=== PATIENT | female | born 1930 | race Hispanic/Latino ===

== ENCOUNTER 2017-10-15 12:21 | Emergency (ER) | payer OTHER ==
--- NOTE | 2017-10-15 13:42 | RAD REPORT ---
EXAM DESCRIPTION: RAD - Hip Right 2 View - 10/15/2017 1:23 pm CLINICAL HISTORY: Right hip pain, noticeable limp COMPARISON: None. FINDINGS: AP and frog-leg views of the right hip were obtained. There is no fracture or dislocation . Femoral head maintains smooth rounded contour. No AVN or focal femoral head abnormality. Very mini mal degenerative change along the acetabular rim. No periarticular mass or hematoma. IMPRESSION: Negative right hip examination for acute findings.
[2017-10-15] MEDS ORDERED: HYDROCODONE/APAP 5/325 MG TAB ONE (15:46)
[2017-10-15] MEDS ORDERED: KETOROLAC 30 MG/ML INJ ONE (15:46)
[2017-10-15 15:53] LABS: Urine Blood NEGATIVE (NEG); Urine Glucose NEGATIVE (NEG); Urine Protein NEGATIVE (NEG)
--- NOTE | 2017-10-15 16:01 | ER ---
Nurse's Notes [facility] Name: Nela Ennis Age: 87 yrs Sex: Female : 1930 Arrival Date: 10/15/2017 Time: 12:26 Bed 27 Private MD: Diagnosis: Pain in right hip Presentation: 10/15 12:39 Presenting complaint: Child states: its been a couple of days shes been limping and hj been complaining of R hip pain; denies trauma or fall;. Transition of care: patient was not received from another setting of care. Onset of symptoms was October 15, 2017. Care prior to arrival: None. 12:39 Method Of Arrival: Ambulatory hj 12:39 Acuity: BUFFY 4 hj Triage Assessment: 12:42 General: Appears in no apparent distress. uncomfortable, Behavior is calm, cooperative, hj appropriate for age. Pain: Complains of pain in right hip. Historical: - Allergies: 12:41 PENICILLINS; hj - Home Meds: 12:41 clopidogrel 75 mg Oral tab 1 tab once daily [Active]; Crestor 5 mg Oral tab 1 tab once hj daily [Active]; donepezil 5 mg Oral TbDL 1 tab once daily [Active]; memantine 10 mg Oral tab 1 tab 2 times per day [Active]; - PMHx: 12:41 Alzheimers; CAD; High Cholesterol; hj - PSHx: 12:41 Knee surgery; shoulder surgery; Heart stents; hj - Immunization history:: Pneumococcal vaccine is up to date, Flu vaccine is not up to date. - Social history:: Smoking status: Patient/guardian denies using tobacco. Screenin:12 Abuse screen: Denies threats or abuse. Nutritional screening: No deficits noted. kb1 Tuberculosis screening: No symptoms or risk factors identified. Fall Risk Gait- Impaired (20 pts.). Assessment: 15:11 General: Appears in no apparent distress. Behavior is calm, cooperative. Pain: kb1 Complains of pain in right hip, right side of back. Neuro: Level of Consciousness is awake, alert, obeys commands, Oriented to person, place, time, situation. Cardiovascular: Patient's skin is warm and dry. Respiratory: Respiratory effort is even, unlabored, Respiratory pattern is regular, symmetrical. GI: No signs and/or symptoms were reported involving the gastrointestinal system. : No signs and/or symptoms were reported regarding the genitourinary system. Derm: Skin is pink, warm \T\ dry. Musculoskeletal: Reports pain in right hip, worse when getting up or sitting down. 16:14 Reassessment: Patient appears in no apparent distress at this time. Patient and/or kb1 family updated on plan of care and expected duration. Pain level reassessed. Patient denies pain at this time. Vital Signs: 12:42 BP 118 / 37; Pulse 65; Resp 18; Temp 98.0(TE); Pulse Ox 99% on R/A; Weight 55.79 kg; hj Height 5 ft. 2 in. (157.48 cm); Pain 10/10; 15:12 BP 149 / 50; Pulse 63; Resp 18; Pulse Ox 99% on R/A; kb1 16:15 BP 143 / 48; Pulse 53; Resp 18; Pulse Ox 99% ; kb1 12:42 Body Mass Index 22.50 (55.79 kg, 157.48 cm) ED Course: 12:26 Patient arrived in ED. mr 12:41 Triage completed. hj 12:42 Arm band placed on left wrist. hj 13:16 X-ray completed. Patient tolerated procedure well. Patient moved back from radiology. 1 14:57 Mona Wagner, RUTH is Primary Nurse. kb1 15:02 [facility]C [facility] snw 15:02 Tan Hester MD is Attending Physician. snw 15:12 Patient has correct armband on for positive identification. Bed in low position. Call kb1 light in reach. Side rails up X 1. Pulse ox on. NIBP on. 15:12 No provider procedures requiring assistance completed. kb1 15:45 Straight cath inserted, using sterile technique, Specimen obtained. kb1 16:00 Trae Casillas MD is Referral Physician. snw 16:16 Patient did not have IV access during this emergency room visit. kb1 Administered Medications: 15:46 Drug: [place] 5 mg-325 mg 1 tabs Route: PO; kb1 15:46 Drug: TORadol 30 mg Route: IM; Site: right deltoid; kb1 Outcome: 16:01 Discharge ordered by . snw 16:15 Discharged to home via wheelchair, with family. kb1 16:15 Condition: improved 16:15 Discharge instructions given to family, Instructed on discharge instructions, follow up and referral plans. medication usage, Demonstrated understanding of instructions, follow-up care, medications, Prescriptions given X 1. 16:26 Patient left the ED. kb1 Signatures: Nena Hernandez, ZEE-C INSERTING OPERATOR-[place] Ynes Wallace Pamela Edwards mh1 Marcos Lozano RN RN hj Mona Wagner RN RN kb1 Corrections: (The following items were deleted from the chart) 12:44 12:42 Pulse 65bpm; Resp 18bpm; Pulse Ox 99% RA; Temp 98.0F Temporal; 55.79 kg; Height 5 hj ft. 2 in.; BMI: 22.5; Pain 10/10; hj
--- NOTE | 2017-10-15 16:02 | EDPHYS ---
Physician Documentation [facility] Name: Nela Ennis Age: 87 yrs Sex: Female : 1930 Arrival Date: 10/15/2017 Time: 12:26 Bed 27 Private MD: ED Physician Tan Hester HPI: 10/15 15:23 This 87 yrs old Female presents to ER via Ambulatory with complaints of Hip snw Pain. 15:23 The patient or guardian reports pain. that occurred at home, sustained from unknown snw reason, There is no obvious deformity, The patient is able to ambulate with assistance. The patient is able to bear their full body weight. There is no radiation of the patient's discomfort. The patient was discovered at or immediately after the incident. The complaints affect the right hip. Onset: The symptoms/episode began/occurred gradually, 4 day(s) ago, and became persistent. Associated signs and symptoms: Loss of consciousness: the patient experienced no loss of consciousness. Severity of symptoms: At their worst the symptoms were moderate. It is unknown whether or not the patient has had similar symptoms in the past. The patient has not recently seen a physician, the patient's primary care provider is Dr. Casillas. No hx of fall, trauma. Historical: - Allergies: 12:41 PENICILLINS; hj - Home Meds: 12:41 clopidogrel 75 mg Oral tab 1 tab once daily [Active]; Crestor 5 mg Oral tab 1 tab once hj daily [Active]; donepezil 5 mg Oral TbDL 1 tab once daily [Active]; memantine 10 mg Oral tab 1 tab 2 times per day [Active]; - PMHx: 12:41 Alzheimers; CAD; High Cholesterol; hj - PSHx: 12:41 Knee surgery; shoulder surgery; Heart stents; hj - Immunization history:: Pneumococcal vaccine is up to date, Flu vaccine is not up to date. - Social history:: Smoking status: Patient/guardian denies using tobacco. ROS: 15:23 Constitutional: Negative for fever, chills, and weight loss, Eyes: Negative for injury, snw pain, redness, and discharge, ENT: Negative for injury, pain, and discharge, Neck: Negative for injury, pain, and swelling, Cardiovascular: Negative for chest pain, palpitations, and edema, Respiratory: Negative for shortness of breath, cough, wheezing, and pleuritic chest pain, Abdomen/GI: Negative for abdominal pain, nausea, vomiting, diarrhea, and constipation, Back: Negative for injury and pain, : Negative for injury, bleeding, discharge, and swelling, Skin: Negative for injury, rash, and discoloration, Neuro: Negative for headache, weakness, numbness, tingling, and seizure. 15:23 MS/extremity: Positive for contusion, pain, of the right hip. Exam: 15:26 Constitutional: This is a well developed, well nourished patient who is awake, alert, snw and in no acute distress. Head/Face: Normocephalic, atraumatic. Eyes: Pupils equal round and reactive to light, extra-ocular motions intact. Lids and lashes normal. Conjunctiva and sclera are non-icteric and not injected. Cornea within normal limits. Periorbital areas with no swelling, redness, or edema. ENT: Nares patent. No nasal discharge, no septal abnormalities noted. Tympanic membranes are normal and external auditory canals are clear. Oropharynx with no redness, swelling, or masses, exudates, or evidence of obstruction, uvula midline. Mucous membranes moist. Neck: Trachea midline, no thyromegaly or masses palpated, and no cervical lymphadenopathy. Supple, full range of motion without nuchal rigidity, or vertebral point tenderness. No Meningismus. Chest/axilla: Normal chest wall appearance and motion. Nontender with no deformity. No lesions are appreciated. Cardiovascular: Regular rate and rhythm with a normal S1 and S2. No gallops, murmurs, or rubs. Normal PMI, no JVD. No pulse deficits. Respiratory: Lungs have equal breath sounds bilaterally, clear to auscultation and percussion. No rales, rhonchi or wheezes noted. No increased work of breathing, no retractions or nasal flaring. Abdomen/GI: Soft, non-tender, with normal bowel sounds. No distension or tympany. No guarding or rebound. No evidence of tenderness throughout. Back: No spinal tenderness. No costovertebral tenderness. Full range of motion. Skin: Warm, dry with normal turgor. Normal color with no rashes, no lesions, and no evidence of cellulitis. 15:26 Musculoskeletal/extremity: ROM: no acute changes, pain to palpation of right superior iliac crest 15:26 Neuro: Exam negative for acute changes, hx of dementia. Vital Signs: 12:42 BP 118 / 37; Pulse 65; Resp 18; Temp 98.0(TE); Pulse Ox 99% on R/A; Weight 55.79 kg; hj Height 5 ft. 2 in. (157.48 cm); Pain 10/10; 15:12 BP 149 / 50; Pulse 63; Resp 18; Pulse Ox 99% on R/A; kb1 16:15 BP 143 / 48; Pulse 53; Resp 18; Pulse Ox 99% ; kb1 12:42 Body Mass Index 22.50 (55.79 kg, 157.48 cm) hj MDM: 15:12 Patient medically screened. snw 16:07 Data reviewed: vital signs, nurses notes. Data interpreted: Pulse oximetry: on room air snw is 99 %. Interpretation: normal. Counseling: I had a detailed discussion with the patient and/or guardian regarding: the historical points, exam findings, and any diagnostic results supporting the discharge/admit diagnosis, the presence of at least one elevated blood pressure reading (>120/80) during this emergency department visit, lab results, radiology results, the need for outpatient follow up, to return to the emergency department if symptoms worsen or persist or if there are any questions or concerns that arise at home. Special discussion: I have referred the patient to see his PCP for further evaluation of high blood pressure. Based on the history and exam findings, there is no indication for further emergent testing or inpatient evaluation. I discussed with the patient/guardian the need to see the primary care provider for further evaluation of the symptoms. 10/15 15:22 Order name: Urine Culture snw 10/15 15:22 Order name: Urine Microscopic Only snw 10/15 12:43 Order name: XRAY Hip RIGHT 2 view hj 10/15 15:45 Order name: Urine Dipstick--Ancillary (enter results) ms 10/15 15:54 Order name: Urine Dipstick-Ancillary; Complete Time: 16:00 EDMS 10/15 16:22 Order name: Urine Microscopic Only; Complete Time: 17:31 EDMS 10/15 13:43 Order name: RAD; Complete Time: 15:02 EDMS 10/15 15:22 Order name: Urine Dipstick-Ancillary (obtain specimen); Complete Time: 15:45 snw 10/15 15:22 Order name: Cath; Complete Time: 15:45 snw Administered Medications: 15:46 Drug: [place] 5 mg-325 mg 1 tabs Route: PO; kb1 15:46 Drug: TORadol 30 mg Route: IM; Site: right deltoid; kb1 Disposition: 10/16 14:47 Co-signature as Attending Physician, Tan Hester MD I agree with the assessment and keegan plan of care. Disposition: 10/15/17 16:01 Discharged to Home. Impression: Pain in right hip. - Condition is Stable. - Discharge Instructions: Arthralgia, Musculoskeletal Pain, Hip Pain, Cryotherapy, Heat Therapy. - Prescriptions for Tylenol- Codeine #3 300-30 mg Oral Tablet - take 2 tablets by ORAL route every 6 hours As needed; 20 tablet. - Medication Reconciliation Form, Thank You Letter, Antibiotic Education, Prescription Opioid Use form. - Follow up: Trae Casillas MD; When: 1 - 2 days; Reason: Recheck today's complaints, Continuance of care, Re-evaluation by your physician. Follow up: Emergency Department; When: As needed; Reason: Worsening of condition. Signatures: Dispatcher [employer] Tan Mota MD MD cha Therrien, Shelly, JUNIOR WEB DEVELOPER-C JUNIOR WEB DEVELOPER-Csnw Marcos Lozano, RN Mona Saleem RN RN kb1
[2017-10-15 16:21] LABS: Urine RBC <5 /HPF (NONE SEEN)
[2017-10-15 16:22] LABS: Urine Bacteria <20 /HPF (<20); Urine Culture Reflex Order NOT NEEDED
== END 2017-10-15 16:26 | disposition home or self-care (01) ==
LOC: ER 12:21
DX: M25.551 Pain in right hip; Z88.0 Allergy status to penicillin; E78.00 Pure hypercholesterolemia, unspecified; I25.10 Atherosclerotic heart disease of native coronary artery without angina pectoris
CPT/HCPCS: 51702; 81003; 81015; 87086; 87088; 96372; 99284

== ENCOUNTER 2017-11-25 08:59 | Inpatient (IN) | payer OTHER ==
[2017-11-25] MEDS ORDERED: FENTANYL CITR 100 MCG/2 ML ONE (09:19)
[2017-11-25] MEDS ORDERED: ONDANSETRON 4 MG/2 ML VIAL ONE (09:20)
[2017-11-25 09:40] LABS: Protime INR 0.97
[2017-11-25 09:41] LABS: Absolute Lymphocytes (CBC) 0.9 K/uL (0.7-4.9); Absolute Monocytes 0.2 K/uL (0.1-1.3); Absolute Neutrophil 4.6 K/uL (1.8-8.0); Basophils % 0.2 % (0-1.3); Eosinophils % 0.9 % (0-4.4); Hematocrit 32.3 % (36.0-45.0); Lymphocytes % 16.2 % (15.3-44.8); MCV 89.2 fL (80-100); MPV 9.7 fL (7.6-11.3); Monocytes % 4.3 % (3.3-12.3); RBC Red Blood Cell Count 3.62 M/uL (3.86-4.86)
[2017-11-25 10:19] LABS: Potassium 3.9 mEq/L (3.6-5.0)
--- NOTE | 2017-11-25 10:23 | RAD REPORT ---
EXAM DESCRIPTION: RAD - Hip Right 2 View - 11/25/2017 10:03 am CLINICAL HISTORY: Fall, pain COMPARISON: None. FINDINGS: Spiral fracture involving the proximal shaft of the right femur is noted with small butter fly fragment. Degenerative changes involve the right hip. No dislocation evident. Fracture of the inferior and superior pubic rami of the pelvis also seen.
--- NOTE | 2017-11-25 10:24 | RAD REPORT ---
EXAM DESCRIPTION: RAD - Knee Right 3 View - 11/25/2017 10:03 am CLINICAL HISTORY: Fall, right knee pain COMPARISON: None. FINDINGS: Right total knee arthroplasty is present. A small suprapatellar joint effusion is seen. An acute fracture or dislocation is not present.
--- NOTE | 2017-11-25 10:35 | EDPHYS ---
Physician Documentation [facility] Name: Nela Ennis Age: 87 yrs Sex: Female : 1930 Arrival Date: 11/25/2017 Time: 09:14 Bed 16 Private MD: ED Physician Jese Haskins HPI: 11/25 10:16 This 87 yrs old Female presents to ER via EMS with complaints of fall. jr8 10:16 The patient presents with decreased range of motion, pain, tenderness. The complaints jr8 affect the right leg. Onset: The symptoms/episode began/occurred acutely, today. Modifying factors: The symptoms are alleviated by nothing. the symptoms are aggravated by movement. Associated signs and symptoms: The patient has no apparent associated signs or symptoms. Severity of symptoms: At their worst the symptoms were moderate, in the emergency department the symptoms are unchanged. The patient has not experienced similar symptoms in the past. The patient has not recently seen a physician. Patient stated that she normally has a hard time walking. Miss stepped and fell. Pain to right hip and knee. Brought in by EMS . Historical: - Allergies: 09:25 PENICILLINS; em - Home Meds: 09:25 memantine 10 mg Oral tab 1 tab 2 times per day [Active]; clopidogrel 75 mg Oral tab 1 em tab once daily [Active]; Tylenol #3 Oral as needed [Active]; rosuvastatin 5 mg oral tab 1 tab once daily [Active]; - PMHx: 09:25 Alzheimers; High Cholesterol; CAD; em - PSHx: 09:26 Unable to obtain; hj - Immunization history:: Flu vaccine is not up to date. - Social history:: Smoking status: Patient/guardian denies using tobacco. ROS: 10:16 Eyes: Negative for injury, pain, redness, and discharge, ENT: Negative for injury, jr8 pain, and discharge, Neck: Negative for injury, pain, and swelling, Cardiovascular: Negative for chest pain, palpitations, and edema, Respiratory: Negative for shortness of breath, cough, wheezing, and pleuritic chest pain, Abdomen/GI: Negative for abdominal pain, nausea, vomiting, diarrhea, and constipation, Back: Negative for injury and pain, Skin: Negative for injury, rash, and discoloration, Neuro: Negative for headache, weakness, numbness, tingling, and seizure. 10:16 MS/extremity: Positive for decreased range of motion, pain, tenderness, of the right leg. Exam: 10:16 Eyes: Pupils equal round and reactive to light, extra-ocular motions intact. Lids and jr8 lashes normal. Conjunctiva and sclera are non-icteric and not injected. Cornea within normal limits. Periorbital areas with no swelling, redness, or edema. ENT: Nares patent. No nasal discharge, no septal abnormalities noted. Tympanic membranes are normal and external auditory canals are clear. Oropharynx with no redness, swelling, or masses, exudates, or evidence of obstruction, uvula midline. Mucous membranes moist. Neck: Trachea midline, no thyromegaly or masses palpated, and no cervical lymphadenopathy. Supple, full range of motion without nuchal rigidity, or vertebral point tenderness. No Meningismus. Cardiovascular: Regular rate and rhythm with a normal S1 and S2. No gallops, murmurs, or rubs. Normal PMI, no JVD. No pulse deficits. Respiratory: Lungs have equal breath sounds bilaterally, clear to auscultation and percussion. No rales, rhonchi or wheezes noted. No increased work of breathing, no retractions or nasal flaring. Abdomen/GI: Soft, non-tender, with normal bowel sounds. No distension or tympany. No guarding or rebound. No evidence of tenderness throughout. Back: No spinal tenderness. No costovertebral tenderness. Full range of motion. Skin: Warm, dry with normal turgor. Normal color with no rashes, no lesions, and no evidence of cellulitis. Neuro: Awake and alert, GCS 15, oriented to person, place, time, and situation. Cranial nerves II-XII grossly intact. Motor strength 5/5 in all extremities. Sensory grossly intact. Cerebellar exam normal. Normal gait. 10:16 Musculoskeletal/extremity: Extremities: grossly normal except: noted in the right leg: decreased ROM, deformity, pain, ROM: limited active range of motion, limited passive range of motion, limited active range of motion due to pain, limited passive range of motion due to pain, Pulses: noted to be 2+ in the right dorsalis pedis artery and left dorsalis pedis artery, Sensation intact. Vital Signs: 09:21 BP 120 / 74; Pulse 58; Resp 18; Temp 97.9(O); Pulse Ox 100% on R/A; Weight 57.15 kg; hj Height 5 ft. 1 in. (154.94 cm); Pain 10/10; 09:21 Body Mass Index 23.81 (57.15 kg, 154.94 cm) hj MDM: 09:14 Patient medically screened. [facility] 10:33 Data reviewed: vital signs, nurses notes, lab test result(s), EKG, radiologic studies, [facility] plain films, and as a result, I will discharge patient. Data interpreted: Pulse oximetry: on room air is 100 %. Interpretation: normal. Counseling: I had a detailed discussion with the patient and/or guardian regarding: the historical points, exam findings, and any diagnostic results supporting the discharge/admit diagnosis, lab results, radiology results, the need for further work-up and treatment in the hospital. Physician consultation: Trae Casillas MD was called at 10:34, was contacted at 10:34, regarding admission, to the telemetry unit. consult, patient's condition, and will see patient. 10:33 ED course: Dr. Perez consulted and will see patient . [facility] 11/25 09:15 Order name: CBC with Diff; Complete Time: 09:58 [facility] 11/25 09:15 Order name: Basic Metabolic Panel; Complete Time: 10:21 [facility] 11/25 09:15 Order name: Protime (+inr); Complete Time: 09:58 [facility] 11/25 09:15 Order name: XRAY Hip RIGHT 2 view; Complete Time: 10:35 [facility] 11/25 09:15 Order name: XRAY Knee RIGHT 3 view; Complete Time: 10:35 [facility] 11/25 10:15 Order name: XRAY Chest (1 view); Complete Time: 11:00 [facility] 11/25 09:15 Order name: IV; Complete Time: 09:29 [facility] 11/25 10:15 Order name: EKG; Complete Time: 10:16 [facility] 11/25 10:43 Order name: CONS Physician Consult [facility] 11/25 11:00 Order name: XRAY Pelvis [facility] 11/25 12:25 Order name: RAD; Complete Time: 12:28 [facility] 11/25 10:15 Order name: EKG - Nurse/Tech; Complete Time: 11:00 [facility] 05/02 10:18 Order name: Leone; Complete Time: 13:57 jr8 Administered Medications: 09:29 Drug: fentaNYL (PF) 50 mcg Route: IVP; Site: left antecubital; hj 09:29 Follow up: Response: No adverse reaction; Pain is decreased hj 09:29 Drug: Zofran 4 mg Route: IVP; Site: left antecubital; hj 09:29 Follow up: Response: No adverse reaction hj 13:42 Drug: fentaNYL (PF) 50 mcg Route: IVP; Site: left antecubital; hj 13:57 Follow up: Response: No adverse reaction Disposition: 11/25/17 10:34 Hospitalization ordered by Trae Casillas for Inpatient Admission. Preliminary diagnosis is Spiral fracture of shaft of femur. - Bed requested for Telemetry/MedSurg (Inpatient). - Status is Inpatient Admission. hj - Condition is Fair. - Problem is new. - Symptoms are unchanged. UTI on Admission? No Signatures: Dispatcher [employer] Raven Magaña, RN RN dm5 Hai Barry, BUSHEL WORKER BUSHEL WORKER Enrique Carballo PA PA jr8 Marcos Lozano RN RN Janelle Olivo mw2 Corrections: (The following items were deleted from the chart) 14:23 10:34 Hospitalization Ordered by Trae Casillas MD for Inpatient Admission. Preliminary mw2 diagnosis is Spiral fracture of shaft of femur. Bed requested for Telemetry/MedSurg (Inpatient). Status is Inpatient Admission. Condition is Fair. Problem is new. Symptoms are unchanged. UTI on Admission? No. jr8 15:25 14:23 11/25/2017 10:34 Hospitalization Ordered by Trae Casillas MD for Inpatient hj Admission. Preliminary diagnosis is Spiral fracture of shaft of femur. Bed requested for Telemetry/MedSurg (Inpatient). Status is Inpatient Admission. Condition is Fair. Problem is new. Symptoms are unchanged. UTI on Admission? No. mw2
--- NOTE | 2017-11-25 10:35 | ER ---
Nurse's Notes [facility] Name: Nela Ennis Age: 87 yrs Sex: Female : 1930 Arrival Date: 11/25/2017 Time: 09:14 Bed 16 Private MD: Diagnosis: Spiral fracture of shaft of femur Presentation: 11/25 09:20 Presenting complaint: EMS states: called out for fall, c/o of right hip and right knee em pain with deformity noted to right knee, denies hitting head or LOC, does take Plavix. Transition of care: patient was not received from another setting of care. Onset of symptoms was November 25, 2017. Initial Sepsis Screen: Does the patient meet any 2 criteria? No. Patient's initial sepsis screen is negative. Does the patient have a suspected source of infection? No. Patient's initial sepsis screen is negative. Care prior to arrival: Splint applied. 09:20 Method Of Arrival: EMS: [facility] em 09:20 Acuity: BUFFY 3 hj Triage Assessment: 09:26 General: Appears uncomfortable, Behavior is calm, cooperative. Pain: Complains of pain em in right hip and left leg. Historical: - Allergies: 09:25 PENICILLINS; em - Home Meds: 09:25 memantine 10 mg Oral tab 1 tab 2 times per day [Active]; clopidogrel 75 mg Oral tab 1 em tab once daily [Active]; Tylenol #3 Oral as needed [Active]; rosuvastatin 5 mg oral tab 1 tab once daily [Active]; - PMHx: 09:25 Alzheimers; High Cholesterol; CAD; em - PSHx: 09:26 Unable to obtain; hj - Immunization history:: Flu vaccine is not up to date. - Social history:: Smoking status: Patient/guardian denies using tobacco. Screenin:25 Abuse screen: Denies threats or abuse. Nutritional screening: No deficits noted. em Tuberculosis screening: No symptoms or risk factors identified. Fall Risk None identified. Vital Signs: 09:21 BP 120 / 74; Pulse 58; Resp 18; Temp 97.9(O); Pulse Ox 100% on R/A; Weight 57.15 kg; hj Height 5 ft. 1 in. (154.94 cm); Pain 10/10; 09:21 Body Mass Index 23.81 (57.15 kg, 154.94 cm) ED Course: 09:14 Patient arrived in ED. hj 09:14 Enrique Avilez PA is PHCP. jr8 09:14 Jese Haskins MD is Attending Physician. jr8 09:15 Marcos Lozano, RUTH is Primary Nurse. hj 09:27 Arm band placed on. em 09:27 Patient has correct armband on for positive identification. Placed in gown. Bed in low em position. Call light in reach. Side rails up X2. Adult w/ patient. 09:31 Inserted saline lock: 20 gauge in left antecubital area, using aseptic technique. mw1 09:45 X-ray completed. Portable x-ray completed in exam room. TOLERATED WITH PAIN. jb2 10:03 XRAY Hip RIGHT 2 view In Process Unspecified. EDMS 10:03 XRAY Knee RIGHT 3 view In Process Unspecified. EDMS 10:34 Trae Casillas MD is Hospitalizing Provider. jr8 10:47 X-ray completed. Portable x-ray completed in exam room. Patient tolerated procedure sw well. 10:49 XRAY Chest (1 view) In Process Unspecified. EDMS 11:00 EKG done, by ED staff, reviewed by Enrique CANCINO. jb1 13:20 Triage completed. hj 15:24 No provider procedures requiring assistance completed. Patient admitted, IV remains in hj place. intact. Administered Medications: 09:29 Drug: fentaNYL (PF) 50 mcg Route: IVP; Site: left antecubital; hj 09:29 Follow up: Response: No adverse reaction; Pain is decreased hj 09:29 Drug: Zofran 4 mg Route: IVP; Site: left antecubital; hj 09:29 Follow up: Response: No adverse reaction hj 13:42 Drug: fentaNYL (PF) 50 mcg Route: IVP; Site: left antecubital; hj 13:57 Follow up: Response: No adverse reaction hj Outcome: 10:34 Decision to Hospitalize by Provider. jr8 15:24 Admitted to Tele accompanied by tech, family with patient, via stretcher, room 411, hj with chart, Report called to RUTH Marroquin 15:24 Condition: stable 15:24 Instructed on the need for admit, Demonstrated understanding of instructions. 15:25 Patient left the ED. hj Signatures: Dispatcher [employer] EDMS Ilya Willis1 Hank Garcia2 Hai Barry, MENTAL HEALTH TECH MENTAL HEALTH TECH em Enrique Avilez PA PA jr8 Maria Guadalupe Carson Henry, RN RN hj Waits, Michael 1 Corrections: (The following items were deleted from the chart) 09:33 09:20 Presenting complaint: EMS states: called out for fall, c/o of right hip and right em knee pain with deformity noted, denies hitting head or LOC em
[2017-11-25] MEDS ORDERED: ONDANSETRON 4 MG/2 ML VIAL IV PRN (10:50)
--- NOTE | 2017-11-25 10:59 | RAD REPORT ---
EXAM DESCRIPTION: Erik Single View11/25/2017 10:52 am CLINICAL HISTORY: Preop for hip surgery COMPARISON: June 2017 FINDINGS: The lungs appear clear of acute infiltrate. The heart is normal size IMPRESSION: No acute abnormalities displayed
[2017-11-25] MEDS: NA CHLORIDE 0.9% 1,000 ML IV SCH (11:00)
[2017-11-25 11:59] VITALS: BMI 23.8
--- NOTE | 2017-11-25 12:17 | EKG ---
Test Date: 2017-11-25 Test Time: 10:45:28 Mail Messenger Contractor: KELLY MEASUREMENT RESULTS: Intervals: Rate: 57 CA: 164 QRSD: 76 QT: 422 QTc: 410 [place]: P: 68 CA: 164 QRS: 26 T: 62 INTERPRETIVE STATEMENTS: Sinus bradycardia Otherwise normal ECG Compared to ECG 12/12/2014 16:48:55 No significant changes Electronically Signed On 11-25-17 12:15:52 CDT by Ravinder Aaron
--- NOTE | 2017-11-25 12:24 | RAD REPORT ---
EXAM DESCRIPTION: RAD - Pelvis - 11/25/2017 11:54 am CLINICAL HISTORY: Fall, pain COMPARISON: Recent radiographs. FINDINGS: Spiral fracture involving the proximal right femoral shaft is noted. Involvement the lesse r trochanter is seen. Fracture also noted involving the superior and inferior pubic rami on the right .
[2017-11-25] MEDS ORDERED: NA CHLORIDE 0.9% 1,000 ML ONE (13:14)
[2017-11-25] MEDS: Morphine 2 MG/2 ML SYR IV PRN ×2 (16:52→21:01)
--- NOTE | 2017-11-25 19:08 | CON ---
An 87-year-old woman. Chief Complaint: None. History Of Present Illness: Her family noticed she fell and then she was unable to stand. She has b een in the emergency room, had x-rays and she has a complicated fracture of the right femur. It is n ot the usual intertrochanteric fracture, but a more involved fracture. I am not aware of any assessm ent by an orthopedic surgeon yet. I am asked to see her because of her history of coronary heart dis ease and to assess her suitability for going through surgery with general anesthesia. The patient lua s a history of coronary heart disease. She had a stent in her left main. It was somewhere around 8 years ago and then it was very successful. She had left main stenosis without much disease in any ot her arteries. A stent was placed because at that time she was demented and felt to be a poor tuyet te to undergo bypass surgery. The stent turned out to be quite good thing and in February of this year , we did a cardiac cath because of possible ischemia and found that the stent was widely patent. She had no significant CAD at the time. Her ejection fraction was normal, and the stent seems to be a l chasity-term great benefit to her. She has a history of severe dementia, history of intracoronary stent. She has dyslipidemia. She does not have diabetes. Medications: Outpatient medications are memantine, Plavix, Crestor. Social History: The patient has never used tobacco. Physical Examination: General: She is 57 kg, 5 feet and 1 inch tall. Body mass index 23. She is awake, alert, but comple tely confused, disoriented. Does not appear to be in distress. Does not like to stay still, but warner s not appear to be in much pain. Vital Signs: Blood pressure 120/74, pulse 58, respirations 18, temperature 97.9. Lungs: Clear. Heart: Reveals 1 to 2/6 systolic ejection type murmur. No diastolic murmur. Extremities: Palpable but diminished distal pulses. There are no sores or ulcers, evidence of sever e ischemia of the legs. Diagnostic Data: Electrocardiogram reveals sinus bradycardia, otherwise it is normal. Recommendation: So, I think the patient's heart is okay. She is a low risk patient for undergoing a nesthesia and orthopedic surgery. Her main risk I think is of becoming more demented with anesthesia . The orthopedic surgeon believes she needs surgery. Her cardiac condition would definitely permit that to go on. TONG Voice ID: [id number] Report ID: [id number]
[2017-11-26] MEDS: Morphine 2 MG/2 ML SYR IV PRN ×3 (04:19→13:29)
[2017-11-26 04:20] LABS: Absolute Lymphocytes (CBC) 1.2 K/uL (0.7-4.9); Absolute Monocytes 0.6 K/uL (0.1-1.3); Absolute Neutrophil 4.4 K/uL (1.8-8.0); Basophils % 0.2 % (0-1.3); Hematocrit 24.3 % (36.0-45.0); Lymphocytes % 18.8 % (15.3-44.8); MCH 30.9 pg (27.0-35.0); MCV 89.8 fL (80-100); MPV 10.3 fL (7.6-11.3); Monocytes % 9.6 % (3.3-12.3); RBC Red Blood Cell Count 2.71 M/uL (3.86-4.86)
[2017-11-26 04:30] LABS: Potassium 5.2 mEq/L (3.6-5.0)
--- NOTE | 2017-11-26 08:22 | HP ---
Date of Admission: 11/25/2017 Chief Complaint: Fall and fracture of femur. History Of Present Illness: An 87-year-old female had a fall accidentally and was brought to the ER. Evaluation showed fracture of the femur, right side. The patient is admitted for possible surgery. There is no history of chest pain, shortness of breath of breath, or other neurological symptoms. Past Medical History: Positive for Alzheimer disease, hyperlipidemia, and history of coronary artery disease. Family History: Noncontributory. Personal History: Nonsmoker. Home Medicines: Please refer to the chart. Review of Systems: No chest pain or shortness of breath of breath. Physical Examination: General: Revealed an 87-year-old female, confused. HEENT: No evidence of head injury. Neck: Supple JVD negative. Chest: Clear. Heart: Regular. Abdomen: Soft, nontender. Extremities: Tender right femur noted. Assessment: 1.Fractured femur, right. 2.Alzheimer disease. 3.Hyperlipidemia. Plan: Orthopedic consultation for possible surgery. Cardiac clearance is requested. OBDULIA/CHAD Voice ID: [id number]
[2017-11-26] MEDS: NA CHLORIDE 0.9% 1,000 ML IV SCH (09:30)
--- NOTE | 2017-11-26 10:43 | CON ---
Date of Consultation: 11/25/2017 This may not be the first time I am seeing this patient to my knowledge. Family says that she may lua ve seen me for her hand in the past, but this is definitely a new problem that I am seeing her for an d I do not know exactly when I had seen her in the past. She is an 87-year-old female, who unfortuna tely fell injuring her right lower extremity. She was seen and examined in the emergency department where she was ruled out for other injuries; however, x-rays demonstrate a total knee arthroplasty, wh ich appears doing well as well as a proximal femur fracture consistent with subtrochanteric fracture. Physical Examination: All of her long bones and joints are palpated without any pain or crepitation with the exception of p ain with deep palpation, manipulation of the right lower extremity above the knee. There is no sign of an open injury. The patient herself unfortunately does suffer from dementia, although family is u nable to give a history. She says that she has had trouble with her right lower extremity for someti me, complaining that it is giving way on her; however, she was able to walk. She is also on Plavix a nd does have a history of stents. Assessment: This is an 87-year-old female, now with dementia, now with subtrochanteric femur fractur e on the right with an adjacent right total knee arthroplasty, which appears to be doing well. Plan: At this time, I have discussed the plan with her family. We will proceed with operative inter vention, which would be open versus closed reduction of the subtrochanteric femur fracture with place ment of an intramedullary nail. We have discussed with them in detail that this can be a serious thiago ak and the risks associated with it. They state they understand things as presented. She will at th is time be admitted to the hospitalist and most likely we will move her for this tomorrow, probably bernie mancilla in the evening. I would make her n.p.o. after 9 a.m., otherwise SCDs to left lower extremity. Benson Leone, I think, is definitely reasonable, an d decubitus precautions. /CHAD Voice ID: [id number] Report ID: [id number]
--- NOTE | 2017-11-26 12:13 | PN ---
Date of Progress Note: 11/26/2017 Ms. Ennis was seen by Dr. Aaron yesterday for cardiac clearance for hip surgery. Telemetry showed n o changes. No cardiac symptoms. Awaiting surgery today, supposed to be at 5:30 p.m. We will contin ue to follow her postoperatively. No change in medical therapy at this point. WINIFRED/CHAD Voice ID: [id number] Report ID: [id number]
[2017-11-26] MEDS ORDERED: MIDAZOLAM HCL 2 MG/2 ML INJ ONE (16:05)
[2017-11-26] MEDS ORDERED: FENTANYL CITR 100 MCG/2 ML ONE (16:05)
[2017-11-26] MEDS ORDERED: KETOROLAC 30 MG/ML INJ ONE (16:05)
[2017-11-26] MEDS ORDERED: ETOMIDATE 20 MG/10 ML VIAL IV ONE (16:06)
[2017-11-26] MEDS ORDERED: TRANEXAMIC ACID 1,000 MG in NA CHLORIDE 0.9% 50 ML IV ONE ×2 (16:52→17:00)
[2017-11-26] MEDS ORDERED: CLINDAMYCIN INJ 900 MG in NA CHLORIDE 0.9% 50 ML IV ONE (16:52)
[2017-11-26] MEDS ORDERED: EPHEDRINE SULF 50 MG/5 ML SYR ONE (17:11)
[2017-11-26] MEDS ORDERED: ALBUMIN HUM 5% 250 ML IV ONE (17:13)
--- NOTE | 2017-11-26 18:42 | P.BOP ---
Preoperative diagnosis: right proximal femur fracture Postoperative diagnosis: same Primary procedure: right im faith fixation Estimated blood loss: 200 Anesthesia: General Transferred to: Recovery Room Condition: Good
[2017-11-26] MEDS ORDERED: MEPERIDINE HCL 25 MG/0.5 ML ONE (18:54)
[2017-11-26] MEDS ORDERED: NA CHLORIDE 0.9% 1,000 ML ONE (18:59)
--- NOTE | 2017-11-26 19:23 | RAD REPORT ---
EXAM DESCRIPTION: RAD - Hip In Or - 11/26/2017 6:40 pm FINDINGS: Multiple portable C-arm views of the left hip were obtained during fluoroscopic assisted p lacement of fracture fixation hardware. No suspicious or unexpected finding.
[2017-11-27] MEDS ORDERED: NA CHLORIDE 0.9% 250 ML ONE ×2 (00:07→14:34)
[2017-11-27] MEDS: Morphine 2 MG/2 ML SYR IV PRN ×5 (00:12→23:24)
[2017-11-27] MEDS: CLINDAMYCIN INJ 900 MG in NA CHLORIDE 0.9% 50 ML IV SCH ×2 (01:00→09:30)
[2017-11-27] MEDS ORDERED: CLINDAMYCIN IV 150 MG/ML (6 mL) VIAL ONE (03:19)
[2017-11-27] MEDS ORDERED: NA CHLORIDE 0.9% 50 ML ONE (03:39)
[2017-11-27] MEDS: NA CHLORIDE 0.9% 1,000 ML IV SCH ×2 (03:42→23:00)
--- NOTE | 2017-11-27 05:23 | OP ---
Date of Procedure: 11/26/2017 Surgeon: Neil Perez MD Preoperative Diagnosis: Right proximal femur fracture. Postoperative Diagnosis: Right proximal femur fracture. Procedure: Right proximal femur intramedullary faith fixation. Estimated Blood Loss: 200 cc. Complications: There were no complications. Specimen: No pathology specimen sent. Indication For Operation: The patient is an 87-year-old female, who unfortunately fell injuring her right lower extremity. She also does have superior and inferior pubic rami fractures. However, x-rays demonstrated that she has a spiral distal femur fracture which involves the lesser trochanter. All risks, benefits, and alternatives of fixation were discussed with the patient and family. The patient unfortunately does suffer from some dementia, but the family understands everything as presented and wishes to proceed. Description Of Procedure: The patient was taken to the operating room and placed in supine position. General anesthesia obtained by staff. Following this , she was then transferred to the fracture table. All of her bony prominences were checked by Anesthesia. She was appropriately positioned on the fracture table. Fracture table is able to align the fracture quite well with the exception of some sagging, which can be corrected with manual pressure. Following this, the right lower extremity was then prepped and draped in the usual sterile fashion for the procedure. The position of the greater trochanter was then marked using the C-arm. A vertical incision made just above the greater trochanter and it was taken down carefully through skin and soft tissue. The greater trochanter was palpated. A starting point was made medial to the greater trochanter to allow for better control of the subtrochanteric fracture. It was also checked in the lateral to make sure it is progressing correctly. Following this, the guide faith was then placed without significant difficulty across the fracture site. This was then followed by hand reaming, then followed by reaming of the cortex up to a size 13. Following this, a nail was placed, which goes to the most distal aspect possible of the knee to avoid stress wherever it is possible. This was placed without difficulty. Following this, cephalomedullary screws were placed. Internal and external rotation of the foot were done in an attempt to align rotationally as well as possible as when the best possible rotation was is judged to be obtained. Perfect circles were used to place the distal interlocking screw, which was done without difficulty or complication. Following this, the wounds were irrigated and the fascia was closed in a watertight fashion using heavy Vicryl sutures, followed by closure of skin using Vicryl sutures, followed by andrew. The patient was then awakened and placed on her bed and taken to recovery room in good condition. There were no complications. ELVIE Voice ID: [id number] Report ID: [id number] CESIA
[2017-11-27 05:30] LABS: Hematocrit 18.4 % (36.0-45.0)
[2017-11-27 05:35] LABS: MPV 10.7 fL (7.6-11.3)
[2017-11-27 05:42] LABS: Protime INR 1.05
[2017-11-27 07:28] LABS: Platelet Estimate DECR
[2017-11-27] MEDS: CLOPIDOGREL 75 MG TABLET PO SCH (09:31)
[2017-11-27] MEDS: ASPIRIN EC 81 MG TAB PO SCH (09:31)
[2017-11-27] MEDS: MEMANTINE HCL 10 MG TABLET PO SCH ×2 (09:31→21:25)
[2017-11-27] MEDS ORDERED: NA CHLORIDE 0.9% 500 ML ONE (10:45)
[2017-11-27] MEDS ORDERED: DIPHENHYDRAMINE 50 MG/ML VIAL IV ONE (15:50)
[2017-11-27 21:11] LABS: Hematocrit 23.9 % (36.0-45.0)
[2017-11-27] MEDS: ROSUVASTATIN 10 MG TAB PO SCH (21:26)
--- NOTE | 2017-11-27 23:47 | PN ---
Subjective: The patient's hemoglobin now went down. She is receiving the second unit of packed RBC now. Her platelet count is low, in view of that she will not receive Lovenox for prevention of DVT. She was restarted on Plavix and aspirin. Her platelet counts will be followed. OBDULIA/CHAD Voice ID: [id number] Report ID: [id number]
[2017-11-28] MEDS: Morphine 2 MG/2 ML SYR IV PRN ×3 (04:31→13:27)
--- NOTE | 2017-11-28 06:42 | PN ---
Date of Progress Note: 11/27/2017 The patient is seen today. Her dressing is clean, dry, and intact. Her heels are nontender. There does not appear to be any very large hematoma or blood collection. She herself does suffer from pricilla ntia and has been really unable to tell me any details. She has been afebrile. There is a hemoglobi n which is done at 4 o'clock this morning, which is 6.3, also platelet count of 84. At this point, candelario mossld desire anticoagulation; however, most likely does need transfusion. We will discuss this with sb claudio hospitalist with regard to anticoagulation and transfusion. She is already on Plavix and we will have to make adjustments based on that. Most of the time, we will proceed with Plavix and aspirin fo r DVT prophylaxis in patients with Plavix; however, we will also continue SCDs and discuss with the ospitalist. ELVIE Voice ID: [id number] Report ID: [id number]
[2017-11-28 08:01] LABS: Absolute Lymphocytes (CBC) 0.8 K/uL (0.7-4.9); Absolute Monocytes 0.6 K/uL (0.1-1.3); Absolute Neutrophil 4.7 K/uL (1.8-8.0); Basophils % 0.2 % (0-1.3); Eosinophils % 0.8 % (0-4.4); Hematocrit 24.5 % (36.0-45.0); Lymphocytes % 12.5 % (15.3-44.8); MCH 28.6 pg (27.0-35.0); MCV 85.2 fL (80-100); MPV 9.9 fL (7.6-11.3); Monocytes % 9.4 % (3.3-12.3); RBC Red Blood Cell Count 2.87 M/uL (3.86-4.86)
[2017-11-28] MEDS: MEMANTINE HCL 10 MG TABLET PO SCH ×2 (09:07→20:44)
[2017-11-28] MEDS: ASPIRIN EC 81 MG TAB PO SCH (09:07)
[2017-11-28] MEDS: CLOPIDOGREL 75 MG TABLET PO SCH (09:07)
[2017-11-28] MEDS: NA CHLORIDE 0.9% 1,000 ML IV SCH ×2 (13:34→19:00)
[2017-11-28] MEDS: ACETAMINOPHEN 500 MG TAB PO PRN (17:37)
--- NOTE | 2017-11-28 19:54 | PN ---
The patient is confused; otherwise, there is no change of her symptoms. The patient still has modera te pain. The patient's hemoglobin is holding up 48 g. Her platelet count is 280,000, however, it lua s not dropped any further. The patient will be continued on the same lines. A discussion was done w ith the family regarding a postoperative physical therapy and followup. The patient's family will de cide whether they want to get this done at home. OBDULIA/CHAD Voice ID: [id number] Report ID: [id number]
[2017-11-28] MEDS: CODEINE 30MG/APAP 300MG TAB PO PRN (20:44)
[2017-11-28] MEDS: ROSUVASTATIN 10 MG TAB PO SCH (20:44)
--- NOTE | 2017-11-29 02:01 | DS ---
Subjective: The patient is seen today. She is arousable. She does have dementia. Family is in the room. They said that she has been sitting up with physical therapy. She recently had some pain, re lieved with medications. Appears to them, she is doing well with the exception of her eating, which she is not eating very much at this time. Otherwise, her dressing is clean, dry, and intact. No sig n of expanding hematoma. Her heel is clear. She does still have a low hemoglobin in the low 8. How ever, we will defer the decision to transfuse to medical doctors. I do not really think that she has much ongoing active bleeding, and I do not think that she needs any consideration of any further ope rative intervention. Otherwise, she will continue with physical therapy for placement. Also, they w ill monitor her hemoglobin. She has been afebrile. /CHAD Voice ID: [id number] Report ID: [id number]
[2017-11-29] MEDS: CODEINE 30MG/APAP 300MG TAB PO PRN ×3 (08:33→19:57)
[2017-11-29] MEDS: MEMANTINE HCL 10 MG TABLET PO SCH ×2 (09:05→20:25)
[2017-11-29] MEDS: ASPIRIN EC 81 MG TAB PO SCH (09:05)
[2017-11-29] MEDS: CLOPIDOGREL 75 MG TABLET PO SCH (09:05)
[2017-11-29] MEDS: NA CHLORIDE 0.9% 1,000 ML IV SCH ×2 (09:10→15:00)
[2017-11-29] MEDS: ROSUVASTATIN 10 MG TAB PO SCH (20:25)
[2017-11-29] MEDS: ALPRAZOLAM 0.25 MG TABLET PO PRN (21:04)
[2017-11-30] MEDS: CLOPIDOGREL 75 MG TABLET PO SCH (08:37)
[2017-11-30] MEDS: ASPIRIN EC 81 MG TAB PO SCH (08:37)
[2017-11-30] MEDS: MEMANTINE HCL 10 MG TABLET PO SCH ×2 (08:37→21:07)
[2017-11-30] MEDS: CODEINE 30MG/APAP 300MG TAB PO PRN ×2 (10:16→21:09)
--- NOTE | 2017-11-30 18:13 | PN ---
The patient is stable, and I spoke to the family regarding her rehab. They want her to take her home and have rehab arranged at home. I spoke to the charge nurse, she will look into this and arrangeme nts will be made. OBDULIA/CHAD Voice ID: [id number] Report ID: [id number]
[2017-11-30] MEDS: ROSUVASTATIN 10 MG TAB PO SCH (21:08)
[2017-12-01] MEDS: MEMANTINE HCL 10 MG TABLET PO SCH ×2 (08:17→20:31)
[2017-12-01] MEDS: CLOPIDOGREL 75 MG TABLET PO SCH (08:17)
[2017-12-01] MEDS: ASPIRIN EC 81 MG TAB PO SCH (08:17)
[2017-12-01] MEDS: CODEINE 30MG/APAP 300MG TAB PO PRN ×2 (09:56→18:28)
[2017-12-01] MEDS: ROSUVASTATIN 10 MG TAB PO SCH (20:30)
--- NOTE | 2017-12-01 22:15 | PN ---
The patient is doing well. She is afebrile. Her lungs are clear to auscultation. I spoke to the nu rse regarding rehab, now it is clear that the patient will be getting rehab at home as soon as she is discharged by the orthopedic jury consultant. She will be discharged by me and arranged for home health. OBDULIA/CHAD Voice ID: [id number] Report ID: [id number]
[2017-12-02] MEDS: ASPIRIN EC 81 MG TAB PO SCH (08:30)
[2017-12-02] MEDS: MEMANTINE HCL 10 MG TABLET PO SCH ×2 (08:30→21:30)
[2017-12-02] MEDS: CLOPIDOGREL 75 MG TABLET PO SCH (08:30)
[2017-12-02] MEDS: ACETAMINOPHEN 500 MG TAB PO PRN ×2 (09:32→21:30)
[2017-12-02] MEDS: ROSUVASTATIN 10 MG TAB PO SCH (21:29)
[2017-12-02 21:54] LABS: Absolute Lymphocytes (CBC) 0.5 K/uL (0.7-4.9); Absolute Monocytes 0.4 K/uL (0.1-1.3); Basophils % 0.4 % (0-1.3); Eosinophils % 0.9 % (0-4.4); Hematocrit 24.4 % (36.0-45.0); MCH 29.3 pg (27.0-35.0); MCV 85.3 fL (80-100); MPV 8.1 fL (7.6-11.3); Monocytes % 6.8 % (3.3-12.3); RBC Red Blood Cell Count 2.86 M/uL (3.86-4.86)
[2017-12-02] MEDS ORDERED: Levofloxacin500mg IV 500 MG/100 ML BAG IV ONE (22:00)
[2017-12-02 22:06] LABS: Bilirubin Total 1.5 mg/dL (0.3-1.2); Protein, Total 5.8 g/dL (6.0-8.3)
--- NOTE | 2017-12-02 22:46 | RAD REPORT ---
EXAM DESCRIPTION: RAD - Chest Single View - 12/02/2017 9:46 pm CLINICAL HISTORY: Pneumonia COMPARISON: November 25 TECHNIQUE: AP portable chest image was obtained 2135 hours . FINDINGS: No peripheral mass or consolidation. Lung markings are similar to the comparison. Heart an d vasculature are normal. No measurable pleural effusion and no pneumothorax. No gross bony abnormali ty seen. No acute aortic findings suspected. IMPRESSION: No acute cardiopulmonary process. No focal pneumonia seen. No significant change from comparison.
--- NOTE | 2017-12-03 02:08 | PN ---
The patient's family decided to consider residential placement; however, I checked her vital signs. She has fever today. She will have a chest x-ray and urinalysis to see whether she is having any ur inary or pulmonary infection. OBDULIA/CHAD Voice ID: [id number] Report ID: [id number]
[2017-12-03 03:24] LABS: Urine Culture Reflex Order NOT NEEDED
[2017-12-03 03:25] LABS: Urine Bacteria LOADED /HPF (<20)
[2017-12-03] MEDS: MEMANTINE HCL 10 MG TABLET PO SCH ×2 (08:08→21:16)
[2017-12-03] MEDS: CLOPIDOGREL 75 MG TABLET PO SCH (08:08)
[2017-12-03] MEDS: ASPIRIN EC 81 MG TAB PO SCH (08:08)
[2017-12-03] MEDS: ACETAMINOPHEN 500 MG TAB PO PRN ×2 (09:12→15:20)
[2017-12-03] MEDS: BISACODYL E.C. 5 MG TAB PO PRN (12:38)
[2017-12-03] MEDS ORDERED: Levofloxacin 250mg IV 250 MG/50 ML BAG IV SCH (21:00)
[2017-12-03] MEDS: CODEINE 30MG/APAP 300MG TAB PO PRN (21:16)
[2017-12-03] MEDS: ROSUVASTATIN 10 MG TAB PO SCH (21:16)
[2017-12-03] MEDS: ALPRAZOLAM 0.25 MG TABLET PO PRN (21:17)
[2017-12-03] MEDS: CIPROFLOXACIN 400mg IV 400 MG/200 ML BAG IV SCH (22:10)
--- NOTE | 2017-12-04 02:11 | PN ---
The patient is afebrile today. She does not have any focal symptoms other than the pain in the surgi shabana site. I spoke to the family regarding her post discharge plan. Son does not feel comfortable in taking her home. He said he was not willing to take her home until Thursday. I discussed this with sb claudio psychosocial rehabilitation counselor. Meanwhile the patient will be continued on antibiotics pending the culture results . Her chemistry, CBC, as well as chest x-ray were normal, indicative of urinary tract infection. Her Leone is discontinued now. OBDULIA/CHAD Voice ID: [id number] Report ID: [id number]
[2017-12-04] MEDS: CLOPIDOGREL 75 MG TABLET PO SCH (09:24)
[2017-12-04] MEDS: CODEINE 30MG/APAP 300MG TAB PO PRN (09:25)
[2017-12-04] MEDS: ASPIRIN EC 81 MG TAB PO SCH (09:25)
[2017-12-04] MEDS: MEMANTINE HCL 10 MG TABLET PO SCH ×2 (09:25→21:40)
[2017-12-04] MEDS: CIPROFLOXACIN 400mg IV 400 MG/200 ML BAG IV SCH ×2 (09:28→21:40)
[2017-12-04] MEDS: ROSUVASTATIN 10 MG TAB PO SCH (21:40)
[2017-12-04] MEDS: ALPRAZOLAM 0.25 MG TABLET PO PRN (21:40)
[2017-12-05] MEDS: ACETAMINOPHEN 500 MG TAB PO PRN ×4 (00:49→21:45)
--- NOTE | 2017-12-05 02:49 | PN ---
The patient is doing okay. Her urine cultures are positive for gram-negative rods; however, this has not been identified completely. Pending that, she will be given Cipro. When culture reports are av ailable, she will be switched to oral antibiotic. OBDULIA/CHAD Voice ID: [id number] Report ID: [id number]
[2017-12-05] MEDS: ASPIRIN EC 81 MG TAB PO SCH (08:49)
[2017-12-05] MEDS: CIPROFLOXACIN 400mg IV 400 MG/200 ML BAG IV SCH (08:49)
[2017-12-05] MEDS: MEMANTINE HCL 10 MG TABLET PO SCH ×2 (08:49→21:44)
[2017-12-05] MEDS: CLOPIDOGREL 75 MG TABLET PO SCH (08:50)
--- NOTE | 2017-12-05 20:01 | PN ---
The patient is afebrile. Her urine cultures are positive for Klebsiella and Staph. Both are sensiti ve to Bactrim. She changed to oral antibiotic, taken off IV Cipro. The patient will be discharged t omorrow as per the request of her family. OBDULIA/CHAD Voice ID: [id number] Report ID: [id number]
[2017-12-05] MEDS: SMZ./TMP. 800/160 MG TABLET PO SCH (21:44)
[2017-12-05] MEDS: ROSUVASTATIN 10 MG TAB PO SCH (21:44)
[2017-12-06] MEDS: MEMANTINE HCL 10 MG TABLET PO SCH ×2 (09:12→20:06)
[2017-12-06] MEDS: SMZ./TMP. 800/160 MG TABLET PO SCH ×2 (09:12→20:06)
[2017-12-06] MEDS: ASPIRIN EC 81 MG TAB PO SCH (09:12)
[2017-12-06] MEDS: CLOPIDOGREL 75 MG TABLET PO SCH (09:12)
[2017-12-06] MEDS: ACETAMINOPHEN 500 MG TAB PO PRN (13:51)
[2017-12-06] MEDS: ROSUVASTATIN 10 MG TAB PO SCH (20:05)
[2017-12-06] MEDS: CODEINE 30MG/APAP 300MG TAB PO PRN (20:06)
--- NOTE | 2017-12-06 23:05 | PN ---
Subjective: The patient is doing well. She is afebrile. She does not have any urinary symptoms. T he patient's family wants more pain medicine. I told the family that with the codeine, she might get more confused; however, they insist on giving codeine. This will be administered as per family's re quest. I also explained to the family that she needs rehab; either they can take her home and have [facility] at home or the group home home. Family wants to take her to skilled nursin home. This was discussed with the nursing staff. OBDULIA/CHAD Voice ID: [id number] Report ID: [id number]
[2017-12-07] MEDS: ACETAMINOPHEN 500 MG TAB PO PRN ×2 (04:56→14:02)
[2017-12-07] MEDS: SMZ./TMP. 800/160 MG TABLET PO SCH ×2 (10:36→21:19)
[2017-12-07] MEDS: MEMANTINE HCL 10 MG TABLET PO SCH ×2 (10:36→21:19)
[2017-12-07] MEDS: CLOPIDOGREL 75 MG TABLET PO SCH (10:36)
[2017-12-07] MEDS: ASPIRIN EC 81 MG TAB PO SCH (10:36)
[2017-12-07] MEDS: CODEINE 30MG/APAP 300MG TAB PO PRN ×2 (11:41→18:03)
[2017-12-07] MEDS: ROSUVASTATIN 10 MG TAB PO SCH (21:18)
[2017-12-08] MEDS: BISACODYL E.C. 5 MG TAB PO PRN (08:30)
[2017-12-08] MEDS: SMZ./TMP. 800/160 MG TABLET PO SCH ×2 (08:30→21:36)
[2017-12-08] MEDS: CODEINE 30MG/APAP 300MG TAB PO PRN ×2 (08:31→15:20)
[2017-12-08] MEDS: ASPIRIN EC 81 MG TAB PO SCH (08:34)
[2017-12-08] MEDS: MEMANTINE HCL 10 MG TABLET PO SCH ×2 (08:34→21:36)
[2017-12-08] MEDS: CLOPIDOGREL 75 MG TABLET PO SCH (08:34)
[2017-12-08] MEDS: ACETAMINOPHEN 500 MG TAB PO PRN ×2 (10:43→21:41)
[2017-12-08] MEDS: ROSUVASTATIN 10 MG TAB PO SCH (21:36)
[2017-12-09] MEDS: SMZ./TMP. 800/160 MG TABLET PO SCH ×2 (08:48→20:42)
[2017-12-09] MEDS: CLOPIDOGREL 75 MG TABLET PO SCH (08:48)
[2017-12-09] MEDS: ASPIRIN EC 81 MG TAB PO SCH (08:48)
[2017-12-09] MEDS: MEMANTINE HCL 10 MG TABLET PO SCH ×2 (08:48→20:42)
[2017-12-09] MEDS: ENOXAPARIN 30 MG/0.3 ML SQ SCH (09:00)
[2017-12-09] MEDS: ACETAMINOPHEN 500 MG TAB PO PRN ×2 (11:18→19:10)
[2017-12-09] MEDS: ROSUVASTATIN 10 MG TAB PO SCH (20:42)
[2017-12-10] MEDS: ACETAMINOPHEN 500 MG TAB PO PRN ×3 (01:05→13:24)
--- NOTE | 2017-12-10 02:27 | PN ---
Patient is afebrile. She is sitting in the chair and eating. Her lungs are clear. Patient is ready for transfer to [facility] whenever it is arranged. OBDULIA/CHAD Voice ID: [id number] Report ID: [id number]
[2017-12-10] MEDS: ENOXAPARIN 30 MG/0.3 ML SQ SCH (10:00)
[2017-12-10] MEDS: ASPIRIN EC 81 MG TAB PO SCH (10:00)
[2017-12-10] MEDS: MEMANTINE HCL 10 MG TABLET PO SCH (10:00)
[2017-12-10] MEDS: CLOPIDOGREL 75 MG TABLET PO SCH (10:00)
[2017-12-10] MEDS: SMZ./TMP. 800/160 MG TABLET PO SCH (10:00)
[2017-12-10] MEDS ORDERED: ENSURE ENLIVE 237 ML CAN PO PRN (12:04)
[2017-12-10 16:20] VITALS: BP 139/47; TEMP 98.3
[2017-12-10 18:35] VITALS: O2SAT 100
[2017-12-10] MEDS ORDERED: JUVEN PACKET PO SCH (21:00)
== END 2017-12-10 17:14 | DRG 481 ==
LOC: ER 08:59 → ERHOLD 10:41 → 4TH 15:12
PROVIDERS: ADMIT Internal Medicine; ATTEND Internal Medicine
PROC: 0T9B70Z Drainage of Bladder with Drainage Device, Via Natural or Artificial Opening (ICD-10-PCS; 2017-11-25)
PROC: 0QH636Z Insertion of Intramedullary Internal Fixation Device into Right Upper Femur, Percutaneous Approach (ICD-10-PCS; principal; 2017-11-26 16:30)
DX: S72.001A Fracture of unspecified part of neck of right femur, initial encounter for closed fracture (principal); N39.0 Urinary tract infection, site not specified; E78.5 Hyperlipidemia, unspecified; I25.10 Atherosclerotic heart disease of native coronary artery without angina pectoris; G30.9 Alzheimer's disease, unspecified; F02.80 Dementia in other diseases classified elsewhere, unspecified severity, without behavioral disturbance, psychotic disturbance, mood disturbance, and anxiety; W19.XXXA Unspecified fall, initial encounter
CPT/HCPCS: 36415; 71045; 72170; 73530; 80048; 80053; 81015; 82962; 85014; 85018; 85025; 85049; 85384; 85610; 85730; 86850; 86900; 86901; 87040; 87077; 87086; 87088; 87186; 93005; 96374; 96375; 97163; 99285; J0744; J1650; J2175; J2250; J2270; J2405; J3010; J7030; P9016; P9045

== ENCOUNTER 2018-02-09 00:40 | Observation (INO) | payer OTHER ==
[2018-02-09] MEDS ORDERED: ASPIRIN 81 MG CHEWABLE TABLET ONE (01:14)
[2018-02-09 02:22] LABS: Absolute Lymphocytes (CBC) 1.4 K/uL (0.7-4.9); Absolute Monocytes 0.5 K/uL (0.1-1.3); Absolute Neutrophil 7.3 K/uL (1.8-8.0); Basophils % 0.3 % (0-1.3); Eosinophils % 0.7 % (0-4.4); Hematocrit 29.9 % (36.0-45.0); Lymphocytes % 14.8 % (15.3-44.8); MCH 30.3 pg (27.0-35.0); MCV 89.2 fL (80-100); MPV 9.9 fL (7.6-11.3); Monocytes % 5.4 % (3.3-12.3); RBC Red Blood Cell Count 3.35 M/uL (3.86-4.86)
[2018-02-09 02:29] LABS: Protime INR 1.01
[2018-02-09 02:41] LABS: ALT/SGPT 10 U/L (12-78); AST/SGOT 12 U/L (15-37); Albumin 3.5 g/dL (3.4-5.0); Alkaline Phosphatase 115 U/L (45-117); BUN Blood Urea Nitrogen 21 mg/dL (7-18); Bicarbonate 31 mmol/L (21-32); Bilirubin Direct 0.2 mg/dL (0-0.2); Bilirubin Total 0.4 mg/dL (0.2-1.0); CKMB Creatine Kinase MB < 1.0 ng/mL (0.3-3.6); Creatine Phosphokinase 18 U/L (26-192); Glucose Level 102 mg/dL (74-106); Magnesium 2.2 mg/dL (1.8-2.4); NT PRO-BNP 320 pg/mL (<450); Potassium 4.1 mmol/L (3.5-5.1); Protein, Total 6.9 g/dL (6.4-8.2); Sodium Level 141 mmol/L (136-145)
--- NOTE | 2018-02-09 04:47 | EDPHYS ---
Physician Documentation [facility] Name: Jazmyn Ennis Age: 87 yrs Sex: Female : 1930 Arrival Date: 02/09/2018 Time: 00:41 Bed 7 Private MD: Trae Casillas R ED Physician Rj Torres HPI: 02/09 01:09 This 87 yrs old Female presents to ER via Ambulatory with complaints of Chest ma2 Pain. 01:09 The patient or guardian reports chest pain that is located primarily in the substernal ma2 area, anterior chest wall. Onset: gradually, 2 day(s) ago. Associated signs and symptoms: Pertinent negatives: None. diaphoresis, lower extremity pain, lightheadedness, recent travel, shortness of breath. The chest pain is described as unable to assess. Duration: The patient or guardian reports multiple episodes. Severity of pain: At its worst the pain was moderate in the emergency department the pain is unchanged has improved. The patient has experienced a previous episode, last year had AR s/p cath and stent . Historical: - Allergies: 00:59 PENICILLINS; ak1 - Home Meds: 00:59 clopidogrel 75 mg Oral tab 1 tab once daily [Active]; memantine 10 mg Oral tab 1 tab 2 ak1 times per day [Active]; b12 - weekly [Active]; Iron CR Oral [Active]; - PMHx: 00:59 Alzheimers; High Cholesterol; CAD; ak1 - PSHx: 00:59 Heart stents; right femur fx sx; ak1 - Immunization history:: Adult Immunizations unknown. - Social history:: Smoking status: Patient/guardian denies using tobacco, Patient/guardian denies using alcohol, street drugs, The patient lives with family. - Ebola Screening: : No symptoms or risks identified at this time. - Family history:: not pertinent. ROS: 01:09 Cardiovascular: Positive for chest pain. ma2 01:09 All other systems are negative. 04:47 Constitutional: Negative for fever, chills, and weight loss. ma2 Exam: 01:09 Constitutional: This is a well developed, well nourished patient who is awake, alert, ma2 and in no acute distress. Head/Face: Normocephalic, atraumatic. Chest/axilla: Normal chest wall appearance and motion. Nontender with no deformity. No lesions are appreciated. Cardiovascular: Regular rate and rhythm with a normal S1 and S2. No gallops, murmurs, or rubs. Normal PMI, no JVD. No pulse deficits. Respiratory: Lungs have equal breath sounds bilaterally, clear to auscultation and percussion. No rales, rhonchi or wheezes noted. No increased work of breathing, no retractions or nasal flaring. Vital Signs: 00:55 BP 146 / 62; Pulse 72; Resp 16; Temp 99.0; Pulse Ox 100% on R/A; Weight 56.7 kg (R); ak1 Height 5 ft. 0 in. (152.40 cm) (R); Pain 5/10; 01:48 BP 130 / 54; Pulse 65; Resp 16; Pulse Ox 99% on R/A; mt 02:40 BP 100 / 65; Pulse 65; Resp 14; Temp 99; Pulse Ox 97% on R/A; ak1 03:31 BP 102 / 75; Pulse 66; Resp 12; Temp 99; Pulse Ox 97% on R/A; ak1 03:58 BP 99 / 60; Pulse 67; Resp 14; Pulse Ox 98% on R/A; mt 04:44 BP 99 / 82; Pulse 66; Resp 18; Temp 98.2; Pulse Ox 100% on R/A; Pain 0/10; ak1 00:55 Body Mass Index 24.41 (56.70 kg, 152.40 cm) ak1 MDM: 00:47 Patient medically screened. ma2 01:09 Differential diagnosis: abnormal EKG, acute myocardial infarction, acute pericarditis, ma2 anxiety, coronary artery disease chest wall pain, gastroesophageal reflux disease (GERD), unlikely PE as she is ambulating now more after the pelvis frx and able to move with physical therapy, she does not have LE swelling. HEART Score: History: Moderately Suspicious (1), ECG: Non specific repolarization disturbance / LBTB / PM (1), Age: > or = 65 years (2), Risk Factors: > or = 3 Risk factors for atherosclerotic disease (2), Troponin:. The patient was given aspirin in the Emergency Department. 04:46 The patient's pulmonary embolism risk score was calculated as follows: Total Score: ma2 greater than 6 points. This patient was found to be at low risk for a pulmonary embolism by using the Well's assessment criteria. YEISON Risk Score: 1 - patient's age is greater or equal to 65 years, 1 - Three or more CAD risk factors, 1- Known CAD, TOTAL SCORE = 6. Data reviewed: vital signs, nurses notes, diagnostic data from outside facility, lab test result(s), radiologic studies, CT scan. Data interpreted: acidizer water well:. Counseling: I had a detailed discussion with the patient and/or guardian regarding: the historical points, exam findings, and any diagnostic results supporting the discharge/admit diagnosis, the presence of at least one elevated blood pressure reading (>120/80) during this emergency department visit, radiology results, the need for further work-up and treatment in the hospital. Response to treatment: the patient's symptoms have mildly improved after treatment. 02/09 01:08 Order name: Basic Metabolic Panel; Complete Time: 02:49 [facility] 02/09 01:08 Order name: CBC with Diff; Complete Time: 02:31 02/09 01:08 Order name: Ckmb; Complete Time: 02:49 02/09 01:08 Order name: CPK; Complete Time: 02:49 nh02/09 01:08 Order name: LFT's; Complete Time: 02:49 02/09 01:08 Order name: Magnesium; Complete Time: 02:49 02/09 01:08 Order name: NT PRO-BNP; Complete Time: 02:49 nh02/09 01:08 Order name: PT-INR; Complete Time: 02:34 nh02/09 01:08 Order name: Ptt, Activated; Complete Time: 02:34 nh02/09 01:08 Order name: Troponin (emerg Dept Use Only); Complete Time: 02:49 [facility] 02/09 02:22 Order name: D-Dimer; Complete Time: 02:34 [facility] 02/09 04:58 Order name: Basic Metabolic Panel [facility] 02/09 04:58 Order name: Basic Metabolic Panel [facility] 02/09 01:08 Order name: XRAY Chest (1 view) [facility] 02/09 01:08 Order name: EKG; Complete Time: 01:08 [facility] 02/09 01:08 Order name: Cardiac monitoring; Complete Time: 01:09 [facility] 02/09 01:08 Order name: EKG - Nurse/Tech; Complete Time: 01: nh2 02/09 02:35 Order name: CT Chest For PE Angio nh2 02/09 04:58 Order name: Consistent Carb (ADA) [address] ED[facility] 02/09 04:58 Order name: EKG Electrocardiogram EDMS 02/09 04:58 Order name: EKG Electrocardiogram EDMS 02/09 04:58 Order name: EKG Electrocardiogram EDMS 02/09 04:58 Order name: EKG Electrocardiogram EDMS 02/09 04:58 Order name: CBC with Automated Diff EDMS 02/09 04:58 Order name: CBC with Automated Diff EDMS 02/09 04:58 Order name: Troponin I [facility] 02/09 04:58 Order name: Troponin I [facility] 02/09 04:58 Order name: Troponin I [facility] 02/09 01:08 Order name: IV Saline Lock; Complete Time: 01: [facility] 02/09 01:08 Order name: Labs collected and sent; Complete Time: : [facility] 02/09 01:08 Order name: O2 Per Protocol; Complete Time: : [facility] 02/09 01:08 Order name: O2 Sat Monitoring; Complete Time: 01: nh2 Administered Medications: 01:15 Drug: Aspirin Chewable Tablet 324 mg Route: PO; ak1 04:50 Follow up: Response: No adverse reaction ak1 Disposition: 02/09/18 04:47 Hospitalization ordered by Trae Casillas for Observation. Preliminary diagnosis is Chest pain, unspecified. - Bed requested for Telemetry/MedSurg (observation). - Status is Observation. ak1 - Condition is Stable. - Problem is new. - Symptoms are unchanged. UTI on Admission? No Signatures: Dispatcher [employer] EDGA Ute Jacob 2 Olga Dwyer RN RN kl Krenek, Amber, RN RN ak1 Rj Torres MD MD ma2 Corrections: (The following items were deleted from the chart) 02:22 01:12 D-DIMER+COAG.LAB.BRZ ordered. [facility] EDGA 05:12 04:47 Hospitalization Ordered by Rj Pepper MD for Observation. Preliminary diagnosis is Chest pain, unspecified. Bed requested for Telemetry/MedSurg (observation). Status is Observation. Condition is Stable. Problem is new. Symptoms are unchanged. UTI on Admission? No. ma2 05:17 05:12 02/09/2018 04:47 Hospitalization Ordered by Rj Pepper MD for Observation. kl Preliminary diagnosis is Chest pain, unspecified. Bed requested for Telemetry/MedSurg (observation). Status is Observation. Condition is Stable. Problem is new. Symptoms are unchanged. UTI on Admission? No. kl 05:22 05:17 02/09/2018 04:47 Hospitalization Ordered by Rj Pepper MD for Observation. rg2 Preliminary diagnosis is Chest pain, unspecified. Bed requested for Telemetry/MedSurg (observation). Status is Observation. Condition is Stable. Problem is new. Symptoms are unchanged. UTI on Admission? No. kl 06:10 05:22 02/09/2018 04:47 Hospitalization Ordered by Trae Casillas MD for Observation. ak1 Preliminary diagnosis is Chest pain, unspecified. Bed requested for Telemetry/MedSurg (observation). Status is Observation. Condition is Stable. Problem is new. Symptoms are unchanged. UTI on Admission? No. rg2
--- NOTE | 2018-02-09 04:47 | ER ---
Nurse's Notes [facility] Name: Jazmyn Ennis Age: 87 yrs Sex: Female : 1930 Arrival Date: 02/09/2018 Time: 00:41 Bed 7 Private MD: Trae Casillas R Diagnosis: Chest pain, unspecified Presentation: 02/09 00:56 Presenting complaint: Child states: pt c/o left chest wall pain tonight. pt due for ak1 right breast biopsy this morning with Dr. Arevalo. pt stopped taking her Plavix for procedure. Transition of care: patient was not received from another setting of care. Onset of symptoms was February 09, 2018. Risk Assessment: Do you want to hurt yourself or someone else? Patient reports no desire to harm self or others. Initial Sepsis Screen: Does the patient meet any 2 criteria? No. Patient's initial sepsis screen is negative. Does the patient have a suspected source of infection? No. Patient's initial sepsis screen is negative. Care prior to arrival: None. 00:56 Method Of Arrival: Ambulatory ak1 00:56 Acuity: BUFFY 3 ak1 Triage Assessment: 00:59 General: Appears in no apparent distress. Behavior is calm, cooperative. Pain: ak1 Complains of pain in left clavicle, anterior aspect of left upper chest and left breast. EENT: No deficits noted. Neuro: No deficits noted. Cardiovascular: Parent/caregiver reports patient has had chest pain. Respiratory: No deficits noted. GI: No signs and/or symptoms were reported involving the gastrointestinal system. : No signs and/or symptoms were reported regarding the genitourinary system. Derm: No signs and/or symptoms reported regarding the dermatologic system. Musculoskeletal: No signs and/or symptoms reported regarding the musculoskeletal system. Historical: - Allergies: 00:59 PENICILLINS; ak1 - Home Meds: 00:59 clopidogrel 75 mg Oral tab 1 tab once daily [Active]; memantine 10 mg Oral tab 1 tab 2 ak1 times per day [Active]; b12 - weekly [Active]; Iron CR Oral [Active]; - PMHx: 00:59 Alzheimers; High Cholesterol; CAD; ak1 - PSHx: 00:59 Heart stents; right femur fx sx; ak1 - Immunization history:: Adult Immunizations unknown. - Social history:: Smoking status: Patient/guardian denies using tobacco, Patient/guardian denies using alcohol, street drugs, The patient lives with family. - Ebola Screening: : No symptoms or risks identified at this time. - Family history:: not pertinent. Screenin:15 Abuse screen: Denies threats or abuse. Denies injuries from another. Nutritional ak1 screening: No deficits noted. Tuberculosis screening: No symptoms or risk factors identified. Fall Risk None identified. Assessment: 01:16 Pain: Pain does not radiate. Pain began 1 hour ago. ak1 01:58 Reassessment: Patient appears in no apparent distress at this time. No changes from ak1 previously documented assessment. Patient is alert, oriented x 3, equal unlabored respirations, skin warm/dry/pink. pain reproducible with palpation to left chest wall. 03:02 Reassessment: pt in CT. ak1 03:30 Reassessment: Patient appears in no apparent distress at this time. Patient is alert, ak1 oriented x 3, equal unlabored respirations, skin warm/dry/pink. Patient states symptoms have improved. 04:42 Reassessment: Patient appears in no apparent distress at this time. Patient and/or ak1 family updated on plan of care and expected duration. Pain level reassessed. Patient is alert, oriented x 3, equal unlabored respirations, skin warm/dry/pink. ERP notified of pending biopsy at [address] Arevalo this morning so that Dr. Valdivia will be informed as well. Patient states symptoms have improved. Vital Signs: 00:55 BP 146 / 62; Pulse 72; Resp 16; Temp 99.0; Pulse Ox 100% on R/A; Weight 56.7 kg (R); ak1 Height 5 ft. 0 in. (152.40 cm) (R); Pain 5/10; 01:48 BP 130 / 54; Pulse 65; Resp 16; Pulse Ox 99% on R/A; mt 02:40 BP 100 / 65; Pulse 65; Resp 14; Temp 99; Pulse Ox 97% on R/A; ak1 03:31 BP 102 / 75; Pulse 66; Resp 12; Temp 99; Pulse Ox 97% on R/A; ak1 03:58 BP 99 / 60; Pulse 67; Resp 14; Pulse Ox 98% on R/A; mt 04:44 BP 99 / 82; Pulse 66; Resp 18; Temp 98.2; Pulse Ox 100% on R/A; Pain 0/10; ak1 00:55 Body Mass Index 24.41 (56.70 kg, 152.40 cm) ak1 ED Course: 00:41 Patient arrived in ED. ds1 00:41 Trae Casillas MD is Private Physician. ds1 00:47 Rj Torres MD is Attending Physician. ma2 00:47 Steph Joseph, RN is Primary Nurse. ak1 00:55 Arm band placed on Patient placed in an exam room, on a stretcher, on pulse oximetry, ak1 Patient notified of wait time. 00:57 Triage completed. ak1 01:01 Inserted saline lock: 22 gauge in right antecubital area, using aseptic technique. mt Blood collected. 01:15 Patient has correct armband on for positive identification. Placed in gown. Bed in low ak1 position. Call light in reach. Side rails up X 1. Side rails up X2. Adult w/ patient. conveyor monitor on. Pulse ox on. NIBP on. 01:15 Patient maintains SpO2 saturation greater than 95% on room air. ak1 01:33 X-ray completed. Portable x-ray completed in exam room. Patient tolerated procedure kw well. 01:34 XRAY Chest (1 view) In Process Unspecified. EDMS 02:36 Notified ED physician of a critical lab result(s). D-Dimer 1645. ak1 03:[address] via stretcher. kw1 03:25 CT Chest For PE Angio In Process Unspecified. EDMS 04:32 No provider procedures requiring assistance completed. ak1 04:41 Patient admitted, IV remains in place. ak1 04:47 Trae Casillas MD is Hospitalizing Provider. ma2 04:47 Hospitalizing Provider role handed off by Trae Casillas MD ma2 04:47 Rj Pepper MD is Hospitalizing Provider. ma2 05:21 Hospitalizing Provider role handed off by Rj Pepper MD rg2 05:21 Trae Casillas MD is Hospitalizing Provider. rg2 Administered Medications: 01:15 Drug: Aspirin Chewable Tablet 324 mg Route: PO; ak1 04:50 Follow up: Response: No adverse reaction ak1 Outcome: 04:43 Condition: stable ak1 04:43 Instructed on the need for admit. 04:47 Decision to Hospitalize by Provider. ma2 06:09 Admitted to Med/surg accompanied by nurse, accompanied by tech, family with patient, mary via wheelchair, with chart, Report called to Gladys Asif LVN 06:10 Patient left the ED. ak1 Signatures: Dispatcher [employer] EDMS Ute Jacob 2 Randi Louise1 Alyce Santiago Amber, RN RN ak1 Sarah Kerns mt, Kimberly kw1 Rj Torres MD MD ma2
[2018-02-09] MEDS ORDERED: ACETAMINOPHEN 500 MG TAB PO PRN (04:56)
[2018-02-09] MEDS ORDERED: NITROGLYCERIN 1 GM PKT TD SCH (06:00)
--- NOTE | 2018-02-09 06:31 | EKG ---
Test Date: 2018-02-09 Test Time: 00:51:24 Engine Manager: ROBERT MEASUREMENT RESULTS: Intervals: Rate: 74 WA: 164 QRSD: 76 QT: 368 QTc: 408 [place]: P: 84 WA: 164 QRS: 62 T: 80 INTERPRETIVE STATEMENTS: Normal sinus rhythm Normal ECG Compared to ECG 11/25/2017 10:45:28 Sinus bradycardia no longer present Electronically Signed On 02-09-18 06:30:55 CDT by Ravinder Aaron
[2018-02-09 06:32] VITALS: O2SAT 95
--- NOTE | 2018-02-09 08:33 | RAD REPORT ---
EXAM DESCRIPTION: RAD - Chest Single View - 02/09/2018 1:36 am CLINICAL HISTORY: CHEST PAIN Chest pain. COMPARISON: Chest Single View dated 12/02/2017; Chest Single View dated 11/25/2017; Chest Pa And Lat (2 Views) dated 10/01/2017; Chest Pa And Lat (2 Views) dated 07/14/2017; Chest For Pe Angio dated 8 FINDINGS: Portable technique limits examination quality. The lungs are grossly clear. The heart is normal in size. No displaced fractures.Aortic atheroscleros is noted. IMPRESSION: No acute intrathoracic process suspected.
--- NOTE | 2018-02-09 08:42 | RAD REPORT ---
EXAM DESCRIPTION: CT - Chest For Pe Angio - 02/09/2018 5:47 am CLINICAL HISTORY: Chest pain. CHEST PAIN COMPARISON: No comparisons TECHNIQUE: CT angiogram of the pulmonary arteries was performed with MIP. All CT scans are performed using dose optimization technique as appropriate and may include automated exposure control or mA/KV adjustment according to patient size. FINDINGS: No evidence of pulmonary thromboembolism. No acute aortic finding demonstrated. Heavy atherosclerosis of the aorta. The lungs are clear. No significant pericardial or pleural fluid. No concerning bony finding. Several liver cysts are suspected. IMPRESSION: No evidence of pulmonary thromboembolism. No acute lung findings.
[2018-02-09] MEDS ORDERED: ASPIRIN EC 81 MG TAB PO SCH (09:00)
[2018-02-09 09:45] VITALS: BMI 20.9
[2018-02-09 17:28] VITALS: BP 127/60; TEMP 97.9
--- NOTE | 2018-02-10 05:43 | HP ---
Date of Admission: 02/08/2018 Chief Complaint: Chest pain. History Of Present Illness: An 87-year-old female was brought to the emergency room because of left- sided chest pain. The patient had evaluation done. There was no evidence of myocardial injury or el evation of troponin. The patient is admitted for observation. There is no history of fever, chills, or rigors. Past Medical History: Positive for hyperlipidemia, coronary artery disease, Alzheimer disease, and r ecently diagnosed breast mass. Past Surgical History: Positive for coronary angioplasty, fractured right femur. Home Medicines: Plavix, memantine. Allergies: PENICILLINS. Review of Systems: No fever, chills, rigors. Physical Examination: General: Revealed an 87-year-old confused female. Vital Signs: Normal. HEENT: Negative. Neck: Supple. JVD negative. Chest: Clear. Heart: Regular. Abdomen: Soft, nontender. Extremities: No edema. Neurological: The patient is confused due to Alzheimer disease. No focal deficit. Assessment: 1.Chest pain. 2.Known coronary artery disease status post coronary angioplasty. 3.Hyperlipidemia. 4.Recently diagnosed breast mass. Plan: The patient has been seen by Cardiology Service, and she is cleared for discharge as Dr. Saundra singleton does not think she has cardiac pain. She will be discharged, and she will have outpatient biopsy of the breast mass as planned. OBDULIA/CHAD Voice ID: [id number]
--- NOTE | 2018-02-10 12:34 | CON ---
Date of Consultation: 02/09/[address] Chacon's service on 02/09/2018. I saw the patient on 02/09/2018. Reason For Consultation: Chest pain. History Of Present Illness: Ms. Ennis is an 87-year-old [place] woman. She has a history of dementia, coronary artery disease, status post left main stent in the past, has a history of dyslipid emia. On February 2017, her heart catheterization was done by Dr. Aaron and showed a patent left main stent and no other significant coronary artery disease. She has a normal EKG. Chest x-ray was norm al. She had an elevated D-dimer at 645. Her CT angiogram was negative. Ms. Ennis described a pleur itic type of chest pain underneath the left axilla, sharp, stabbing. No nausea, vomiting, diaphoresi s, PND, orthopnea, pedal edema, palpitations, or syncope. Her troponin is negative. Her CPKs and MB s are negative. Past Medical History: As stated above. Allergies: SHE IS ALLERGIC TO PENICILLIN. Review of Systems: Negative. Social History: Negative. Family History: Noncontributory. Medications: At home include Plavix Namenda. Physical Examination: VITAL SIGNS: Stable. She was afebrile. HEENT: Negative. NECK: Supple. No bruit. CHEST: Clear to auscultation and percussion. CARDIAC EXAM: Revealed a regular rhythm and rate without any murmurs, gallops, or rubs. ABDOMEN: Benign. EXTREMITIES: Revealed no clubbing, cyanosis, or edema. Diagnostic Data: As stated earlier. Impression And Plan: Pleuritic chest pain. Heart catheterization less than a year ago shows a paten t left main stent and I do not see the need of doing another cardiac workup on her. She is 87. She has significant dementia. Her D-dimer is elevated with negative CT angiogram. Her chest x-ray and E KG are unremarkable. She may need her blood pressure slightly better controlled whenever it is okay with Dr. Chacon and we will see her in the office as an outpatient. WINIFRED/CHAD Voice ID: [id number] Report ID: [id number]
== END 2018-02-09 17:25 | disposition home or self-care (01) ==
LOC: ER 00:40 → ERHOLD 05:20 → 2ND 05:29
PROVIDERS: ADMIT Internal Medicine; ATTEND Internal Medicine
DX: R07.9 Chest pain, unspecified (principal); E78.5 Hyperlipidemia, unspecified; I25.10 Atherosclerotic heart disease of native coronary artery without angina pectoris; G30.9 Alzheimer's disease, unspecified; F02.80 Dementia in other diseases classified elsewhere, unspecified severity, without behavioral disturbance, psychotic disturbance, mood disturbance, and anxiety; Z88.0 Allergy status to penicillin; Z98.61 Coronary angioplasty status
CPT/HCPCS: 36415; 71045; 71275; 80048; 80076; 82550; 82553; 83735; 83880; 84484 ×3; 85025; 85379; 85610; 85730; 93005; G0378 ×2; Q9967; 99285

== ENCOUNTER → 2018-02-17 | Day surgery (SDC) | payer OTHER ==
--- NOTE | 2018-02-17 11:27 | RAD REPORT ---
EXAM DESCRIPTION: Ultrasound-guided vacuum assisted right breast core biopsy CLINICAL HISTORY: Breast mass N63.41 COMPARISON: Follow Up Breast Axilla Comp dated 02/05/2018; 3D DIAG UNI F/U dated 02/05/2018; 3D SCR MA M BILAT W/CAD dated 02/02/2018 FINDINGS: Informed consent was obtained and time-out was performed. The patient's right breast was prepped and draped in the usual sterile fashion. 1% lidocaine was used for local anesthetic purposes. Utilizing aseptic technique and ultrasound guidance, vacuum assisted core biopsy device was used to o btain 2 core specimens through the mass of interest. A post biopsy clip was then placed. All collected material was sent for cytology. Patient tolerated procedure well. IMPRESSION: Successful ultrasound guided vacuum assisted right breast mass biopsy.
== END ==
LOC: DS 09:39
PROVIDERS: ATTEND Surgery
PROC: 0HBT3ZX Excision of Right Breast, Percutaneous Approach, Diagnostic (ICD-10-PCS; principal; 2018-02-17)
DX: C50.011 Malignant neoplasm of nipple and areola, right female breast (principal); Z17.0 Estrogen receptor positive status [ER+]
CPT/HCPCS: 19083; 88305

== ENCOUNTER 2018-02-26 20:07 | Emergency (ER) | payer OTHER ==
--- NOTE | 2018-02-26 20:48 | RAD REPORT ---
EXAM DESCRIPTION: CT - Head Brain Wo Cont - 02/26/2018 8:40 pm CLINICAL HISTORY: Dizziness, weakness, syncope COMPARISON: February 2016 TECHNIQUE: Axial 5 mm thick images of the head were obtained without IV contrast. All CT scans are performed using dose optimization technique as appropriate and may include automated exposure control or mA/KV adjustment according to patient size. FINDINGS: No intracranial hemorrhage, mass, edema or shift of mid-line structures. No acute infarcti on changes seen. Moderate atrophy and chronic ischemic change. Arterial and physiologic calcification s are present. Ventricles are in proportion to volume loss. Mastoid air cells and visualized portions of the paranasal sinuses are clear. No acute bony findings. IMPRESSION: Moderate severity atrophy and chronic ischemic change similar to comparison. No acute intracranial finding seen.
[2018-02-26] MEDS ORDERED: NA CHLORIDE 0.9% 500 ML ONE (21:11)
[2018-02-26 21:21] LABS: Absolute Lymphocytes (CBC) 1.3 K/uL (0.7-4.9); Absolute Monocytes 0.3 K/uL (0.1-1.3); Absolute Neutrophil 2.9 K/uL (1.8-8.0); Basophils % 0.6 % (0-1.3); Eosinophils % 1.6 % (0-4.4); Hematocrit 31.2 % (36.0-45.0); Lymphocytes % 27.5 % (15.3-44.8); MCH 30.2 pg (27.0-35.0); MCV 89.4 fL (80-100); MPV 8.9 fL (7.6-11.3); Monocytes % 6.6 % (3.3-12.3); RBC Red Blood Cell Count 3.49 M/uL (3.86-4.86)
[2018-02-26 21:27] LABS: BUN Blood Urea Nitrogen 14 mg/dL (7-18); Bicarbonate 30 mmol/L (21-32); Glucose Level 79 mg/dL (74-106); Magnesium 2.4 mg/dL (1.8-2.4); Potassium 4.1 mmol/L (3.5-5.1); Sodium Level 142 mmol/L (136-145)
[2018-02-26] MEDS ORDERED: NA CHLORIDE 0.9% 250 ML ONE (22:25)
[2018-02-26 22:46] LABS: Urine Blood NEGATIVE (NEG); Urine Glucose NEGATIVE (NEG); Urine Protein NEGATIVE (NEG); Urine pH 5.5 (5.0-7.0)
[2018-02-26 23:11] LABS: Urine Bacteria <20 /HPF (<20); Urine Culture Reflex Order NOT NEEDED; Urine RBC <5 /HPF (NONE SEEN)
--- NOTE | 2018-02-27 00:11 | EDPHYS ---
Physician Documentation [facility] Name: Jazmyn Ennis Age: 87 yrs Sex: Female : 1930 Arrival Date: 02/26/2018 Time: 20:08 Bed 8 Private MD: Trae Casillas R ED Physician Jose Enrique Amos HPI: 02/26 20:29 This 87 yrs old Female presents to ER via Unassigned with complaints of rn Dizziness. 20:29 The patient presents with dizziness, feeling faint, generalized weakness. rn 20:30 Onset: The symptoms/episode began/occurred this morning. Context: occurred at home, rn occurred while the patient was doing physical therapy. Modifying factors: The symptoms are alleviated by lying down, the symptoms are aggravated by standing up, changing position. Severity of symptoms: At their worst the symptoms were moderate in the emergency department the symptoms are unchanged. The patient has experienced a previous episode. Reports during physical therapy today got lightheaded and fell back when standing, + dizziness when standing, no dizziness or vomiting when turning head or sitting/laying, no abd pain/vomiting/diarrhea. Daughter feels like she is dehydrated. Denies chest pain/sob. . Historical: - Allergies: 20:41 PENICILLINS; lp1 - Home Meds: 20:41 clopidogrel 75 mg oral tab 1 tab once daily [Active]; memantine 10 mg Oral tab 1 tab 2 lp1 times per day [Active]; rosuvastatin 5 mg oral tab 1 tab once daily [Active]; - PMHx: 20:41 Alzheimers; CAD; High Cholesterol; Dementia; lp1 - PSHx: 20:46 Heart stents; R femur fx; lp1 - Immunization history:: Adult Immunizations up to date. - Social history:: Smoking status: Patient/guardian denies using tobacco. - Family history:: not pertinent. - Ebola Screening: : No symptoms or risks identified at this time. - Hospitalizations: : No recent hospitalization is reported. ROS: 20:34 Constitutional: Negative for fever, chills, and weight loss, Eyes: Negative for injury, rn pain, redness, and discharge, Neck: Negative for injury, pain, and swelling, Cardiovascular: Negative for chest pain, palpitations, and edema, Respiratory: Negative for shortness of breath, cough, wheezing, and pleuritic chest pain, Abdomen/GI: Negative for abdominal pain, nausea, vomiting, diarrhea, and constipation, MS/Extremity: Negative for injury and deformity, Skin: Negative for injury, rash, and discoloration, Neuro: Negative for headache,numbness, tingling, and seizure, + generalized weakness and dizziness Exam: 20:34 Constitutional: This is a well developed, well nourished patient who is awake, alert, rn and in no acute distress. Head/Face: Normocephalic, atraumatic. Eyes: Pupils equal round and reactive to light, extra-ocular motions intact. Lids and lashes normal. Conjunctiva and sclera are non-icteric and not injected. Cornea within normal limits. Periorbital areas with no swelling, redness, or edema. ENT: dry MM Cardiovascular: Regular rate and rhythm with a normal S1 and S2. No gallops, murmurs, or rubs. Normal PMI, no JVD. No pulse deficits. Respiratory: Lungs have equal breath sounds bilaterally, clear to auscultation and percussion. No rales, rhonchi or wheezes noted. No increased work of breathing, no retractions or nasal flaring. Abdomen/GI: Soft, non-tender, with normal bowel sounds. No distension or tympany. No guarding or rebound. No evidence of tenderness throughout. Skin: warm, no cellulitis, + skin tenting MS/ Extremity: Pulses equal, no cyanosis. Neurovascular intact. Full, normal range of motion RUE/LLE/LUE, mild painful ROM RLE (previous femur fracture and at basleine). Equal circumference. Neuro: Awake and alert, GCS 15, oriented to person, place, time, and situation. Cranial nerves II-XII grossly intact. Motor strength 5/5 in all extremities. Sensory grossly intact. Cerebellar exam normal. No vertigo or dizziness with head turning 02/27 00:07 ECG was reviewed by the Attending Physician. rn Vital Signs: 02/26 20:25 BP 166 / 58 Supine; Pulse 64; Resp 18; Temp 99.1(O); Pulse Ox 99% on R/A; Weight 53.52 lp1 kg; Height 5 ft. 0 in. (152.40 cm); Pain 0/10; 20:28 BP 189 / 58 Sitting; Pulse 68; lp1 20:31 BP 161 / 71 Standing; Pulse 76; lp1 21:19 BP 172 / 85; Pulse 59; Resp 12 S; Pulse Ox 100% on R/A; jd3 22:37 BP 153 / 47; Pulse 59; Resp 13 S; Pulse Ox 99% on R/A; jd3 23:44 BP 172 / 60; Pulse 61; Resp 14 S; Pulse Ox 100% on R/A; jd3 20:25 Body Mass Index 23.04 (53.52 kg, 152.40 cm) lp1 20:28 Patient states dizziness when transitioning from lying to sitting position lp1 20:31 Denies any dizziness when standing lp1 MDM: 20:11 Patient medically screened. rn 02/27 00:07 Differential diagnosis: generalized weakness, idiopathic dizziness, vertigo, viral rn syndrome. Data reviewed: vital signs, nurses notes, lab test result(s), EKG, radiologic studies, CT scan, plain films, and as a result, I will discharge patient. Counseling: I had a detailed discussion with the patient and/or guardian regarding: the historical points, exam findings, and any diagnostic results supporting the discharge/admit diagnosis, lab results, radiology results, the need for outpatient follow up, to return to the emergency department if symptoms worsen or persist or if there are any questions or concerns that arise at home. 00:07 Response to treatment: the patient's symptoms have mildly improved after treatment. rn Special discussion: I discussed with the patient/guardian in detail that at this point there is no indication for admission to the hospital. It is understood, however, that if the symptoms persist or worsen the patient needs to return immediately for re-evaluation. ED course: CT head without acute findings, CXR clear, + low grade fever and cough, has been having "sinus issues" recently as well, may be beginning of viral infection for this patient. Improved a little with fluids, normal neuro exam, lightheaded when standing, no vertigo or ataxia. Will dc home with hydration and return precautions as well as fever control.. 02/26 20:25 Order name: Urine Microscopic Only; Complete Time: 00:07 rn 02/26 20:25 Order name: Basic Metabolic Panel; Complete Time: :43 rn 02/26 20:25 Order name: CBC with Diff; Complete Time: : rn 02/26 20:25 Order name: Magnesium; Complete Time: :43 rn 02/26 20:25 Order name: Troponin (emerg Dept Use Only); Complete Time: 21:43 rn 02/26 22:41 Order name: Urine Dipstick--Ancillary (enter results); Complete Time: 22:51 mw2 02/26 20:25 Order name: CT Head Brain wo Cont; Complete Time: 20:49 rn 02/26 20:25 Order name: EKG; Complete Time: 20:25 rn 02/26 20:25 Order name: Cardiac monitoring; Complete Time: 20:47 rn 02/26 22:56 Order name: Strep jd3 02/26 23:01 Order name: XRAY Chest (1 view) rn 02/26 23:54 Order name: Throat Culture EDMS 02/26 20:25 Order name: EKG - Nurse/Tech; Complete Time: 20:48 rn 02/26 20:25 Order name: IV Saline Lock; Complete Time: 21:05 rn 02/26 20:25 Order name: Labs collected and sent; Complete Time: 21:05 rn 02/26 20:25 Order name: NPO; Complete Time: 20:26 rn 02/26 20:25 Order name: O2 Per Protocol; Complete Time: 20:26 rn 02/26 20:25 Order name: O2 Sat Monitoring; Complete Time: 20:26 rn 02/26 20:25 Order name: Urine Dipstick-Ancillary (obtain specimen); Complete Time: 22:48 rn EC:07 Rate is 59 beats/min. Rhythm is regular. QRS Presto is Normal. MI interval is normal. QRS rn interval is normal. QT interval is normal. No Q waves. T waves are Normal. No ST changes noted. Clinical impression: Sinus bradycardia. Interpreted by me. Administered Medications: 02/26 21:09 Drug: NS 0.9% 500 ml Route: IV; Rate: bolus; Site: right antecubital; lp1 22:36 Follow up: Response: No adverse reaction; IV Status: Completed infusion; IV Intake: jd3 500ml 22:36 Drug: NS 0.9% 250 ml Route: IV; Rate: bolus; Site: right antecubital; jd3 23:22 Follow up: Response: No adverse reaction; IV Status: Completed infusion; IV Intake: jd3 250ml Disposition: 02/27/18 00:10 Discharged to Home. Impression: Weakness, Dizziness and giddiness. - Condition is Stable. - Discharge Instructions: Dizziness, Near-Syncope, Weakness. - Medication Reconciliation Form, Thank You Letter, Antibiotic Education, Prescription Opioid Use form. - Follow up: Trae Casillas MD; When: As needed; Reason: Recheck today's complaints, Re-evaluation by your physician. - Problem is new. - Symptoms have improved. Signatures: Dispatcher [employer] EDMS Jose Enrique Amos MD MD rn Candice West RN RN lp1 Carlton Traore RN RN jd3 Corrections: (The following items were deleted from the chart) 21:04 20:48 Straight Cath ordered. jd3 jd3 02/27 00:29 00:10 02/27/2018 00:10 Discharged to Home. Impression: Weakness; Dizziness and jd3 giddiness. Condition is Stable. Forms are Medication Reconciliation Form, Thank You Letter, Antibiotic Education, Prescription Opioid Use. Follow up: Trae Casillas; When: As needed; Reason: Recheck today's complaints, Re-evaluation by your physician. Problem is new. Symptoms have improved. rn
--- NOTE | 2018-02-27 00:11 | ER ---
Nurse's Notes [facility] Name: Jazmyn Ennis Age: 87 yrs Sex: Female : 1930 Arrival Date: 02/26/2018 Time: 20:08 Bed 8 Private MD: Trae Casillas R Diagnosis: Weakness;Dizziness and giddiness Presentation: 02/26 20:35 Presenting complaint: Child states: "She became dizzy today during Physical Therapy lp1 around 2:30"; States patient has continued to feel dizzy during movement; Denies any pain. Transition of care: patient was not received from another setting of care. Onset of symptoms was February 26, 2018 at 14:30. Risk Assessment: Do you want to hurt yourself or someone else? Patient reports no desire to harm self or others. Initial Sepsis Screen: Does the patient meet any 2 criteria? No. Patient's initial sepsis screen is negative. Does the patient have a suspected source of infection? No. Patient's initial sepsis screen is negative. Care prior to arrival: None. 20:35 Method Of Arrival: Wheelchair lp1 20:35 Acuity: BUFFY 3 lp1 Historical: - Allergies: 20:41 PENICILLINS; lp1 - Home Meds: 20:41 clopidogrel 75 mg oral tab 1 tab once daily [Active]; memantine 10 mg Oral tab 1 tab 2 lp1 times per day [Active]; rosuvastatin 5 mg oral tab 1 tab once daily [Active]; - PMHx: 20:41 Alzheimers; CAD; High Cholesterol; Dementia; lp1 - PSHx: 20:46 Heart stents; R femur fx; lp1 - Immunization history:: Adult Immunizations up to date. - Social history:: Smoking status: Patient/guardian denies using tobacco. - Family history:: not pertinent. - Ebola Screening: : No symptoms or risks identified at this time. - Hospitalizations: : No recent hospitalization is reported. Screenin:46 Abuse screen: Denies threats or abuse. Denies injuries from another. Nutritional lp1 screening: No deficits noted. Tuberculosis screening: No symptoms or risk factors identified. Fall Risk Total Nice Fall Scale indicates High Risk Score (45 or more points). Fall prevention measures have been instituted. Side Rails Up X 2 As available patient and family educated on Fall Prevention Program and Strategies. Assessment: 20:57 General: Appears in no apparent distress. uncomfortable, Behavior is calm, cooperative, jd3 appropriate for age. Pain: Denies pain. Neuro: Level of Consciousness is awake, alert, obeys commands, Oriented to person, place, time, situation, Appropriate for age Moves all extremities. Speech is normal, Pupils are PERRLA, Reports dizziness. Cardiovascular: Heart tones S1 S2 present Capillary refill < 3 seconds Patient's skin is warm and dry. Respiratory: Airway is patent Respiratory effort is even, unlabored, Respiratory pattern is regular, symmetrical, Breath sounds are clear bilaterally. GI: Abdomen is round Bowel sounds present X 4 quads. Abd is soft and non tender X 4 quads. : No signs and/or symptoms were reported regarding the genitourinary system. EENT: No signs and/or symptoms were reported regarding the EENT system. Derm: Skin is intact, Skin is dry, Skin is normal, Skin temperature is warm. Musculoskeletal: Circulation, motion, and sensation intact. Range of motion: intact in all extremities. 21:20 Reassessment: Patient appears in no apparent distress at this time. Patient and/or jd3 family updated on plan of care and expected duration. Pain level reassessed. Patient is alert, oriented x 3, equal unlabored respirations, skin warm/dry/pink. 22:38 Reassessment: Patient appears in no apparent distress at this time. No changes from jd3 previously documented assessment. Patient and/or family updated on plan of care and expected duration. Pain level reassessed. Patient is alert, oriented x 3, equal unlabored respirations, skin warm/dry/pink. 23:47 Reassessment: Patient appears in no apparent distress at this time. No changes from jd3 previously documented assessment. Patient and/or family updated on plan of care and expected duration. Pain level reassessed. Patient is alert, oriented x 3, equal unlabored respirations, skin warm/dry/pink. 02/27 00:26 Reassessment: Patient appears in no apparent distress at this time. Patient and/or jd3 family updated on plan of care and expected duration. Pain level reassessed. Patient is alert, oriented x 3, equal unlabored respirations, skin warm/dry/pink. pt reported understanding of discharge instructions, pt assisted to front of ER in wheelchair. Patient states feeling better. Vital Signs: 02/26 20:25 BP 166 / 58 Supine; Pulse 64; Resp 18; Temp 99.1(O); Pulse Ox 99% on R/A; Weight 53.52 lp1 kg; Height 5 ft. 0 in. (152.40 cm); Pain 0/10; 20:28 BP 189 / 58 Sitting; Pulse 68; lp1 20:31 BP 161 / 71 Standing; Pulse 76; lp1 21:19 BP 172 / 85; Pulse 59; Resp 12 S; Pulse Ox 100% on R/A; jd3 22:37 BP 153 / 47; Pulse 59; Resp 13 S; Pulse Ox 99% on R/A; jd3 23:44 BP 172 / 60; Pulse 61; Resp 14 S; Pulse Ox 100% on R/A; jd3 20:25 Body Mass Index 23.04 (53.52 kg, 152.40 cm) lp1 20:28 Patient states dizziness when transitioning from lying to sitting position lp1 20:31 Denies any dizziness when standing lp1 ED Course: 20:08 Patient arrived in ED. ds1 20:08 Trae Casillas MD is Private Physician. ds1 20:11 Jose Enrique Amos MD is Attending Physician. rn 20:26 Carlton Traore RN is Primary Nurse. jd3 20:36 Triage completed. lp1 20:36 Arm band placed on left wrist. lp1 20:[address] nj 20:40 CT completed. Patient tolerated procedure well. Patient moved back from CT. nj 20:40 CT Head Brain wo Cont In Process Unspecified. EDMS 21:00 Inserted saline lock: 20 gauge in right antecubital area, using aseptic technique. lp1 Blood collected. 21:02 Patient has correct armband on for positive identification. Placed in gown. Bed in low jd3 position. Call light in reach. Side rails up X2. Adult w/ patient. 23:10 X-ray completed. Portable x-ray completed in exam room. Patient tolerated procedure bb2 well. 23:13 XRAY Chest (1 view) In Process Unspecified. EDMS 02/27 00:10 Trae Casillas MD is Referral Physician. rn 00:27 No provider procedures requiring assistance completed. IV discontinued, intact, jd3 bleeding controlled, No redness/swelling at site. Pressure dressing applied. Administered Medications: 02/26 21:09 Drug: NS 0.9% 500 ml Route: IV; Rate: bolus; Site: right antecubital; lp1 22:36 Follow up: Response: No adverse reaction; IV Status: Completed infusion; IV Intake: jd3 500ml 22:36 Drug: NS 0.9% 250 ml Route: IV; Rate: bolus; Site: right antecubital; jd3 23:22 Follow up: Response: No adverse reaction; IV Status: Completed infusion; IV Intake: jd3 250ml Intake: 22:36 IV: 500ml; Total: 500ml. jd3 23:22 IV: 250ml; Total: 750ml. jd3 Outcome: 02/27 00:10 Discharge ordered by MD. rn 00:28 Discharged to home via wheelchair, with family. jd3 00:28 Condition: stable 00:28 Discharge instructions given to patient, family, Instructed on discharge instructions, follow up and referral plans. Demonstrated understanding of instructions, follow-up care. 00:29 Patient left the ED. jd3 Signatures: Dispatcher [facility] Randi Louise ds1 Jose Enrique Amos MD MD rn Pena, Laura, RN RN lp1 Edgardo Winkler Jonathon, RN RN jd3 Heather Saez2 Corrections: (The following items were deleted from the chart) 02/26 21:08 20:25 BP 166 / 58 Supine; Pulse 64bpm; Resp 18bpm; Pulse Ox 99% RA; 53.52 kg; Height 5 lp1 ft. 0 in.; BMI: 23.0; Pain 0/10; lp1
[2018-02-27 00:35] VITALS: TEMP 99.1
[2018-02-27 00:40] VITALS: BP 172/60; O2SAT 100
--- NOTE | 2018-02-27 07:27 | EKG ---
Test Date: 2018-02-26 Test Time: 20:53:25 Dope Pourer: AJ MEASUREMENT RESULTS: Intervals: Rate: 62 MD: 172 QRSD: 68 QT: 392 QTc: 397 Timblin: P: 55 MD: 172 QRS: 36 T: 103 INTERPRETIVE STATEMENTS: Normal sinus rhythm Normal ECG Compared to ECG 02/09/2018 00:51:24 no significant change from previous ECG Electronically Signed On 02-27-18 07:26:56 CDT by Ravinder Aaron
--- NOTE | 2018-02-27 09:02 | EKG ---
Test Date: 2018-02-26 Test Time: 21:13:44 Claims Auditor: AJ MEASUREMENT RESULTS: Intervals: Rate: 59 CO: 178 QRSD: 74 QT: 402 QTc: 397 [place]: P: 76 CO: 178 QRS: 38 T: 70 INTERPRETIVE STATEMENTS: Sinus bradycardia Otherwise normal ECG Compared to ECG 02/26/2018 20:53:25 Sinus rhythm no longer present Electronically Signed On 02-27-18 09:02:27 CDT by Ravinder Aaron
--- NOTE | 2018-02-27 11:38 | RAD REPORT ---
EXAM DESCRIPTION: RAD - Chest Single View - 02/26/2018 11:13 pm CLINICAL HISTORY: COUGH Chest pain. COMPARISON: Chest Single View dated 02/09/2018; Chest Single View dated 12/02/2017; Chest Single View d ated 11/25/2017; Chest Pa And Lat (2 Views) dated 10/01/2017 FINDINGS: Portable technique limits examination quality. The lungs are emphysematous but grossly clear. The heart is normal in size. No displaced fractures.To rtuous thoracic aorta. IMPRESSION: No acute intrathoracic process suspected. Mild COPD.
== END 2018-02-27 00:29 | disposition home or self-care (01) ==
LOC: ER 20:07
DX: R53.1 Weakness (principal); E78.00 Pure hypercholesterolemia, unspecified; I25.10 Atherosclerotic heart disease of native coronary artery without angina pectoris; G30.9 Alzheimer's disease, unspecified; F02.80 Dementia in other diseases classified elsewhere, unspecified severity, without behavioral disturbance, psychotic disturbance, mood disturbance, and anxiety; Z88.0 Allergy status to penicillin; Z95.818 Presence of other cardiac implants and grafts
CPT/HCPCS: 36415; 70450; 71045; 80048; 81003; 81015; 83735; 84484; 85025; 87070; 87081; 93005; 96360; 96361; 96365; 99284

== ENCOUNTER 2018-03-17 06:15 | Day surgery (SDC) | payer OTHER ==
[2018-03-16 15:47] LABS: Absolute Lymphocytes (CBC) 1.3 K/uL (0.7-4.9); Absolute Monocytes 0.2 K/uL (0.1-1.3); Absolute Neutrophil 2.8 K/uL (1.8-8.0); Basophils % 0.5 % (0-1.3); Eosinophils % 1.1 % (0-4.4); Hematocrit 34.4 % (36.0-45.0); Lymphocytes % 29.7 % (15.3-44.8); MCH 29.3 pg (27.0-35.0); MCV 89.4 fL (80-100); MPV 9.6 fL (7.6-11.3); Monocytes % 5.5 % (3.3-12.3); RBC Red Blood Cell Count 3.85 M/uL (3.86-4.86)
--- NOTE | 2018-03-16 15:48 | RAD REPORT ---
EXAM DESCRIPTION: RAD - Chest Pa And Lat (2 Views) - 03/16/2018 3:06 pm CLINICAL HISTORY: Preop chest, pending right mastectomy COMPARISON: February 26, 2018, February 09, 2018 TECHNIQUE: PA and lateral views of the chest were obtained. FINDINGS: The lungs are fibrotic as a baseline. An acute infiltrate is not suspected. A frontal proj ection shows hazy increased opacification over each lower lung field. This is believed to be overlyin g soft tissue. There is no evidence for infiltrate on the lateral projection. No failure or volume ov erload. Heart size is normal and central vasculature is within normal limits. No pleural effusion or pneumothorax seen. Osteopenic and degenerative bony changes are present. No acute bone process id entifiable. No aortic abnormality. IMPRESSION: Fibrotic lung change present as detailed. An acute cardiopulmonary process is not suspec robyn.
[2018-03-16 16:11] LABS: Potassium 4.1 mmol/L (3.5-5.1)
[2018-03-17] MEDS ORDERED: Ringers Lactate 1,000 ML IV ONE (07:05)
[2018-03-17] MEDS ORDERED: METHYLENE BLUE 0.5% 10 ML AMP ONE (08:23)
[2018-03-17] MEDS ORDERED: LIDOCAINE 1% MPF 5 ML VIAL ONE ×2 (08:23→08:27)
[2018-03-17] MEDS ORDERED: PROPOFOL 200 MG/20 ML VIAL IV ONE (08:26)
[2018-03-17] MEDS ORDERED: FENTANYL CITR 250 MCG/5 ML ONE (08:27)
[2018-03-17] MEDS ORDERED: ONDANSETRON HCL 40 MG/20 ML VIAL ONE (08:29)
[2018-03-17] MEDS ORDERED: CIPROFLOXACIN 400mg IV 400 MG/200 ML BAG IV ONE (09:05)
[2018-03-17] MEDS ORDERED: GLYCOPYRROLATE 0.2 MG/ML SYR ONE ×2 (09:08→09:32)
[2018-03-17] MEDS ORDERED: ROCURONIUM 50 MG/5 ML VIAL IV ONE (09:11)
[2018-03-17] MEDS ORDERED: NEOSTIGMINE 1 MG/ML -5 ML SYRINGE ONE (10:00)
[2018-03-17] MEDS ORDERED: HYDRALAZINE HCL 20 MG/ML VIAL ONE (10:27)
--- NOTE | 2018-03-17 10:44 | P.BOP ---
Preoperative diagnosis: right breast cancer Postoperative diagnosis: same Primary procedure: 1. Right mastectomy Secondary procedure: 2. right axillary sentinel lymphnode biopsy Websphere Developer: DENISE LEWIS (CRACK OFF PERSON) Estimated blood loss: <50cc Specimen: sentinel ln, right breast Findings: sentinel LN free of tumor by Dr Zuñiga Anesthesia: General Complications: None Transferred to: Recovery Room Condition: Good
[2018-03-17] MEDS ORDERED: CODEINE 30MG/APAP 300MG TAB ONE (12:12)
[2018-03-17 15:39] VITALS: TEMP 97.5; O2SAT 100
[2018-03-17 15:43] VITALS: BP 137/55
--- NOTE | 2018-03-17 21:18 | OP ---
Date of Procedure: 03/17/2018 Surgeon: Marcos Arevalo MD Baby Doctor: Melissa Church. Preoperative Diagnosis: Right breast cancer. Postoperative Diagnosis: Right breast cancer. Procedures: 1.Right mastectomy. 2.Right axillary sentinel lymph node biopsy. Estimated Blood Loss: Less than 50 cc. Specimen: Morris lymph node, right breast. Findings: Morris lymph node free of tumor by Dr. Zuñiga. Intraoperative lymphatic mapping numbers with the Neoprobe gamma counts shows as follows: In the rig ht axillary area, the skin basin is 2020. CPS in Vivo 725. CPS ex Vivo 1232. CPS ex Vivo 10 minute s, 1276. CPS background 0, blue node yes. Indications: This is a case of an 87-year-old patient diagnosed with breast cancer. The patient checo durant explained multiple options. She selected mastectomy with sentinel lymph node biopsy, if possible axillary dissection, with benefits, alternatives, and risks including, but not limited to infection, bleeding, damage to adjacent structures, anesthesia complication, recurrence, UT, and even . Kacey ken also understands this may not relieve any symptoms. She might need more than one surgical interven tion. She understands also that she has to follow with the oncologist after this to decide if chemo- radiation therapy is needed. She understood, signed a consent. The patient's family was also advise d and all the questions were answered to their satisfaction. She understands she has the option of b reast conservative treatment, but she still wants to remove completely the breast. The patient went this morning to the nuclear medicine suite where she received an injection of technetium sulfur collo id. At the recovery room several hours after, we checked for the sentinel lymph node, which was noti daniel to be already marked with this technetium. At that moment, then we proceeded and brought the pat ient to the operating room and placed in the supine position. Anesthesia was done without complicati on. A time-out was called. The right breast and axillary area were prepped and draped in usual ster ile fashion. We injected a blue dye over the area of the 4 quadrants around the lesion, which happen ed to be near the areolar area. Then, we massaged the area for about 15 minutes. The right breast a nd axillary region already were prepped and draped in the usual sterile fashion. A hand-held gamma p robe was placed to identify the area of location of the hot lymph node in the area of the axilla. An incision was made in that area. The count in Vivo was 725, previous the bed shows 220 counts per se cond. Otherwise known as CPS. The hot node was carefully identified and dissected free. Count chad rded after removal, ex Vivo 1232, and ex Vivo at 10 seconds 1276. We made sure that the node was mireya daniel on top of the probe pointing to the ceiling. The bed of the node measured 0 count after removal. The area was irrigated. Hemostasis obtained. At that moment, we proceeded to do the mastectomy. This may include an incisional mastectomy. We proceeded to do a total simple mastectomy. A skin inc ision was made in order to encompass also the nipple-areolar complex and the previous biopsy scar. T his was done in the oblique direction. The flaps were raised in the vascular plane, superiorly up to the clavicle, medially to the sternum, inferiorly to the anterior rectus sheath, and lateral to the lateral border of the pectoralis major muscle at latissimus dorsi. The flaps were raised carefully. The breast and the underlying fascia of the muscle were removed from medial to lateral. The lateral pedicle and the tail of Yeh were also included in this removal. The area was irrigated with no b leeding. The flap looked intact. Good capillary refill. We proceeded then to put 2 CARLOS drains in th e area exiting through a different incision and secured in place with 3-0 nylon, and then we proceede d to close the skin and subcutaneous tissue with 3-0 chromic and then andrew on top. Sponge count a nd instrument counts were correct. The patient tolerated the procedure well. The pathology already called once we were working on axillary area and they said the sentinel lymph node was free of any tu mors. A light compression dressing was placed over the area. The patient sent to recovery room in s table condition. The patient tolerated the procedure well. I talked to the family. They have a goo d family support with many people around in the waiting area at least 12-15 and they feel comfortable taking care of her tonight. If she recovers well and she tolerates pain medication by mouth and the n she may be able to go home. If she goes home, then she will be followed up in my office in 1 week or Thursday, call for appointment [phone]. Keep area dry for 48 hours, then may shower if needed, oth erwise we will prefer the patient to have an intact dressings until next visit. CARLOS drain to record o utput every 24 hours. Medications include, Tylenol No. 3 q.4 hours p.r.n. pain. TAB/CHAD Voice ID: [id number] Report ID: [id number]
== END 2018-03-17 13:00 | disposition home or self-care (01) ==
LOC: OR 06:15
PROVIDERS: ATTEND Surgery
PROC: 07B50ZX Excision of Right Axillary Lymphatic, Open Approach, Diagnostic (ICD-10-PCS; 2018-03-17)
PROC: 0HTT0ZZ Resection of Right Breast, Open Approach (ICD-10-PCS; principal; 2018-03-17 08:30)
DX: C50.011 Malignant neoplasm of nipple and areola, right female breast (principal); I51.9 Heart disease, unspecified; Z95.5 Presence of coronary angioplasty implant and graft; Z96.653 Presence of artificial knee joint, bilateral; Z88.0 Allergy status to penicillin
CPT/HCPCS: 19307; 36415; 38900; 71046; 80048; 85025; 88307; 88309; 88333; J0360; J0744; J2405; J2710

== ENCOUNTER 2018-03-17 21:00 | Emergency (ER) | payer OTHER ==
--- NOTE | 2018-03-17 21:59 | ER ---
Nurse's Notes [facility] Name: Jazmyn Ennis Age: 87 yrs Sex: Female : 1930 Arrival Date: 03/17/2018 Time: 21:02 Bed 17 Private MD: Diagnosis: Postprocedural hemorrhage and hematoma of skin and subcutaneous tissue following a procedure Presentation: 03/17 21:11 Presenting complaint: Patient states: Reports drainage from drain site to right chest. aj Patient had mastectomy today and was discharged from PACU at 1300. Family did not call surgeon. CARLOS drain full of serosanguinous fluid in triage. Patient is in NAD. Transition of care: patient was not received from another setting of care. Onset of symptoms was March 17, 2018. Risk Assessment: Do you want to hurt yourself or someone else? Patient reports no desire to harm self or others. Initial Sepsis Screen: Does the patient meet any 2 criteria? No. Patient's initial sepsis screen is negative. Does the patient have a suspected source of infection? No. Patient's initial sepsis screen is negative. Care prior to arrival: None. 21:11 Method Of Arrival: Wheelchair 21:11 Acuity: BUFFY 4 aj Triage Assessment: 21:13 General: Appears in no apparent distress. comfortable, Behavior is calm, cooperative, aj appropriate for age. Pain: Denies pain. Neuro: Level of Consciousness is awake, alert, obeys commands, Oriented to person, place, time, situation, Appropriate for age. Respiratory: Airway is patent Respiratory effort is even, unlabored, Respiratory pattern is regular, symmetrical. Derm: Skin is intact, is healthy with good turgor, Skin is pink, warm \T\ dry. normal, Drain to right chest. Historical: - Allergies: 21:13 PENICILLINS; aj - Home Meds: 21:13 memantine 10 mg Oral tab 1 tab 2 times per day [Active]; rosuvastatin 5 mg Oral tab 1 aj tab once daily [Active]; - PMHx: 21:13 Alzheimers; CAD; Dementia; High Cholesterol; aj - PSHx: 21:13 Heart stents; R femur fx; aj - Immunization history:: Adult Immunizations up to date. - Social history:: Smoking status: Patient/guardian denies using tobacco. - Ebola Screening: : Patient negative for fever greater than or equal to 101.5 degrees Fahrenheit, and additional compatible Ebola Virus Disease symptoms Patient denies exposure to infectious person Patient denies travel to an Ebola-affected area in the 21 days before illness onset No symptoms or risks identified at this time. Screenin:17 Abuse screen: Denies threats or abuse. Denies injuries from another. Nutritional mg2 screening: No deficits noted. Tuberculosis screening: No symptoms or risk factors identified. Fall Risk None identified. Assessment: 22:15 General: Appears in no apparent distress. comfortable, Behavior is calm, cooperative. mg2 Pain: Denies pain. Neuro: No deficits noted. Cardiovascular: No deficits noted. Respiratory: No deficits noted. GI: No deficits noted. : No deficits noted. EENT: No deficits noted. Derm: Skin is intact, Skin is pink, warm \T\ dry. normal, kristen rose drain, draining well but incision site is leaking. advised by dr davidson to follow up with the primary surgeon tomorrow morning. Musculoskeletal: Circulation, motion, and sensation intact. Vital Signs: 21:13 BP 116 / 47; Pulse 71; Resp 19; Temp 98.4; Pulse Ox 98% on R/A; Weight 49.9 kg; Height aj 5 ft. 2 in. (157.48 cm); 22:18 BP 117 / 59; Pulse 72; Resp 18; Pulse Ox 100% on R/A; Pain 0/10; mg2 21:13 Body Mass Index 20.12 (49.90 kg, 157.48 cm) ED Course: 21:02 Patient arrived in ED. ds1 21:13 Triage completed. aj 21:13 Arm band placed on left wrist. Patient placed. aj 21:26 Juancho Ortiz MD is Attending Physician. gs 21:31 Pepito Pina, RUTH is Primary Nurse. mg2 21:58 Marcos Arevalo MD is Referral Physician. gs 22:17 No provider procedures requiring assistance completed. Patient did not have IV access mg2 during this emergency room visit. 22:18 Patient has correct armband on for positive identification. Bed in low position. mg2 Administered Medications: No medications were administered Outcome: 21:59 Discharge ordered by . gs 22:17 Discharged to home via wheelchair, with family. mg2 22:17 Condition: stable 22:17 Discharge instructions given to patient, family, Instructed on discharge instructions, follow up and referral plans. Demonstrated understanding of instructions, follow-up care. 22:18 Patient left the ED. mg2 Signatures: Dorina Collins RN RN aj Sanford, Demi ds1 Juancho Ortiz MD MD Pepito Pina RN RN mg2
--- NOTE | 2018-03-17 21:59 | EDPHYS ---
Physician Documentation [facility] Name: Jazmyn Ennis Age: 87 yrs Sex: Female : 1930 Arrival Date: 03/17/2018 Time: 21:02 Bed 17 Private MD: ED Physician Juancho Ortiz HPI: 03/17 21:49 This 87 yrs old Female presents to ER via Wheelchair with complaints of gs Drainage Bag Leak. 21:49 Patient presents to ED for recheck of: post op bleeding, dressing with some saturation. gs The affected area is on the right lateral anterior chest. Previous treatment: The patient was initially treated on March 17, 2018, the care was rendered at [facility], Treatment type: The patient's original treatment included mastectomy by dr mendez. Progress: The patient reports increased drainage. The patient has not experienced similar symptoms in the past. Historical: - Allergies: 21:13 PENICILLINS; aj - Home Meds: 21:13 memantine 10 mg Oral tab 1 tab 2 times per day [Active]; rosuvastatin 5 mg Oral tab 1 aj tab once daily [Active]; - PMHx: 21:13 Alzheimers; CAD; Dementia; High Cholesterol; aj - PSHx: 21:13 Heart stents; R femur fx; aj - Immunization history:: Adult Immunizations up to date. - Social history:: Smoking status: Patient/guardian denies using tobacco. - Ebola Screening: : Patient negative for fever greater than or equal to 101.5 degrees Fahrenheit, and additional compatible Ebola Virus Disease symptoms Patient denies exposure to infectious person Patient denies travel to an Ebola-affected area in the 21 days before illness onset No symptoms or risks identified at this time. ROS: 21:49 All other systems are negative. gs Exam: 21:49 Cardiovascular: Regular rate and rhythm with a normal S1 and S2. No gallops, murmurs, gs or rubs. Normal PMI, no JVD. No pulse deficits. Respiratory: Lungs have equal breath sounds bilaterally, clear to auscultation and percussion. No rales, rhonchi or wheezes noted. No increased work of breathing, no retractions or nasal flaring. Abdomen/GI: Soft, non-tender, with normal bowel sounds. No distension or tympany. No guarding or rebound. No evidence of tenderness throughout. 21:49 Constitutional: The patient appears alert, awake. 21:49 Chest/axilla: mild amount of saturation lower part of dreesing, lifted up no massive bleeding, an's functional and draining 10cc in one about 50cc in others. Vital Signs: 21:13 BP 116 / 47; Pulse 71; Resp 19; Temp 98.4; Pulse Ox 98% on R/A; Weight 49.9 kg; Height aj 5 ft. 2 in. (157.48 cm); 22:18 BP 117 / 59; Pulse 72; Resp 18; Pulse Ox 100% on R/A; Pain 0/10; mg2 21:13 Body Mass Index 20.12 (49.90 kg, 157.48 cm) MDM: 21:45 Patient medically screened. 21:49 Data reviewed: vital signs, nurses notes. Physician consultation: Marcos hung regarding patient's condition, need to evaluate the patient as soon as possible, and will see patient in office, tomorrow. Administered Medications: No medications were administered Disposition: 03/17/18 21:59 Discharged to Home. Impression: Postprocedural hemorrhage and hematoma of skin and subcutaneous tissue following a procedure. - Condition is Stable. - Discharge Instructions: Bleeding Precautions When on Anticoagulant Therapy. - Medication Reconciliation Form, Thank You Letter, Antibiotic Education, Prescription Opioid Use form. - Follow up: Marcos Mendez MD; When: Tomorrow; Reason: Recheck today's complaints, Re-evaluation by your physician. Signatures: Dorina Collins RN RN Juancho Ortiz MD MD Pepito Pina RN RN mg2 Corrections: (The following items were deleted from the chart) 22:18 21:59 03/17/2018 21:59 Discharged to Home. Impression: Postprocedural hemorrhage and mg2 hematoma of skin and subcutaneous tissue following a procedure. Condition is Stable. Forms are Medication Reconciliation Form, Thank You Letter, Antibiotic Education, Prescription Opioid Use. Follow up: Marcos Mendez; When: Tomorrow; Reason: Recheck today's complaints, Re-evaluation by your physician. gs
[2018-03-17 22:34] VITALS: TEMP 98.4
[2018-03-17 22:35] VITALS: BP 117/59; O2SAT 100
== END 2018-03-17 22:18 | disposition home or self-care (01) ==
LOC: ER 21:00
DX: L76.32 Postprocedural hematoma of skin and subcutaneous tissue following other procedure (principal); E78.00 Pure hypercholesterolemia, unspecified; G30.9 Alzheimer's disease, unspecified; F02.80 Dementia in other diseases classified elsewhere, unspecified severity, without behavioral disturbance, psychotic disturbance, mood disturbance, and anxiety; Z88.0 Allergy status to penicillin; Z95.818 Presence of other cardiac implants and grafts
CPT/HCPCS: 99281

== ENCOUNTER 2019-02-26 09:53 | Emergency (ER) | payer OTHER ==
--- OUTSIDE RECORDS SUMMARY | 2019-02-26 09:55 | XMS REPORT ---
:1930 [facility] Address [address] [place] [address] Dr. Troncoso. [address] [place] [id number] Care Team Providers Name Role Phone Unavailable Unavailable Unavailable Problems This patient has no known problems. Allergies, Adverse Reactions, Alerts This patient has no known allergies or adverse reactions. Medications This patient has no known medications.
[2019-02-26] MEDS ORDERED: NA CHLORIDE 0.9% 500 ML ONE (10:15)
--- NOTE | 2019-02-26 10:48 | RAD REPORT ---
EXAM DESCRIPTION: CT - Facial Bones W/ Mpr - 02/26/2019 10:33 am CLINICAL HISTORY: Facial injury status post fall. Facial pain TECHNIQUE: Computed axial tomography of the face was obtained. Coronal and sagittal reconstruction w as performed. All CT scans are performed using dose optimization technique as appropriate and may include automated exposure control or mA/KV adjustment according to patient size. FINDINGS: A fracture is not seen. A TMJ dislocation is not noted. The globes are intact. Fluid within the sinuses is not seen. IMPRESSION: Negative for a facial fracture.
--- NOTE | 2019-02-26 10:52 | RAD REPORT ---
EXAM DESCRIPTION: CT - Head Brain Wo Cont - 02/26/2019 10:32 am CLINICAL HISTORY: Head injury status post fall COMPARISON: 2018 TECHNIQUE: Computed axial tomography of the head was obtained. IV contrast was not requested. All CT scans are performed using dose optimization technique as appropriate and may include automated exposure control or mA/KV adjustment according to patient size. FINDINGS: An intracranial bleed is not seen . The ventricles are normal in caliber. No extra-axial fluid collection is noted. Fluid within the sinuses/ mastoids is not seen. IMPRESSION: No acute intracranial abnormality is seen. If patient's symptoms persist MRI of the bra in would be recommended.
[2019-02-26 11:08] LABS: Absolute Lymphocytes (CBC) 1.1 K/uL (0.7-4.9); Basophils % 0.5 % (0-1.3); Hematocrit 32.2 % (36.0-45.0); Lymphocytes % 25.6 % (15.3-44.8); MPV 9.1 fL (7.6-11.3); Protime INR 0.95
[2019-02-26 11:23] LABS: Potassium 4.2 mmol/L (3.5-5.1)
[2019-02-26 11:31] LABS: Urine Bacteria 20-50 /HPF (<20); Urine Culture Reflex Order REFLEXED; Urine RBC <5 /HPF (NONE SEEN)
[2019-02-26] MEDS ORDERED: NITROFURAN MACRO 100 MG CAP PO ONE (11:41)
--- NOTE | 2019-02-26 11:54 | RAD REPORT ---
EXAM DESCRIPTION: RAD - Pelvis - 02/26/2019 10:39 am CLINICAL HISTORY: Pelvic pain status post injury FINDINGS: Old pelvic fractures. Osteoporosis. No acute fracture or dislocation. If patient has clinical symptoms to suggest an occult femoral fracture MRI would be recommended
--- NOTE | 2019-02-26 11:55 | RAD REPORT ---
EXAM DESCRIPTION: RAD - Knee Left 2 View - 02/26/2019 10:39 am CLINICAL HISTORY: Left knee pain FINDINGS: Right subcapital femoral fracture is mildly impacted and mildly displaced. Angulation is p resent at the fracture site. No dislocation . Limited two view series obtained
--- NOTE | 2019-02-26 11:56 | RAD REPORT ---
EXAM DESCRIPTION: RAD - Knee Right 2 View - 02/26/2019 10:39 am CLINICAL HISTORY: Right knee pain FINDINGS: No fracture or dislocation is seen. The prosthesis without evidence of loosening. Osteoporosis. Limited two view series obtained
--- NOTE | 2019-02-26 12:00 | RAD REPORT ---
EXAM DESCRIPTION: RAD - Foot Left 2 View - 02/26/2019 11:44 am CLINICAL HISTORY: Left Foot pain FINDINGS: Limited two view series Small bony density along the medial aspect of the base of the first proximal phalanx may be probably is either chronic or represents bone surrounded by prominent trabecula giving the appearance of a fra cture. An acute fracture is considered less likely. Clinical correlation is needed to see if the monica ent has point tenderness in this region to suggest a fracture. No dislocation Pes planus deformity. Osteoporosis
--- NOTE | 2019-02-26 13:07 | EDPHYS ---
Physician Documentation [facility] Name: Jazmyn Ennis Age: 88 yrs Sex: Female : 1930 Arrival Date: 02/26/2019 Time: 10:00 Bed 18 Private MD: ED Physician Jose Enrique Amos HPI: 02/26 10:25 This 88 yrs old Female presents to ER via EMS with complaints of Fall Injury. rn 10:25 Details of fall: The patient fell from an upright position. Onset: The symptoms/episode rn began/occurred just prior to arrival. Associated injuries: The patient sustained injury to the head. Severity of symptoms: At their worst the symptoms were mild, in the emergency department the symptoms have improved. The patient has not experienced similar symptoms in the past. states patient stood up from bed to use bathroom, got dizzy, fell, hit left cheek and head on nightstand, no LOC, no seizure, is on plavix, otherwise acting ok. No recent changes, denies chest pain/sob/abd pain/vomiting/diarrhea. Reports chronic knee pain that got worse after fall. Acting normal per .. Historical: - Allergies: 10:05 PENICILLINS; iw - Home Meds: 10:05 clopidogrel 75 mg Oral tab 1 tab daily [Active]; memantine 10 mg Oral tab 1 tab 2 times iw per day [Active]; Protonix Oral [Active]; olanzapine oral oral [Active]; exemestane oral oral [Active]; - PMHx: 10:05 Alzheimers; CAD; Dementia; High Cholesterol; ADD/ADHD; iw - Immunization history:: Adult Immunizations unknown. - Social history:: Smoking status: unknown. - Ebola Screening: : Patient negative for fever greater than or equal to 101.5 degrees Fahrenheit, and additional compatible Ebola Virus Disease symptoms Patient denies exposure to infectious person Patient denies travel to an Ebola-affected area in the 21 days before illness onset No symptoms or risks identified at this time. - Family history:: not pertinent. - Hospitalizations: : No recent hospitalization is reported. ROS: 10:25 Constitutional: Negative for fever, chills, and weight loss, Eyes: Negative for injury, rn pain, redness, and discharge, ENT: Negative for injury, pain, and discharge, Neck: Negative for injury, pain, and swelling, Cardiovascular: Negative for chest pain, palpitations, and edema, Respiratory: Negative for shortness of breath, cough, wheezing, and pleuritic chest pain, Abdomen/GI: Negative for abdominal pain, nausea, vomiting, diarrhea, and constipation, Back: Negative for injury and pain, MS/Extremity: Negative for deformity, Skin: + abrasion to left face Neuro: Negative for headache, weakness, numbness, tingling, and seizure. Exam: 10:25 Constitutional: This is a well developed, well nourished patient who is awake, alert, rn and in no acute distress. Head/Face: Normocephalic, small hematoma left parietal scalp, + abrasion to left cheek without bony tenderness or deformity. Eyes: Pupils equal round and reactive to light, extra-ocular motions intact. Lids and lashes normal. Conjunctiva and sclera are non-icteric and not injected. Cornea within normal limits. Periorbital areas with no swelling, redness, or edema. Neck: Trachea midline, no thyromegaly or masses palpated, and no cervical lymphadenopathy. Supple, full range of motion without nuchal rigidity, or vertebral point tenderness. No Meningismus. Cardiovascular: Regular rate and rhythm. No pulse deficits. Respiratory: Lungs have equal breath sounds bilaterally, clear to auscultation. No increased work of breathing, no retractions or nasal flaring. Abdomen/GI: Soft, non-tender MS/ Extremity: Pulses equal, no cyanosis. Painful ROM both knees, + post-surgical scars of both knees without swelling/erythema/ecchymosis. No tenderness or pain of hips. Neuro: Awake and alert, GCS 15, oriented to person, place, and situation. Cranial nerves II-XII grossly intact. Motor strength 5/5 in all extremities. Sensory grossly intact. 11:10 ECG was reviewed by the Attending Physician. rn Vital Signs: 10:05 BP 168 / 51; Pulse 57; Resp 18; Temp 97.8; Pulse Ox 100% on R/A; Pain 0/10; iw 11:19 BP 170 / 53; Pulse 58; Resp 18; Pulse Ox 100% on R/A; em 12:38 BP 147 / 91; Pulse 62; Resp 16; Pulse Ox 100% on R/A; Pain 0/10; em 13:24 BP 153 / 87; Pulse 69; Resp 16; Pulse Ox 98% on R/A; em MDM: 10:02 Patient medically screened. rn 13:05 Differential diagnosis: closed head injury, contusion, fracture, sprain, strain. Data rn reviewed: vital signs, nurses notes, lab test result(s), radiologic studies, CT scan, plain films, and as a result, I will discharge patient. Test interpretation: by ED physician or midlevel provider: plain radiologic studies, Xray left foot:Left foot proximal phalange with acute non-displaced fracture.. Counseling: I had a detailed discussion with the patient and/or guardian regarding: the historical points, exam findings, and any diagnostic results supporting the discharge/admit diagnosis, lab results, radiology results, the need for outpatient follow up, to return to the emergency department if symptoms worsen or persist or if there are any questions or concerns that arise at home. Response to treatment: the patient's symptoms have mildly improved after treatment, and as a result, I will discharge patient. Special discussion: I discussed with the patient/guardian in detail that at this point there is no indication for admission to the hospital. It is understood, however, that if the symptoms persist or worsen the patient needs to return immediately for re-evaluation. Based on the history and exam findings, there is no indication for further emergent testing or inpatient evaluation. I discussed with the patient/guardian the need to see the primary care provider for further evaluation of the symptoms. 02/26 10:04 Order name: CBC with Diff; Complete Time: 11:16 rn 02/26 10:04 Order name: Basic Metabolic Panel; Complete Time: 11:29 rn 02/26 10:04 Order name: Urine Microscopic Only; Complete Time: 12:07 rn 02/26 10:04 Order name: PT-INR; Complete Time: 11:16 rn 02/26 10:04 Order name: Ptt, Activated; Complete Time: 11:16 rn 02/26 11:33 Order name: Urine Culture EDMS 02/26 10:04 Order name: CT Head Brain wo Cont; Complete Time: 11:16 rn 02/26 10:04 Order name: CT Facial Bones W/O Con; Complete Time: 11:16 rn 02/26 10:04 Order name: XRAY Pelvis; Complete Time: 12:07 rn 02/26 10:04 Order name: XRAY Knee LEFT 2 view; Complete Time: 12:35 rn 02/26 10:04 Order name: XRAY Knee RIGHT 2 view; Complete Time: 12:07 rn 02/26 11:19 Order name: XRAY Foot LEFT 2 View; Complete Time: 12:07 rn 02/26 11:48 Order name: Urine Dipstick--Ancillary (enter results) 02/26 10:04 Order name: IV Start; Complete Time: 10:24 rn 02/26 10:04 Order name: Urine Dipstick-Ancillary (obtain specimen); Complete Time: 11:07 rn 02/26 10:04 Order name: EKG; Complete Time: 10:05 rn 02/26 10:04 Order name: EKG - Nurse/Tech; Complete Time: 11:07 rn EC:10 Rate is 54 beats/min. Rhythm is regular. QRS [place] is Normal. LA interval is normal. QRS rn interval is normal. QT interval is normal. No Q waves. T waves are Normal. No ST changes noted. Clinical impression: Normal ECG and Sinus bradycardia. Interpreted by me. Reviewed by me. Administered Medications: 10:50 Drug: NS 0.9% 500 ml Route: IV; Rate: bolus; Site: right antecubital; em 11:49 Follow up: IV Status: Completed infusion; IV Intake: 500ml em 11:49 Drug: Nitrofurantoin 100 mg Route: PO; em 12:29 Follow up: Response: No adverse reaction em Disposition: 02/26/19 13:06 Discharged to Home. Impression: Contusion of unspecified part of head, Pain in left knee, Pain in right knee, Urinary tract infection, site not specified, Nondisplaced fracture of proximal phalanx of left great toe. - Condition is Stable. - Discharge Instructions: Head Injury, Adult, Toe Fracture, Urinary Tract Infection, Adult, Knee Pain. - Prescriptions for Macrobid 100 mg Oral Capsule - take 1 capsule by ORAL route every 12 hours for 7 days; 14 capsule. - Medication Reconciliation Form, Thank You Letter, Antibiotic Education, Prescription Opioid Use form. - Follow up: Private Physician; When: As needed; Reason: Recheck today's complaints, Re-evaluation by your physician. - Problem is new. - Symptoms have improved. Signatures: Dispatcher [employer] EDHai Cordova, PARTS CLEANER PARTS CLEANER em Joe, JuanaRUTH lei RN, Roman, MD MD rn Corrections: (The following items were deleted from the chart) 10:27 10:25 Constitutional: Negative for fever, chills, and weight loss, Eyes: Negative for rn injury, pain, redness, and discharge, ENT: Negative for injury, pain, and discharge, Neck: Negative for injury, pain, and swelling, Cardiovascular: Negative for chest pain, palpitations, and edema, Respiratory: Negative for shortness of breath, cough, wheezing, and pleuritic chest pain, Abdomen/GI: Negative for abdominal pain, nausea, vomiting, diarrhea, and constipation, Back: Negative for injury and pain, MS/Extremity: Negative for injury and deformity, Skin: + abrasion to left face Neuro: Negative for headache, weakness, numbness, tingling, and seizure, rn 11:11 11:10 Rate is 60 beats/min. Rhythm is regular. QRS [place] is Normal. LA interval is rn normal. QRS interval is normal. QT interval is normal. No Q waves. T waves are Normal. No ST changes noted. Clinical impression: Normal ECG. Interpreted by me. Reviewed by me. rn 13:06 13:06 02/26/2019 13:06 Discharged to Home. Impression: Contusion of unspecified part of rn head; Pain in left knee; Pain in right knee; Urinary tract infection, site not specified. Condition is Stable. Discharge Instructions: Head Injury, Adult, Urinary Tract Infection, Adult, Knee Pain. Prescriptions for Macrobid 100 mg Oral Capsule - take 1 capsule by ORAL route every 12 hours for 7 days; 14 capsule. and Forms are Medication Reconciliation Form, Thank You Letter, Antibiotic Education, Prescription Opioid Use. Follow up: Private Physician; When: As needed; Reason: Recheck today's complaints, Re-evaluation by your physician. Problem is new. Symptoms have improved. rn 13:25 13:06 02/26/2019 13:06 Discharged to Home. Impression: Contusion of unspecified part of em head; Pain in left knee; Pain in right knee; Urinary tract infection, site not specified; Nondisplaced fracture of proximal phalanx of left great toe. Condition is Stable. Discharge Instructions: Head Injury, Adult, Urinary Tract Infection, Adult, Knee Pain. Prescriptions for Macrobid 100 mg Oral Capsule - take 1 capsule by ORAL route every 12 hours for 7 days; 14 capsule. and Forms are Medication Reconciliation Form, Thank You Letter, Antibiotic Education, Prescription Opioid Use. Follow up: Private Physician; When: As needed; Reason: Recheck today's complaints, Re-evaluation by your physician. Problem is new. Symptoms have improved. rn
--- NOTE | 2019-02-26 13:07 | ER ---
Nurse's Notes [facility] Name: Jazmyn Ennis Age: 88 yrs Sex: Female : 1930 Arrival Date: 02/26/2019 Time: 10:00 Bed 18 Private MD: Diagnosis: Contusion of unspecified part of head;Pain in left knee;Pain in right knee;Urinary tract infection, site not specified;Nondisplaced fracture of proximal phalanx of left great toe Presentation: 02/26 10:01 Presenting complaint: EMS states: fell out of bed this morning and hit head on drawer, iw reported being dizzy prior to fall, is taking Plavix, small laceration noted to left cheek. Transition of care: patient was not received from another setting of care. Onset of symptoms was February 26, 2019. Risk Assessment: Do you want to hurt yourself or someone else? Patient reports no desire to harm self or others. Initial Sepsis Screen: Does the patient meet any 2 criteria? No. Patient's initial sepsis screen is negative. Does the patient have a suspected source of infection? No. Patient's initial sepsis screen is negative. Care prior to arrival: None. 10:01 Method Of Arrival: EMS: [facility] iw 10:01 Acuity: BUFFY 3 iw Trauma Activation: Alert Physician: ED Physician; Name: Bette; Notified At: 10:04; Arrived At: 10:04 Physician: General Surgeon; Name: ; Notified At: 10:04; Arrived At: Physician: Radiology; Name: Patito Patino Araceli; Notified At: 10:04; Arrived At: 10:06 Physician: Respiratory; Name: ; Notified At: 10:04; Arrived At: Physician: Lab; Name: ; Notified At: 10:04; Arrived At: Historical: - Allergies: 10:05 PENICILLINS; iw - Home Meds: 10:05 clopidogrel 75 mg Oral tab 1 tab daily [Active]; memantine 10 mg Oral tab 1 tab 2 times iw per day [Active]; Protonix Oral [Active]; olanzapine oral oral [Active]; exemestane oral oral [Active]; - PMHx: 10:05 Alzheimers; CAD; Dementia; High Cholesterol; ADD/ADHD; iw - Immunization history:: Adult Immunizations unknown. - Social history:: Smoking status: unknown. - Ebola Screening: : Patient negative for fever greater than or equal to 101.5 degrees Fahrenheit, and additional compatible Ebola Virus Disease symptoms Patient denies exposure to infectious person Patient denies travel to an Ebola-affected area in the 21 days before illness onset No symptoms or risks identified at this time. - Family history:: not pertinent. - Hospitalizations: : No recent hospitalization is reported. Screenin:05 Abuse screen: Denies threats or abuse. Nutritional screening: No deficits noted. em Tuberculosis screening: No symptoms or risk factors identified. Fall Risk Fall in past 12 months (25 points). Secondary diagnosis (15 points) dementia, Total Nice Fall Scale indicates Low Risk Score (25-44 pts). Fall prevention measures have been instituted. Side Rails Up X 2 Family Present and informed to notify staff if they need to leave bedside. Assessment: 10:05 General: Appears in no apparent distress. comfortable, Behavior is calm, cooperative. em Pain: Denies pain. Neuro: Level of Consciousness is awake, alert, obeys commands, Oriented to person, place, time, situation, Speech is normal, Facial symmetry appears normal, Pupils are PERRLA. Cardiovascular: Capillary refill < 3 seconds Patient's skin is warm and dry. Respiratory: Airway is patent Respiratory effort is even, unlabored, Respiratory pattern is regular, symmetrical. GI: Patient currently denies nausea, vomiting. Derm: Skin is intact, is healthy with good turgor, Skin is pink, warm \T\ dry. Musculoskeletal: Capillary refill < 3 seconds, Range of motion: intact in all extremities. 10:05 Injury Description: Laceration sustained to left cheek. em 11:20 Reassessment: Patient appears in no apparent distress at this time. Patient and/or em family updated on plan of care and expected duration. Pain level reassessed. Patient is alert, oriented x 3, equal unlabored respirations, skin warm/dry/pink. 12:37 Reassessment: Patient appears in no apparent distress at this time. Patient and/or em family updated on plan of care and expected duration. Pain level reassessed. Patient is alert, oriented x 3, equal unlabored respirations, skin warm/dry/pink. assisted pt to bedpan, tolerated well. 13:23 Reassessment: Patient appears in no apparent distress at this time. Patient and/or em family updated on plan of care and expected duration. Pain level reassessed. Patient is alert, oriented x 3, equal unlabored respirations, skin warm/dry/pink. assisted to wheelchair, tolerated well. Vital Signs: 10:05 BP 168 / 51; Pulse 57; Resp 18; Temp 97.8; Pulse Ox 100% on R/A; Pain 0/10; iw 11:19 BP 170 / 53; Pulse 58; Resp 18; Pulse Ox 100% on R/A; em 12:38 BP 147 / 91; Pulse 62; Resp 16; Pulse Ox 100% on R/A; Pain 0/10; em 13:24 BP 153 / 87; Pulse 69; Resp 16; Pulse Ox 98% on R/A; em ED Course: 10:00 Patient arrived in ED. iw 10:01 Juana Diaz, RUTH is Primary Nurse. iw 10:02 Jose Enrique Amos MD is Attending Physician. rn 10:05 Arm band placed on. iw 10:05 Patient has correct armband on for positive identification. Placed in gown. Bed in low em position. Call light in reach. Side rails up X2. Adult w/ patient. Pulse ox on. NIBP on. 10:05 Patient maintains SpO2 saturation greater than 95% on room air. em 10:10 Triage completed. iw 10:32 CT completed. Patient tolerated procedure well. Patient moved to radiology. bq 10:33 CT Head Brain wo Cont In Process Unspecified. EDMS 10:33 CT Facial Bones W/O Con In Process Unspecified. EDMS 10:39 XRAY Pelvis In Process Unspecified. EDMS 10:39 XRAY Knee LEFT 2 view In Process Unspecified. EDMS 10:39 XRAY Knee RIGHT 2 view In Process Unspecified. EDMS 10:50 Initial lab(s) drawn, by me, sent to lab. Inserted saline lock: 20 gauge in right em antecubital area, using aseptic technique. Blood collected. 11:07 Urine collected: straight cath specimen, clear, Amount Returned: 550mL EKG done, by ED ms staff, reviewed by Jose Enrique Amos MD. Straight cath inserted, using sterile technique, 16 Fr. Specimen obtained. 11:45 XRAY Foot LEFT 2 View In Process Unspecified. EDMS 13:25 No provider procedures requiring assistance completed. IV discontinued, intact, em bleeding controlled, No redness/swelling at site. Pressure dressing applied. Administered Medications: 10:50 Drug: NS 0.9% 500 ml Route: IV; Rate: bolus; Site: right antecubital; em 11:49 Follow up: IV Status: Completed infusion; IV Intake: 500ml em 11:49 Drug: Nitrofurantoin 100 mg Route: PO; em 12:29 Follow up: Response: No adverse reaction em Intake: 11:49 IV: 500ml; Total: 500ml. em Outcome: 13:06 Discharge ordered by MD. rn 13:25 Discharged to home via wheelchair, with family. em 13:25 Condition: good 13:25 Discharge instructions given to patient, family, Instructed on discharge instructions, follow up and referral plans. medication usage, Demonstrated understanding of instructions, follow-up care, medications, Prescriptions given X 1. 13:25 Patient left the ED. em Addendum: 03/01/2019 09:47 Addendum: Culture Results: Positive urine culture. No further action required. Bacteria s s sensitive to prescribed antibiotic. Signatures: Dispatcher [employer] EDMS Patito Prieto bq Jhonny, Hai, SECURITY AMBASSADOR SECURITY AMBASSADOR em Juana Diaz RN RN iw Solis, Maria ms Nieto, Roman, MD MD rn Smirch, Shelby, RN RN ss Corrections: (The following items were deleted from the chart) 02/26 10:33 10:01 Presenting complaint: EMS states: fell out of bed this morning and hit head on em drawer, reported being dizzy prior to fall, is taking Plavix iw 10:35 10:05 Derm: Skin is intact, is healthy with good turgor, Skin is pink, warm \T\ dry. em em
[2019-02-26 13:36] VITALS: TEMP 97.8
[2019-02-26 13:40] VITALS: BP 153/87; O2SAT 98
[2019-02-26 13:55] LABS: Urine Blood TRACE (NEG); Urine Glucose NEGATIVE (NEG); Urine Protein NEGATIVE (NEG)
--- NOTE | 2019-02-27 12:43 | EKG ---
Test Date: 2019-02-26 Test Time: 10:50:20 [employer] S[employer] Machine Feeder: MEASUREMENT RESULTS: Intervals: Rate: 54 WY: 188 QRSD: 76 QT: 432 QTc: 409 [place]: P: 54 WY: 188 QRS: 34 T: 58 INTERPRETIVE STATEMENTS: Sinus bradycardia Otherwise normal ECG Compared to ECG 04/08/2018 00:13:45 Sinus rhythm no longer present Electronically Signed On 02-27-19 07:13:46 CDT by Raul Brown
== END 2019-02-26 13:25 | disposition home or self-care (01) ==
LOC: ER 09:53
DX: S92.415A Nondisplaced fracture of proximal phalanx of left great toe, initial encounter for closed fracture (principal); M25.562 Pain in left knee; M25.561 Pain in right knee; N39.0 Urinary tract infection, site not specified; W01.190A Fall on same level from slipping, tripping and stumbling with subsequent striking against furniture, initial encounter; Y93.89 Activity, other specified; Y92.003 Bedroom of unspecified non-institutional (private) residence as the place of occurrence of the external cause; E78.00 Pure hypercholesterolemia, unspecified; F03.90 Unspecified dementia, unspecified severity, without behavioral disturbance, psychotic disturbance, mood disturbance, and anxiety; G30.9 Alzheimer's disease, unspecified; F02.80 Dementia in other diseases classified elsewhere, unspecified severity, without behavioral disturbance, psychotic disturbance, mood disturbance, and anxiety; Z88.0 Allergy status to penicillin
CPT/HCPCS: 36415; 51702; 70450; 70486; 72170; 76377; 80048; 81003; 81015; 85025; 85610; 85730; 87077; 87086; 87088; 87186; 93005; 96360; 99285

== ENCOUNTER 2019-08-12 15:24 | Emergency (ER) | payer OTHER ==
--- OUTSIDE RECORDS SUMMARY | 2019-08-12 15:27 | XMS REPORT ---
:1930 Author Organization [facility] Address [address] [place] [address] Dr. Troncoso. [address] [place] [id number] Care Team Providers Name Role Phone Unavailable Unavailable Unavailable Problems This patient has no known problems. Allergies, Adverse Reactions, Alerts This patient has no known allergies or adverse reactions. Medications This patient has no known medications.
--- NOTE | 2019-08-12 17:40 | RAD REPORT ---
EXAM DESCRIPTION: RAD - Pelvis - 08/12/2019 5:32 pm CLINICAL HISTORY: Pain, diminished ambulation, prior fall with left hip pain COMPARISON: February 2019 TECHNIQUE: AP imaging of the pelvis was obtained. FINDINGS: Lower lumbar degenerative changes are present only partially imaged. Bilateral SI joint de generative changes are present. No gross evidence for sacral ala fracture. Osteopenic changes are pre sent. No left hemithorax fracture evident. Old remodeling from prior right rami fractures. Right femu r fracture fixation hardware in place. Left greater than right hip degenerative changes are present. No suspicious soft tissue finding. IMPRESSION: Osteopenic and degenerative changes are present as detailed. Old trauma change noted on the right. No acute findings seen from the February 2019 study.
--- NOTE | 2019-08-12 17:42 | RAD REPORT ---
EXAM DESCRIPTION: RAD - Hip Left 2 View - 08/12/2019 5:32 pm CLINICAL HISTORY: Fall, left hip pain COMPARISON: None. FINDINGS: AP and frogleg views of the left hip were obtained. No gross fracture deformity is seen. S ubcapital neck region is not outside the range of normal. Degenerative change present along the super ior acetabular rim. No pathologic bone process seen. SI joint degenerative changes noted. No acute or destructive bony process seen. No soft tissue abnormality. IMPRESSION: Degenerative changes of the left hip without fracture confirmed. If the patient has symptoms out of proportion to radiographic findings, follow-up thin section CT sergey ging could be performed.
--- NOTE | 2019-08-12 17:43 | RAD REPORT ---
EXAM DESCRIPTION: RAD - Chest Single View - 08/12/2019 5:34 pm CLINICAL HISTORY: Fall, pelvis, left hip and chest pain COMPARISON: March 2018 TECHNIQUE: AP portable chest image was obtained 1731 hours . FINDINGS: Lung volumes are low. No peripheral mass or consolidation. Interstitial fibrotic pattern a gain noted. Heart and vasculature are normal. No measurable pleural effusion and no pneumothorax. No acute bony abnormality seen. No acute aortic findings suspected. IMPRESSION: Shallow inspiration film without acute cardiopulmonary finding.
[2019-08-12 18:10] LABS: Protime INR 1.09
--- NOTE | 2019-08-12 18:10 | RAD REPORT ---
EXAM DESCRIPTION: CT - Stone Protocol - 08/12/2019 5:41 pm CLINICAL HISTORY: abdominal pain COMPARISON: Head C Spine Mpr Wo Con dated 08/12/2019 TECHNIQUE: Axial [address] imaging of the abdomen and pelvis was performed without IV contrast. No IV contrast was given because of allergy, abnormal renal function, patient refusal or physician re quest. No oral contrast. All CT scans are performed using dose optimization technique as appropriate and may include automated exposure control or mA/KV adjustment according to patient size. FINDINGS: No suspicious findings in the lung bases. The liver, spleen and pancreas show no suspicious findings on non-contrast imaging. Several small low -density masses in the liver are believed be incidental cysts. Cholecystectomy clips are present. No biliary tree dilatation. No hydronephrosis or suspicious renal mass. A 3 centimeter round low-density mass lateral mid left ki dney is to be an incidental cyst. No significant adrenal finding. Isodense renal masses and pyeloneph ritis cannot be excluded in the absence of IV contrast. The urinary bladder is without significant fi nding. Significant pelvic floor laxity is evident. No acute bowel finding. Sigmoid diverticulosis is relatively mild. No free air, free fluid or inflam matory stranding. No hernia, mass or bulky lymphadenopathy. Dense vascular calcifications are present. Old fracture fixation hardware is present in the proximal right femur. No acute right femur finding i dentified. There are subtle cortical and trabecular changes in the subcapital region of the left femo ral neck concerning for fracture. No pathologic bone component. No intertrochanteric involvement. Old fractures are seen in the right superior pubic ramus and ischium. Old fracture changes are seen in t he right sacral ala. Left sacral ala or left hemipelvis fracture changes are not identified. Acute fracture changes are present in the L5 body with approximately 15% loss in height. There is sli ght bulb bowing of the posterior wall without significant central canal encroachment. Advanced mid an d lower lumbar facet joint degenerative changes are present. No pathologic changes in the L5 body. IMPRESSION: Acute L5 compression fracture with 15% loss in height. Mild bowing of the posterior wall is present but does not cause significant canal stenosis. Suspected but not definitive left femur subcapital neck fracture. Old right femur and right hemipelvis fracture changes. No other acute bone findings confirmed. No traumatic injury to the soft tissues. Full assessment is limited is the absence of IV contrast.
--- NOTE | 2019-08-12 18:13 | RAD REPORT ---
EXAM DESCRIPTION: CT - CTHCSPWOC - 08/12/2019 5:40 pm CLINICAL HISTORY: Fall, head and neck injury COMPARISON: None. TECHNIQUE: Axial 5 mm thick images of the head were obtained. Axial 2 mm thick images of the cervic al spine were obtained with sagittal and coronal reconstruction images generated and reviewed. All CT scans are performed using dose optimization technique as appropriate and may include automated exposure control or mA/KV adjustment according to patient size. FINDINGS: No intracranial hemorrhage, mass, edema or acute intracranial finding. No suspicion for acute infarct ion. Moderate severity atrophy and chronic ischemic changes are present. Ventricles are in proportion . Mastoid air cells are not pneumatized. There is partial opacification of the left middle here in th e right external auditory canal. No globe or orbital content abnormality. Mild mucosal thickening in the right maxillary sinus. Cervical body height and alignment are normal. C5-6 and C6-7 disc space narrowing. Mild endplate spur ring changes are present. No significant foraminal encroachment. No fracture or acute bony abnormalit y. Central canal detail is inherently limited. No paraspinal mass or hematoma. IMPRESSION: Moderate severity atrophy and chronic ischemic no acute intracranial finding. Cervical spine degenerative changes are present relatively mild for age. No acute finding.
[2019-08-12 18:17] LABS: Basophils % 0.3 % (0-1.3); Lymphocytes % 15.6 % (15.3-44.8); MPV 8.8 fL (7.6-11.3); RBC Red Blood Cell Count 3.48 M/uL (3.86-4.86)
[2019-08-12 18:24] LABS: AST/SGOT 18 U/L (15-37); Albumin 3.6 g/dL (3.4-5.0); Alkaline Phosphatase 63 U/L (45-117); BUN Blood Urea Nitrogen 18 mg/dL (7-18); Bicarbonate 30 mmol/L (21-32); Bilirubin Direct 0.4 mg/dL (0-0.2); Glucose Level 88 mg/dL (74-106); Magnesium 2.2 mg/dL (1.8-2.4); NT PRO-BNP 595 pg/mL (<450); Protein, Total 7.2 g/dL (6.4-8.2); Sodium Level 144 mmol/L (136-145); Troponin (Emerg Dept Use Only) < 0.02 ng/mL (0.0-0.045)
[2019-08-12 18:37] LABS: ALT/SGPT < 6 U/L (12-78)
--- NOTE | 2019-08-12 20:18 | EDPHYS ---
Physician Documentation [facility] Name: Jazmyn Ennis Age: 89 yrs Sex: Female : 1930 Arrival Date: 08/12/2019 Time: 15:28 Bed 4 Private MD: Trae Casillas R ED Physician Tan Hester HPI: 08/12 17:26 This 89 yrs old Female presents to ER via Wheelchair with complaints of jmm Trouble Walking. 17:26 Details of fall: The patient fell from an upright position. Onset: The symptoms/episode jmm began/occurred acutely, 2 day(s) ago. Associated injuries: The patient sustained injury to the head. This is an 89 year old female with a history of alzheimers, CAD, HLP that presents to the ED after a fall which occurred approx 2 days ago. Family states the patient hit her head and appears to have pain on the left leg. Family states the patient had another fall yesterday. Has fractured her right femur in the past. . Historical: - Allergies: 15:42 PENICILLINS; dm5 - PMHx: 15:42 ADD/ADHD; Alzheimers; CAD; Dementia; High Cholesterol; dm5 - Immunization history:: Adult Immunizations up to date. - Social history:: Smoking status: Patient denies any tobacco usage or history of. - Ebola Screening: : No symptoms or risks identified at this time. ROS: 17:26 Constitutional: Negative for fever, chills, and weight loss, Cardiovascular: Negative jmm for chest pain, palpitations, and edema, Respiratory: Negative for shortness of breath, cough, wheezing, and pleuritic chest pain. 17:26 Abdomen/GI: Positive for abdominal pain, constipation. 17:26 MS/extremity: Positive for pain. 17:26 All other systems are negative. Exam: 17:26 Head/Face: atraumatic. Eyes: EOMI, no conjunctival erythema appreciated ENT: Moist jmm Mucus Membranes Neck: Trachea midline, Supple Chest/axilla: Normal chest wall appearance and motion. Cardiovascular: Regular rate and rhythm. No edema appreciated Respiratory: Normal respirations, no respiratory distress appreciated 17:26 Constitutional: The patient appears alert, awake. 17:26 Abdomen/GI: Inspection: abdomen appears normal, Bowel sounds: normal, Palpation: abdomen is soft and non-tender, in all quadrants. 17:26 Musculoskeletal/extremity: mild left hip pain on flexion. 17:26 Skin: Appearance: Color: normal in color. 17:26 Neuro: Motor: is normal. 17:26 Psych: Behavior/mood is pleasant, cooperative. Vital Signs: 15:42 BP 159 / 50; Pulse 64; Resp 18; Temp 98.3(TE); Pulse Ox 97% on R/A; Weight 50.8 kg (R); dm5 Height 5 ft. 1 in. (154.94 cm); 18:07 BP 185 / 61; Pulse 69; Resp 16; Pulse Ox 99% on R/A; em 19:30 BP 173 / 53; Pulse 73; Resp 18; Pulse Ox 100% on R/A; ea 20:30 BP 161 / 63; Pulse 79; Resp 18; Temp 98.2; Pulse Ox 97% ; ea 21:30 BP 179 / 67; Pulse 82; Resp 18; Pulse Ox 100% ; ea 15:42 Body Mass Index 21.16 (50.80 kg, 154.94 cm) dm5 MDM: 17:05 Patient medically screened. keegan 19:38 ED course: Dr. Madrid accepted transfer. [facility] 20:15 Data reviewed: vital signs, nurses notes. Counseling: I had a detailed discussion with constance the patient and/or guardian regarding: the historical points, exam findings, and any diagnostic results supporting the discharge/admit diagnosis, radiology results, the need to transfer to another facility. 08/12 17:16 Order name: Basic Metabolic Panel; Complete Time: 18:40 [facility] 08/12 17:16 Order name: CBC with Diff; Complete Time: 18:20 [facility] 08/12 17:16 Order name: LFT's; Complete Time: 18:40 [facility] 08/12 17:16 Order name: Magnesium; Complete Time: 18:40 [facility] 08/12 17:16 Order name: NT PRO-BNP; Complete Time: 18:40 [facility] 08/12 17:16 Order name: PT-INR; Complete Time: 18:18 [facility] 08/12 16:57 Order name: Pelvis XRAY; Complete Time: 17:47 snw 08/12 16:57 Order name: Hip Left 2 View XRAY; Complete Time: 17:47 w 08/12 17:16 Order name: Troponin (emerg Dept Use Only); Complete Time: 18:40 [facility] 08/12 17:16 Order name: XRAY Chest (1 view); Complete Time: 17:47 [facility] 08/12 17:16 Order name: EKG; Complete Time: 17:17 [facility] 08/12 17:16 Order name: CT Head C Spine; Complete Time: 18:18 [facility] 08/12 17:25 Order name: CT Stone Protocol; Complete Time: 20:47 [facility] 08/12 17:16 Order name: Cardiac monitoring; Complete Time: 18:10 [facility] 08/12 17:16 Order name: EKG - Nurse/Tech; Complete Time: 18:10 [facility] 08/12 17:16 Order name: IV Saline Lock; Complete Time: 18:10 [facility] 08/12 17:16 Order name: Labs collected and sent; Complete Time: 18:10 [facility] 08/12 17:16 Order name: O2 Per Protocol; Complete Time: 18:10 [facility] 08/12 17:16 Order name: O2 Sat Monitoring; Complete Time: 18:10 [facility] 08/12 20:47 Order name: Leone; Complete Time: 20:47 ea Administered Medications: No medications were administered Disposition: 08/12/19 20:17 Transfer ordered to [facility]. Diagnosis are L5 Compression Fracture, Left Femur fracture. - Reason for transfer: Higher level of care. - Accepting physician is Presarn. - Condition is Stable. - Problem is new. - Symptoms are unchanged. Addendum: 08/14/2019 10:00 Co-signature as Attending Physician, Tan Hester MD I agree with the assessment and c lua plan of care. Signatures: Dispatcher [employer] Raven Magaña, RN RN dm5 Tan Hester MD MD cha Mickail, Joel, PA PA Gaye Sal, RN RN ea Corrections: (The following items were deleted from the chart) 08/12 21:31 19:45 Hip Left Wo Con ordered. EDTX EDMS 21:45 20:17 08/12/2019 20:17 Transfer ordered to [facility]. ea Diagnosis is L5 Compression Fracture; Left Femur fracture. Reason for transfer: Higher level of care. Accepting physician is [facility]. Condition is Stable. Problem is new. Symptoms are unchanged. jmm
--- NOTE | 2019-08-12 20:18 | ER ---
Nurse's Notes [facility] Name: Jazmyn Ennis Age: 89 yrs Sex: Female : 1930 Arrival Date: 08/12/2019 Time: 15:28 Bed 4 Private MD: Trae Casillas R Diagnosis: L5 Compression Fracture;Left Femur fracture Presentation: 08/12 15:40 Presenting complaint: Child states: didn't want to walk starting last night around dm5 1030pm, pt fell last week and landed on left hip. Pt also hasn't been wanting to eat or drink and didn't urinate over night but has urinated today. Transition of care: patient was not received from another setting of care. 15:40 Method Of Arrival: Wheelchair dm5 15:40 Acuity: BUFFY 3 dm5 15:43 Note pt also reports abdominal pain. dm5 20:01 Onset of symptoms was August 12, 2019. Risk Assessment: Do you want to hurt yourself ea or someone else? Patient reports no desire to harm self or others. Initial Sepsis Screen: Does the patient meet any 2 criteria? No. Patient's initial sepsis screen is negative. Does the patient have a suspected source of infection? No. Patient's initial sepsis screen is negative. Care prior to arrival: None. Historical: - Allergies: 15:42 PENICILLINS; dm5 - PMHx: 15:42 ADD/ADHD; Alzheimers; CAD; Dementia; High Cholesterol; dm5 - Immunization history:: Adult Immunizations up to date. - Social history:: Smoking status: Patient denies any tobacco usage or history of. - Ebola Screening: : No symptoms or risks identified at this time. Screenin:56 Abuse screen: no apparent signs noted. Nutritional screening: No deficits noted. em Tuberculosis screening: No symptoms or risk factors identified. Fall Risk Fall in past 12 months (25 points). Total Nice Fall Scale indicates Low Risk Score (25-44 pts). Side Rails Up X 2 Placed close to Nursing Station Frequent Obs/Assesments occuring Family Present and informed to notify staff if they need to leave bedside. Assessment: 16:57 General: Appears in no apparent distress. comfortable, Behavior is calm, cooperative, em appropriate for age. Pain: Complains of pain in left hip Unable to use pain scale. FLACC scale score is 0 out of 10. Neuro: Level of Consciousness is awake, alert, obeys commands. Cardiovascular: Capillary refill < 3 seconds Patient's skin is warm and dry. Respiratory: Airway is patent Respiratory effort is even, unlabored, Respiratory pattern is regular, symmetrical. Derm: Skin is intact, is thin, Skin is pink, warm \T\ dry. Musculoskeletal: Capillary refill < 3 seconds. 17:48 Reassessment: Pt back from CT . aa5 18:07 Reassessment: Patient appears in no apparent distress at this time. Patient and/or em family updated on plan of care and expected duration. Pain level reassessed. Patient is alert, oriented x 3, equal unlabored respirations, skin warm/dry/pink. 19:30 General: Appears in no apparent distress. Behavior is calm, cooperative, appropriate ea for age. Pain: Complains of pain in left hip. Neuro: Level of Consciousness is awake, alert, obeys commands, Oriented to person. Cardiovascular: Patient's skin is warm and dry. Respiratory: Airway is patent Respiratory effort is even, unlabored, Respiratory pattern is regular, symmetrical. Derm: Skin is fragile, Skin is pink, warm \T\ dry. Musculoskeletal: Capillary refill < 3 seconds. 19:59 Reassessment: Patient and/or family updated on plan of care and expected duration. Pain ea level reassessed. Report called to Barbara MIRANDA Axel . 20:30 Reassessment: Pt alert to self, respirations equal and unlabored, chest expansion even ea and symmetrical. No s/s of pain or discomfort noted at this time. 21:40 Reassessment: Pt alert and oriented to self, respirations even and unlabored. Chest ea expansions even and symmetrical. No s/s of pain or discomfort noted at this time. Report given to EMS. Pt left ED via stretcher per EMS. Pt tolerating well. Vital Signs: 15:42 BP 159 / 50; Pulse 64; Resp 18; Temp 98.3(TE); Pulse Ox 97% on R/A; Weight 50.8 kg (R); dm5 Height 5 ft. 1 in. (154.94 cm); 18:07 BP 185 / 61; Pulse 69; Resp 16; Pulse Ox 99% on R/A; em 19:30 BP 173 / 53; Pulse 73; Resp 18; Pulse Ox 100% on R/A; ea 20:30 BP 161 / 63; Pulse 79; Resp 18; Temp 98.2; Pulse Ox 97% ; ea 21:30 BP 179 / 67; Pulse 82; Resp 18; Pulse Ox 100% ; ea 15:42 Body Mass Index 21.16 (50.80 kg, 154.94 cm) 5 ED Course: 15:28 Patient arrived in ED. mr 15:28 Trae Casillas MD is Private Physician. mr 15:42 Triage completed. dm5 16:40 Hai Barry, RN is Primary Nurse. em 16:56 Patient has correct armband on for positive identification. Placed in gown. Bed in low em position. Call light in reach. Adult w/ patient. Pulse ox on. NIBP on. 17:01 Arm band placed on. em 17:05 Florentino Bird PA is PHCP. [facility] 17:05 Tan Hester MD is Attending Physician. jmm 17:32 Pelvis XRAY In Process Unspecified. EDMS 17:32 Hip Left 2 View XRAY In Process Unspecified. EDMS 17:32 XRAY Chest (1 view) In Process Unspecified. EDMS 17:40 CT Head C Spine In Process Unspecified. EDMS 17:40 CT Stone Protocol In Process Unspecified. EDMS 17:50 Initial lab(s) drawn, by mn, sent to lab. Inserted saline lock: 20 gauge in right aa5 antecubital area, using aseptic technique. Blood collected. 18:00 EKG done, by ED staff, reviewed by Florentino CANCINO. 3 20:00 No provider procedures requiring assistance completed. Patient admitted, IV remains in ea place. Administered Medications: No medications were administered Outcome: 20:01 Instructed on the need for admit, Demonstrated understanding of instructions. ea 20:17 ER care complete, transfer ordered by . [facility] 21:40 Transferred by ground EMS to [facility], Transfer form completed. X-rays sent ea w/ patient. 21:40 Condition: stable 21:45 Patient left the ED. ea Signatures: Dispatcher [employer] Raven Magaña, RUTH RN [facility] Florentino Bird PA PA Shruti Thakur mr Hai Barry, RN RN em Yumiko Ordoñez RN RN [facility] Vianey Evans [facility] Gaye Hazel RN RN ea Corrections: (The following items were deleted from the chart) 18:11 16:40 Yumiko Ordoñez RN is Primary Nurse. [facility] 18:13 18:12 Primary Nurse role handed off by Yumiko Ordoñez RN [facility] 18:13 18:12 Hai Barry RN is Primary Nurse. [facility] 21:09 19:59 Reassessment: Patient and/or family updated on plan of care and expected ea duration. Pain level reassessed. Patient is alert, oriented x 3, equal unlabored respirations, skin warm/dry/pink. Report called to Barbara MIRANDA [facility] ER ea
[2019-08-12 22:53] VITALS: TEMP 98.2
[2019-08-12 22:54] VITALS: BP 179/67; O2SAT 100
--- NOTE | 2019-08-14 14:04 | EKG ---
Test Date: 2019-08-12 Test Time: 18:00:26 Social Director: VALERIA MEASUREMENT RESULTS: Intervals: Rate: 70 MS: 172 QRSD: 66 QT: 366 QTc: 395 [place]: P: 56 MS: 172 QRS: 46 T: 59 INTERPRETIVE STATEMENTS: Normal sinus rhythm Normal ECG Compared to ECG 02/26/2019 10:50:20 Sinus bradycardia no longer present Electronically Signed On 08-14-19 13:59:41 TOOTH INSPECTOR by Raul Brown
== END 2019-08-12 21:45 | disposition short-term general hospital (02) ==
LOC: ER 15:24
DX: S72.92XA Unspecified fracture of left femur, initial encounter for closed fracture (principal); S32.050A Wedge compression fracture of fifth lumbar vertebra, initial encounter for closed fracture; W19.XXXA Unspecified fall, initial encounter; Y93.01 Activity, walking, marching and hiking; Y92.9 Unspecified place or not applicable; G30.9 Alzheimer's disease, unspecified; F02.80 Dementia in other diseases classified elsewhere, unspecified severity, without behavioral disturbance, psychotic disturbance, mood disturbance, and anxiety; Z88.0 Allergy status to penicillin
CPT/HCPCS: 36415; 70450; 71045; 72125; 72170; 74176; 76377; 80048; 80076; 83735; 83880; 84484; 85025; 85610; 93005; 99285

== ENCOUNTER 2019-08-20 18:10 | Emergency (ER) | payer OTHER ==
--- OUTSIDE RECORDS SUMMARY | 2019-08-20 18:13 | XMS REPORT ---
:1930 [facility] Organization [facility] Address [address] [place] [address] Dr. Owens [address] [place] [id number] Care Team Providers Name Role Phone Unavailable Unavailable Unavailable Problems This patient has no known problems. Allergies, Adverse Reactions, Alerts This patient has no known allergies or adverse reactions. Medications This patient has no known medications.
--- NOTE | 2019-08-20 20:22 | RAD REPORT ---
EXAM DESCRIPTION: RAD - Ankle Left 3 View - 08/20/2019 8:14 pm CLINICAL HISTORY: Pain;Swelling COMPARISON: No comparisons FINDINGS: Soft tissue swelling is seen about the ankle, greatest laterally. Diffuse osteopenia. Smal l calcaneal spurs are evident. No acute fracture evident.
--- NOTE | 2019-08-20 21:02 | ER ---
Nurse's Notes [facility] Name: Jazmyn Ennis Age: 89 yrs Sex: Female : 1930 Arrival Date: 08/20/2019 Time: 18:13 Bed 17 Private MD: Diagnosis: Local infection of the skin and subcutaneous tissue, unspecified-right gluteus;Contusion of left ankle Presentation: 08/20 18:25 Presenting complaint: Family noticed abscess on tailbone during diaper change today. hb Transition of care: patient was not received from another setting of care. Onset of symptoms was August 20, 2019. Risk Assessment: Do you want to hurt yourself or someone else? Patient reports no desire to harm self or others. Initial Sepsis Screen: Does the patient meet any 2 criteria? No. Patient's initial sepsis screen is negative. Does the patient have a suspected source of infection? No. Patient's initial sepsis screen is negative. Care prior to arrival: None. 18:25 Method Of Arrival: Wheelchair hb 18:25 Acuity: BUFFY 4 hb Historical: - Allergies: 18:26 PENICILLINS; hb - PMHx: 18:26 ADD/ADHD; Alzheimers; CAD; Dementia; High Cholesterol; hb - Immunization history:: Adult Immunizations up to date. - Coronavirus screen:: The patient has NOT traveled to [place], [place], or [place] in the past 14 days. The patient has NOT had contact with known/suspected case of Coronavirus? Proceed with normal triage procedures. - Social history:: Smoking status: Patient denies any tobacco usage or history of. - Ebola Screening: : No symptoms or risks identified at this time. Screenin:30 Abuse screen: Denies threats or abuse. Denies injuries from another. Nutritional wh screening: No deficits noted. Tuberculosis screening: No symptoms or risk factors identified. Fall Risk None identified. Assessment: 19:20 General: Appears in no apparent distress. Behavior is appropriate for age. Pain: Denies wh pain. Neuro: Level of Consciousness is awake, alert, obeys commands. Cardiovascular: Capillary refill < 3 seconds. Respiratory: Airway is patent Respiratory effort is even, unlabored, Respiratory pattern is regular, symmetrical. GI: Abdomen is flat, non-distended. : No signs and/or symptoms were reported regarding the genitourinary system. EENT: No signs and/or symptoms were reported regarding the EENT system. Derm: Skin is intact, is healthy with good turgor, Skin is pink, warm \T\ dry. normal. Musculoskeletal: Circulation, motion, and sensation intact. 20:50 Reassessment: Patient appears in no apparent distress at this time. No changes from previously documented assessment. Patient and/or family updated on plan of care and expected duration. Pain level reassessed. Patient is alert, oriented x 3, equal unlabored respirations, skin warm/dry/pink. Vital Signs: 18:26 BP 143 / 73; Pulse 72; Resp 16; Temp 97.4; Pulse Ox 100% on R/A; Weight 58.97 kg; Pain hb 0/10; 19:30 BP 168 / 64; Pulse 66; Resp 18; Pulse Ox 99% ; wh 20:45 BP 164 / 59; Pulse 68; Resp 18; Pulse Ox 99% ; ED Course: 18:13 Patient arrived in ED. jg7 18:26 Triage completed. 18:26 Arm band placed on. 19:14 Juan Sagastume NP is PHCP. pm1 19:14 Jose Enrique Amos MD is Attending Physician. pm1 19:17 Emeli Austin is Primary Nurse. 19:30 Patient has correct armband on for positive identification. Bed in low position. Call light in reach. Side rails up X 1. Pulse ox on. NIBP on. 20:14 Ankle Left 3 View XRAY In Process Unspecified. EDMS 21:10 No provider procedures requiring assistance completed. Patient did not have IV access during this emergency room visit. Administered Medications: No medications were administered Outcome: 21:01 Discharge ordered by . pm1 21:10 Discharged to home via wheelchair, with family. 21:10 Condition: stable 21:10 Discharge instructions given to patient, family, Instructed on discharge instructions, follow up and referral plans. medication usage, POC Demonstrated understanding of instructions, follow-up care, medications, POC Prescriptions given X 2. 21:20 Patient left the ED. Signatures: Dispatcher [employer] EDMS Juan Sagastume, KASSANDRA SUPERVISOR [employer]BBING pm1 Carmen Stahl RN RN Emeli Austin Hayley Fam jg7
--- NOTE | 2019-08-20 21:02 | EDPHYS ---
Physician Documentation [facility] Name: Jazmyn Ennis Age: 89 yrs Sex: Female : 1930 Arrival Date: 08/20/2019 Time: 18:13 Bed 17 Private MD: ED Physician Jose Enrique Amos HPI: 08/20 19:26 This 89 yrs old Female presents to ER via Wheelchair with complaints of BUMP pm1 ON TAILBONE. 19:26 Onset: The symptoms/episode began/occurred today. pm1 19:26 the patient presents with a swollen area of the right gluteus stefano. Description: pm1 raised. Possible cause(s): unknown. Associated signs and symptoms: Pertinent negatives: discharge, drainage, fever. Severity of symptoms: in the emergency department the symptoms are unchanged. The patient has not experienced similar symptoms in the past. The patient has been recently seen at the [facility] Emergency Department, for unrelated complaints, Transferred one week ago to [facility] for lumbar fractures and left femur fracture. Discharged home with back brace and pain medications. No fracture to left femur. Family would also like the patient's left ankle evaluated too because there has been some swelling that has been present since the fall injury. Historical: - Allergies: 18:26 PENICILLINS; hb - PMHx: 18:26 ADD/ADHD; Alzheimers; CAD; Dementia; High Cholesterol; hb - Immunization history:: Adult Immunizations up to date. - Coronavirus screen:: The patient has NOT traveled to [place], [place], or [place] in the past 14 days. The patient has NOT had contact with known/suspected case of Coronavirus? Proceed with normal triage procedures. - Social history:: Smoking status: Patient denies any tobacco usage or history of. - Ebola Screening: : No symptoms or risks identified at this time. ROS: 19:26 Constitutional: Negative for fever, chills, and weight loss, Eyes: Negative for injury, pm1 pain, redness, and discharge, ENT: Negative for injury, pain, and discharge, Neck: Negative for injury, pain, and swelling, Cardiovascular: Negative for chest pain, palpitations, and edema, Respiratory: Negative for shortness of breath, cough, wheezing, and pleuritic chest pain, Abdomen/GI: Negative for abdominal pain, nausea, vomiting, diarrhea, and constipation. 19:26 Neuro: Negative for headache, weakness, numbness, tingling, and seizure. 19:26 Back: Positive for low back pain from fall injury. 19:26 MS/extremity: Positive for left ankle swelling and pain. 19:26 Skin: Positive for swelling to right buttocks. Exam: 19:26 Constitutional: This is a well developed, well nourished patient who is awake, alert, pm1 and in no acute distress. Head/Face: Normocephalic, atraumatic. Neck: Trachea midline, no thyromegaly or masses palpated, and no cervical lymphadenopathy. Supple, full range of motion without nuchal rigidity, or vertebral point tenderness. No Meningismus. Chest/axilla: Normal chest wall appearance and motion. Nontender with no deformity. No lesions are appreciated. Cardiovascular: Regular rate and rhythm with a normal S1 and S2. No gallops, murmurs, or rubs. Normal PMI, no JVD. No pulse deficits. Respiratory: Lungs have equal breath sounds bilaterally, clear to auscultation and percussion. No rales, rhonchi or wheezes noted. No increased work of breathing, no retractions or nasal flaring. Back: No spinal tenderness. No costovertebral tenderness. Full range of motion. 19:26 MS/ Extremity: Pulses equal, no cyanosis. Neurovascular intact. Full, normal range of motion. 19:26 Skin: Appearance: normal except for affected area, 2 cm x 1.5 cm phlegmon without any fluctuance, erythema, pointing or surrounding cellulitis. 19:26 Neuro: Orientation: is normal, Motor: is normal, moves all fours. 19:26 Musculoskeletal/extremity: Extremities: grossly normal except: noted in the left pm1 lateral ankle: swelling, and swelling to left heel. Vital Signs: 18:26 BP 143 / 73; Pulse 72; Resp 16; Temp 97.4; Pulse Ox 100% on R/A; Weight 58.97 kg; Pain hb 0/10; 19:30 BP 168 / 64; Pulse 66; Resp 18; Pulse Ox 99% ; wh 20:45 BP 164 / 59; Pulse 68; Resp 18; Pulse Ox 99% ; wh MDM: 19:14 Patient medically screened. pm1 21:00 Data reviewed: vital signs. Data interpreted: Pulse oximetry: on room air is 100 %. pm1 Interpretation: normal. Counseling: I had a detailed discussion with the patient and/or guardian regarding: the historical points, exam findings, and any diagnostic results supporting the discharge/admit diagnosis, radiology results, the need for outpatient follow up, to return to the emergency department if symptoms worsen or persist or if there are any questions or concerns that arise at home. 08/20 19:20 Order name: Ankle Left 3 View XRAY; Complete Time: 20:34 pm1 Administered Medications: No medications were administered Disposition: : Co-signature as Attending Physician, Jose Enrique Amos MD. rn Disposition: 08/20/19 21:01 Discharged to Home. Impression: Local infection of the skin and subcutaneous tissue, unspecified - right gluteus, Contusion of left ankle. - Condition is Stable. - Discharge Instructions: Contusion, Cellulitis, Adult. - Prescriptions for Bactroban 2 % Topical Ointment - Apply to affected area 1 application by TOPICAL route every 12 hours; 30 gram. Bactrim DS 800- 160 mg Oral Tablet - take 1 tablet by ORAL route every 12 hours for 10 days; 20 tablet. - Medication Reconciliation Form, Thank You Letter, Antibiotic Education, Prescription Opioid Use form. - Follow up: Emergency Department; When: As needed; Reason: Worsening of condition. Follow up: Private Physician; When: 2 - 3 days; Reason: Recheck today's complaints, Continuance of care, Re-evaluation by your physician. - Problem is new. - Symptoms have improved. Signatures: Dispatcher [employer] EDMS Jose nErique Amos MD MD rn Marinas, Patrick, NP SWIMMING [employer]OL CLEANER pm1 Carmen Stahl RN RN hb [place], Winsy wh Corrections: (The following items were deleted from the chart) 21:20 21:01 08/20/2019 21:01 Discharged to Home. Impression: Local infection of the skin and wh subcutaneous tissue, unspecified - right gluteus; Contusion of left ankle. Condition is Stable. Forms are Medication Reconciliation Form, Thank You Letter, Antibiotic Education, Prescription Opioid Use. Follow up: Emergency Department; When: As needed; Reason: Worsening of condition. Follow up: Private Physician; When: 2 - 3 days; Reason: Recheck today's complaints, Continuance of care, Re-evaluation by your physician. Problem is new. Symptoms have improved. pm1
[2019-08-20 21:26] VITALS: TEMP 97.4
[2019-08-20 21:27] VITALS: O2SAT 99
[2019-08-20 21:28] VITALS: BP 164/59
== END 2019-08-20 21:20 | disposition home or self-care (01) ==
LOC: ER 18:10
DX: L02.31 Cutaneous abscess of buttock (principal); L08.9 Local infection of the skin and subcutaneous tissue, unspecified; S80.02XA Contusion of left knee, initial encounter; W19.XXXA Unspecified fall, initial encounter; Y93.9 Activity, unspecified; Y92.9 Unspecified place or not applicable
CPT/HCPCS: 99283

== ENCOUNTER 2019-08-24 19:37 | Observation (INO) | payer OTHER ==
--- OUTSIDE RECORDS SUMMARY | 2019-08-24 19:39 | XMS REPORT ---
:1930 [facility] Address [address] [place] [address] Dr. Owens [address] [place] [id number] Care Team Providers Name Role Phone Unavailable Unavailable Unavailable Problems This patient has no known problems. Allergies, Adverse Reactions, Alerts This patient has no known allergies or adverse reactions. Medications This patient has no known medications.
--- NOTE | 2019-08-24 20:39 | ER ---
Nurse's Notes [facility] Name: Jazmyn Ennis Age: 89 yrs Sex: Female : 1930 Arrival Date: 08/24/2019 Time: 19:40 Bed 20 Private MD: Diagnosis: Cellulitis of left lower limb Presentation: 08/24 20:19 Presenting complaint: Mother states: L ankle swollen for about a week. The nurse from [address] says to come back here in the ER to have her checked again. She was here Thursday for the same thing but it has just gotten worse ever with the antibiotics and cream. Denies fever. Transition of care: patient was not received from another setting of care. Onset of symptoms was August 24, 2019. Risk Assessment: Do you want to hurt yourself or someone else? Patient reports no desire to harm self or others. Initial Sepsis Screen: Does the patient meet any 2 criteria? No. Patient's initial sepsis screen is negative. Does the patient have a suspected source of infection? No. Patient's initial sepsis screen is negative. Care prior to arrival: None. 20:19 Method Of Arrival: Wheelchair [facility] 20:19 Acuity: BUFFY 3 ca1 Historical: - Allergies: 20:22 PENICILLINS; ca1 - PMHx: 20:22 ADD/ADHD; Alzheimers; CAD; Dementia; High Cholesterol; ca1 - Immunization history:: Adult Immunizations up to date, Pneumococcal vaccine is up to date. - Coronavirus screen:: The patient has NOT traveled to [place], [place], or [place] in the past 14 days. The patient has NOT had contact with known/suspected case of Coronavirus?. - Social history:: Smoking status: Patient denies any tobacco usage or history of. - Ebola Screening: : Patient negative for fever greater than or equal to 101.5 degrees Fahrenheit, and additional compatible Ebola Virus Disease symptoms Patient denies exposure to infectious person Patient denies travel to an Ebola-affected area in the 21 days before illness onset No symptoms or risks identified at this time. Screenin:30 Abuse screen: Denies threats or abuse. Denies injuries from another. Nutritional wh screening: No deficits noted. Tuberculosis screening: No symptoms or risk factors identified. Fall Risk None identified. Assessment: 20:30 General: Appears in no apparent distress. Behavior is calm, Hx of Dementia and wh Alzheimers. Pain: Denies pain. Neuro: Level of Consciousness is awake, alert. Cardiovascular: Heart tones S1 S2. Respiratory: Airway is patent Respiratory effort is even, unlabored, Respiratory pattern is regular, symmetrical, Breath sounds are clear bilaterally. GI: Abdomen is flat, non-distended. : No signs and/or symptoms were reported regarding the genitourinary system. EENT: No signs and/or symptoms were reported regarding the EENT system. Derm: Skin is intact. Musculoskeletal: Circulation, motion, and sensation intact. 22:00 Reassessment: Patient appears in no apparent distress at this time. No changes from previously documented assessment. Patient and/or family updated on plan of care and expected duration. Pain level reassessed. Vital Signs: 20:22 BP 140 / 105; Pulse 75; Resp 19 S; Temp 98.8(O); Pulse Ox 100% on R/A; Weight 63.5 kg ca1 (R); Height 5 ft. 2 in. (157.48 cm) (R); 22:00 BP 161 / 83; Pulse 71; Resp 18; Pulse Ox 99% on R/A; wh 20:22 Body Mass Index 25.61 (63.50 kg, 157.48 cm) ca1 ED Course: 19:40 Patient arrived in ED. ag3 20:22 Triage completed. ca1 20:22 Arm band placed on right wrist. ca1 20:25 Carlos Torres MD is Attending Physician. tw4 20:28 Emeli Austin is Primary Nurse. wh 20:30 Patient has correct armband on for positive identification. Bed in low position. Call light in reach. Side rails up X 1. Adult w/ patient. Pulse ox on. NIBP on. 20:31 Trae Casillas MD is Hospitalizing Provider. tw4 21:45 Inserted saline lock: 22 gauge in left antecubital area, using aseptic technique. Blood collected. 22:13 No provider procedures requiring assistance completed. Patient admitted, IV remains in place. Administered Medications: 57 Drug: NS 0.9% 1000 ml Route: IV; Rate: 75 ml/hr; Site: left antecubital; 22:10 Follow up: Response: No adverse reaction; IV Status: Completed infusion :57 Drug: Cleocin 600 mg Route: IVPB; Infused Over: 30 mins; Site: left antecubital; 22:09 Follow up: Response: No adverse reaction; IV Status: Infusion continued upon admission Outcome: 20:32 Decision to Hospitalize by Provider. tw4 22:13 Admitted to Med/surg accompanied by tech, family with patient, via stretcher, room 203, with chart, Report called to Chelita Adame RN 22:13 Condition: stable 22:13 Instructed on the need for admit. 22:18 Patient left the ED. Signatures: Emeli Austin Carlos Torres MD MD tw4 Olga Norris 3 Bailey Gonzales, RN RN ca1
--- NOTE | 2019-08-24 20:39 | EDPHYS ---
Physician Documentation [facility] Name: Jazmyn Ennis Age: 89 yrs Sex: Female : 1930 Arrival Date: 08/24/2019 Time: 19:40 Bed 20 Private MD: ED Physician Carlos Torres HPI: 08/25 05:45 This 89 yrs old Female presents to ER via Wheelchair with complaints of tw4 swollen heel. 05:45 The patient presents with a deformity, swelling. The complaints affect the lateral tw4 aspect of left foot. Context: The problem was sustained at home. Onset: The symptoms/episode began/occurred today. Modifying factors: The symptoms are alleviated by nothing. the symptoms are aggravated by nothing. Severity of symptoms: At their worst the symptoms were moderate, in the emergency department the symptoms are unchanged. The patient has not experienced similar symptoms in the past. Historical: - Allergies: 08/24 20:22 PENICILLINS; ca1 - PMHx: 20:22 ADD/ADHD; Alzheimers; CAD; Dementia; High Cholesterol; ca1 - Immunization history:: Adult Immunizations up to date, Pneumococcal vaccine is up to date. - Coronavirus screen:: The patient has NOT traveled to [place], [place], or [place] in the past 14 days. The patient has NOT had contact with known/suspected case of Coronavirus?. - Social history:: Smoking status: Patient denies any tobacco usage or history of. - Ebola Screening: : Patient negative for fever greater than or equal to 101.5 degrees Fahrenheit, and additional compatible Ebola Virus Disease symptoms Patient denies exposure to infectious person Patient denies travel to an Ebola-affected area in the 21 days before illness onset No symptoms or risks identified at this time. ROS: 08/25 05:45 Constitutional: Negative for fever, chills, and weight loss, Eyes: Negative for injury, tw4 pain, redness, and discharge, Cardiovascular: Negative for chest pain, palpitations, and edema, Respiratory: Negative for shortness of breath, cough, wheezing, and pleuritic chest pain, Abdomen/GI: Negative for abdominal pain, nausea, vomiting, diarrhea, and constipation, Skin: Negative for injury, rash, and discoloration. MS/extremity: Positive for tenderness. Skin: Positive for Exam: 05:45 Constitutional: This is a well developed, well nourished patient who is awake, alert, tw4 and in no acute distress. Head/Face: Normocephalic, atraumatic. Chest/axilla: Normal chest wall appearance and motion. Nontender with no deformity. No lesions are appreciated. Cardiovascular: Regular rate and rhythm with a normal S1 and S2. No gallops, murmurs, or rubs. Normal PMI, no JVD. No pulse deficits. Respiratory: Lungs have equal breath sounds bilaterally, clear to auscultation and percussion. No rales, rhonchi or wheezes noted. No increased work of breathing, no retractions or nasal flaring. Abdomen/GI: Soft, non-tender, with normal bowel sounds. No distension or tympany. No guarding or rebound. No evidence of tenderness throughout. Back: No spinal tenderness. No costovertebral tenderness. Full range of motion. 05:45 Musculoskeletal/extremity: Extremities: noted in the heel of left foot: 05:49 Musculoskeletal/extremity: Extremities: erythema, pain, swelling, tenderness. tw4 Vital Signs: 08/24 20:22 BP 140 / 105; Pulse 75; Resp 19 S; Temp 98.8(O); Pulse Ox 100% on R/A; Weight 63.5 kg ca1 (R); Height 5 ft. 2 in. (157.48 cm) (R); 22:00 BP 161 / 83; Pulse 71; Resp 18; Pulse Ox 99% on R/A; wh 20:22 Body Mass Index 25.61 (63.50 kg, 157.48 cm) ca1 MDM: 20:25 Patient medically screened. tw4 08/25 05:48 Differential diagnosis: dislocation, closed fracture. Data reviewed: vital signs, tw4 nurses notes. Data interpreted: Pulse oximetry: Interpretation: normal. Test interpretation: by ED physician or midlevel provider: plain radiologic studies. Counseling: I had a detailed discussion with the patient and/or guardian regarding: the historical points, exam findings, and any diagnostic results supporting the discharge/admit diagnosis. Physician consultation: Trae Csaillas MD regarding admission, to the medical/surgical unit. patient's condition, and will see patient in inpatient room. Admission orders: after a detailed discussion of the patient's condition and case, the admit orders are written by me. Special discussion: I discussed with the patient/guardian in detail that at this point there is no indication for admission to the hospital. It is understood, however, that if the symptoms persist or worsen the patient needs to return immediately for re-evaluation. 08/24 20:37 Order name: CBC with Diff tw4 08/24 20:37 Order name: CMP tw4 08/24 21:11 Order name: Basic Metabolic Panel [facility] 08/24 21:11 Order name: Basic Metabolic Panel ED[facility] 08/24 21:11 Order name: CBC with Automated Diff [facility] 08/24 21:11 Order name: CBC with Automated Diff EDMS 08/24 21:11 Order name: Consistent Carb (ADA) [address] [facility] 08/24 21:11 Order name: EKG Electrocardiogram [facility] 08/24 21:11 Order name: EKG Electrocardiogram [facility] 08/24 21:11 Order name: Troponin I [facility] 08/24 21:11 Order name: Troponin I [facility] 08/24 21:11 Order name: Troponin I [facility] 08/24 21:11 Order name: EKG Electrocardiogram [facility] 08/24 21:11 Order name: EKG Electrocardiogram [facility] Administered Medications: 08/24 21:57 Drug: NS 0.9% 1000 ml Route: IV; Rate: 75 ml/hr; Site: left antecubital; 22:10 Follow up: Response: No adverse reaction; IV Status: Completed infusion 21:57 Drug: Cleocin 600 mg Route: IVPB; Infused Over: 30 mins; Site: left antecubital; 22:09 Follow up: Response: No adverse reaction; IV Status: Infusion continued upon admission Disposition: 08/24/19 20:32 Hospitalization ordered by Trae Casillas for Inpatient Admission. Preliminary diagnosis is Cellulitis of left lower limb. - Bed requested for Telemetry/MedSurg (Inpatient). - Status is Inpatient Admission. - Condition is Stable. - Problem is an ongoing problem. - Symptoms are unchanged. UTI on Admission? No Signatures: Dispatcher [employer] Ellen Camejo RN RN Emeli Velasquez Carlos Torres MD MD tw4 Bailey Gonzales RN RN ca1 Corrections: (The following items were deleted from the chart) 21:30 20:32 Hospitalization Ordered by Trae Casillas MD for Inpatient Admission. Preliminary diagnosis is Cellulitis of left lower limb. Bed requested for Telemetry/MedSurg (Inpatient). Status is Inpatient Admission. Condition is Stable. Problem is an ongoing problem. Symptoms are unchanged. UTI on Admission? No. tw4 22:18 21:30 08/24/2019 20:32 Hospitalization Ordered by Trae Casillas MD for Inpatient Admission. Preliminary diagnosis is Cellulitis of left lower limb. Bed requested for Telemetry/MedSurg (Inpatient). Status is Inpatient Admission. Condition is Stable. Problem is an ongoing problem. Symptoms are unchanged. UTI on Admission? No. dw
[2019-08-24] MEDS ORDERED: NA CHLORIDE 0.9% 1,000 ML ONE (22:00)
[2019-08-24] MEDS ORDERED: CLINDAMYCIN 600MG/D5W 600 MG/50 ML BAG IV ONE (22:00)
[2019-08-24 22:15] LABS: Absolute Lymphocytes (CBC) 0.9 K/uL (0.7-4.9); Basophils % 0.5 % (0-1.3); Hematocrit 32.2 % (36.0-45.0); MPV 8.5 fL (7.6-11.3); RBC Red Blood Cell Count 3.51 M/uL (3.86-4.86)
[2019-08-24 22:27] LABS: Albumin 3.1 g/dL (3.4-5.0); Bilirubin Total 0.5 mg/dL (0.2-1.0); Potassium 4.4 mmol/L (3.5-5.1); Protein, Total 7.5 g/dL (6.4-8.2)
[2019-08-24 22:36] VITALS: BMI 22.1
[2019-08-25 06:07] LABS: Absolute Lymphocytes (CBC) 0.9 K/uL (0.7-4.9); Basophils % 0.5 % (0-1.3); Hematocrit 28.5 % (36.0-45.0); Lymphocytes % 16.5 % (15.3-44.8); MPV 8.4 fL (7.6-11.3); RBC Red Blood Cell Count 3.12 M/uL (3.86-4.86)
[2019-08-25 06:15] LABS: Potassium 4.5 mmol/L (3.5-5.1)
[2019-08-25] MEDS ORDERED: FLEET ENEMA ADULT PR PRN (08:32)
[2019-08-25] MEDS: EXEMESTANE 25 MG PO SCH (09:00)
[2019-08-25] MEDS: SMZ./TMP. 800/160 MG TABLET PO SCH ×2 (09:35→21:04)
[2019-08-25] MEDS: GABAPENTIN 100 MG CAP PO SCH ×3 (09:35→21:04)
[2019-08-25] MEDS: CLOPIDOGREL 75 MG TABLET PO SCH (09:35)
[2019-08-25] MEDS: MEMANTINE HCL 10 MG TABLET PO SCH ×2 (09:36→21:04)
[2019-08-25] MEDS: PANTOPRAZOLE 40MG TABLET PO SCH (09:36)
[2019-08-25] MEDS: TIZANIDINE 4 MG TABLET PO PRN ×2 (09:47→21:04)
[2019-08-25] MEDS: MUPIROCIN 2% OINT 22GM TUBE TOP SCH ×2 (09:48→21:05)
[2019-08-25] MEDS: DOCUSATE NA/SENNA CONC 1 TAB PO SCH (21:03)
[2019-08-25] MEDS: OLANZapine 10 MG TABLET PO SCH (21:04)
[2019-08-25] MEDS: ATORVASTATIN 20 MG TAB PO SCH (21:04)
--- NOTE | 2019-08-25 21:25 | HP ---
Date of Admission: 08/24/2019 Chief Complaint: Poor mobility; recent fracture, spine. History Of Present Illness: An 89-year-old female who has advanced Alzheimer disease and unable to c ommunicate, was brought to the emergency room because of poor physical conditioning and redness of th e foot. The patient cannot give any meaningful history. According to the family, she recently fell and she was found to have fracture of spine for which she is getting physical therapy at home. The hong almonte's family claims that they are unable to take care of her at home anymore because of various re asons and they would like to get half-way placement or other pace of dealing with this issue. Past Medical History: Positive for hyperlipidemia, advanced Alzheimer disease, coronary artery disea se. Family History: Hypertension present. Personal History: The patient is being taken care of by daughter. Allergies: PENICILLIN. Home Medicines: Please refer to the chart. Review of Systems: The patient's family does not report any fever, chills, rigors. Physical Examination: General: Revealed grossly confused 89-year-old female, afebrile. HEENT: No evidence of head injury. Neck: Supple. JVD negative. Chest: Occasional wheezes. Heart: Regular. Abdomen: Soft. Extremities: There is old contusion and possible mild cellulitis. There is tenderness diffusely par ticularly over the lower part of the spine. Neurologic: The patient is grossly confused, however she is moving all extremities. Laboratory Data: White count normal. Hemoglobin 10.7. Chem profile essentially normal except for a lbumin of 3.1. Troponin normal. Assessment: 1.Recent fall and fractured spine. 2.Home physical therapy in progress. 3.Difficulty of the family members to deal with her care at home. 4.Recent contusion of the foot and mild cellulitis. 5.Advanced Alzheimer disease. 6.Known coronary artery disease. 7.Known hyperlipidemia. 8.Known hypertension. Plan: It is not clear, if the family cannot take care of her at home what could be done. Social Ser vice has been consulted for this reason. She is on oral Bactrim as there is no gross cellulitis. In view of her advanced Alzheimer disease and inability of family to take care of her, the best solutio n probably is a half-way placement. OBDULIA/CHAD Voice ID: [id number]
[2019-08-26] MEDS: EXEMESTANE 25 MG PO SCH (09:00)
[2019-08-26] MEDS: PANTOPRAZOLE 40MG TABLET PO SCH (09:57)
[2019-08-26] MEDS: GABAPENTIN 100 MG CAP PO SCH ×3 (09:57→20:05)
[2019-08-26] MEDS: CLOPIDOGREL 75 MG TABLET PO SCH (09:58)
[2019-08-26] MEDS: MEMANTINE HCL 10 MG TABLET PO SCH ×2 (09:58→20:05)
[2019-08-26] MEDS: SMZ./TMP. 800/160 MG TABLET PO SCH ×2 (09:58→20:07)
[2019-08-26] MEDS: MUPIROCIN 2% OINT 22GM TUBE TOP SCH ×2 (10:02→20:09)
--- NOTE | 2019-08-26 13:51 | EKG ---
Test Date: 2019-08-25 Test Time: 09:50:20 Cut Off Saw Set Up Operator: WILNER MEASUREMENT RESULTS: Intervals: Rate: 76 CA: 164 QRSD: 76 QT: 358 QTc: 402 Wells: P: 62 CA: 164 QRS: 46 T: 54 INTERPRETIVE STATEMENTS: Normal sinus rhythm Normal ECG Compared to ECG 08/12/2019 18:00:26 No significant changes Electronically Signed On 08-26-19 13:47:08 GARMENT EXAMINER by Raul Brown
[2019-08-26] MEDS ORDERED: LACTULOSE 20 GM/30 ML UCUP PO ONE (14:00)
[2019-08-26] MEDS ORDERED: FLEET ENEMA ADULT PR ONE (19:58)
[2019-08-26] MEDS: OLANZapine 10 MG TABLET PO SCH (20:08)
[2019-08-26] MEDS: DOCUSATE NA/SENNA CONC 1 TAB PO SCH (20:08)
[2019-08-26] MEDS: ATORVASTATIN 20 MG TAB PO SCH (20:08)
[2019-08-27 05:14] VITALS: TEMP 97.9
[2019-08-27 08:42] VITALS: BP 191/86
[2019-08-27] MEDS: EXEMESTANE 25 MG PO SCH (09:00)
[2019-08-27] MEDS: SMZ./TMP. 800/160 MG TABLET PO SCH (09:00)
[2019-08-27] MEDS: MUPIROCIN 2% OINT 22GM TUBE TOP SCH (09:00)
[2019-08-27] MEDS: PANTOPRAZOLE 40MG TABLET PO SCH (09:09)
[2019-08-27] MEDS: MEMANTINE HCL 10 MG TABLET PO SCH (09:09)
[2019-08-27] MEDS: CLOPIDOGREL 75 MG TABLET PO SCH (09:09)
[2019-08-27] MEDS: GABAPENTIN 100 MG CAP PO SCH (09:09)
[2019-08-27 09:51] VITALS: O2SAT 97
== END 2019-08-27 09:55 | disposition home or self-care (01) ==
LOC: ER 19:37 → ERHOLD 21:34 → INTOOBSV 21:34 → 2ND 22:09
PROVIDERS: ADMIT Internal Medicine; ATTEND Internal Medicine
DX: L03.119 Cellulitis of unspecified part of limb (principal); G30.9 Alzheimer's disease, unspecified; F02.80 Dementia in other diseases classified elsewhere, unspecified severity, without behavioral disturbance, psychotic disturbance, mood disturbance, and anxiety; I25.10 Atherosclerotic heart disease of native coronary artery without angina pectoris; E78.5 Hyperlipidemia, unspecified; I10 Essential (primary) hypertension; Z88.0 Allergy status to penicillin
CPT/HCPCS: 93005; 85025 ×2; 80048; 36415; 82947; 84484 ×2; 80053; 97112; 97116 ×2; 97161; 97530 ×2; 96374; 99285; G0378 ×6; J7030

== ENCOUNTER 2019-09-12 09:13 | Day surgery (SDC) | payer OTHER ==
--- OUTSIDE RECORDS SUMMARY | 2019-09-12 09:37 | XMS REPORT ---
:1930 Author Organization [facility] Address [address] [place] [address] Dr. Owens [address] [place] [id number] Care Team Providers Name Role Phone Unavailable Unavailable Unavailable Problems This patient has no known problems. Allergies, Adverse Reactions, Alerts This patient has no known allergies or adverse reactions. Medications This patient has no known medications.
[2019-09-12 09:42] LABS: Absolute Lymphocytes (CBC) 1.2 K/uL (0.7-4.9); Basophils % 0.5 % (0-1.3); Hematocrit 31.6 % (36.0-45.0); Lymphocytes % 22.5 % (15.3-44.8); MPV 8.2 fL (7.6-11.3); RBC Red Blood Cell Count 3.43 M/uL (3.86-4.86)
[2019-09-12] MEDS ORDERED: Ringers Lactate 1,000 ML IV ONE (09:44)
[2019-09-12] MEDS ORDERED: CIPROFLOXACIN 400mg IV 400 MG/200 ML BAG IV ONE (09:44)
[2019-09-12 10:01] LABS: Potassium 4.2 mmol/L (3.5-5.1)
--- NOTE | 2019-09-12 10:19 | RAD REPORT ---
EXAM DESCRIPTION: RAD - Chest Single View - 09/12/2019 9:51 am CLINICAL HISTORY: PREOP SAME DAY SURGERY ROOM 5 Chest pain. COMPARISON: Chest Single View dated 08/12/2019; Chest Single View dated 04/09/2018; Chest Single View dated 04/08/2018; Chest Pa And Lat (2 Views) dated 03/16/2018 FINDINGS: Portable technique limits examination quality. The lungs are grossly clear. The heart is normal in size. Tortuous and atherosclerotic thoracic aorta is noted.Evidence of prior right rotator cuff repair. IMPRESSION: No acute intrathoracic process suspected.
--- NOTE | 2019-09-12 11:23 | EKG ---
Test Date: 2019-09-12 Test Time: 09:40:15 Clin Nurse: WILNER MEASUREMENT RESULTS: Intervals: Rate: 67 FL: 156 QRSD: 74 QT: 396 QTc: 418 Platter: P: 48 FL: 156 QRS: 45 T: 68 INTERPRETIVE STATEMENTS: Normal sinus rhythm Normal ECG Compared to ECG 08/25/2019 09:50:20 No significant changes Electronically Signed On 09-12-19 11:22:32 GENETICS TEACHER by Ravinder Aaron
[2019-09-12] MEDS ORDERED: ONDANSETRON 4 MG/2 ML VIAL ONE (12:43)
[2019-09-12] MEDS ORDERED: propofoL 200 MG/20 ML VIAL IV ONE (12:43)
[2019-09-12] MEDS ORDERED: LIDOCAINE 2% MPF 5 ML VIAL ONE (12:43)
[2019-09-12] MEDS ORDERED: FENTANYL CITR 100 MCG/2 ML ONE (12:43)
[2019-09-12] MEDS ORDERED: EPHEDRINE SULF 50 MG/ML VIAL ONE (12:51)
[2019-09-12] MEDS ORDERED: BUPIVACAINE 0.5% PF 10 ML VIAL ONE (12:58)
[2019-09-12] MEDS ORDERED: Phenylephrine HCl 10 MG/ML 1 ML VIAL ONE (13:21)
--- NOTE | 2019-09-12 13:46 | P.BOP ---
Preoperative diagnosis: left heel necrotic decubitus ulcer Postoperative diagnosis: same Primary procedure: Excisional debridement of left heel necrotic decubitus ulcer 8 x 6 cm Estimated blood loss: <10cc Specimen: culture Findings: as above Anesthesia: General Complications: None Transferred to: Recovery Room Condition: Good
[2019-09-12 13:52] VITALS: O2SAT 100
[2019-09-12 15:21] VITALS: BP 107/46; TEMP 97.8
--- NOTE | 2019-09-13 01:06 | DS ---
Date of Discharge: 09/12/2019 Diagnosis: Left heel necrotic decubitus ulcer. Procedure: Excisional debridement of left heel necrotic decubitus ulcer, 8 x 6 cm. Disposition: Home. Activity: As tolerated. No heavy lifting. Instructions: Wet-to-dry dressing daily. If possible when they get their Santyl, it was Santyl wet- to-dry. It is important that she off-loads the area and follow up with the wound healing center in a week from now. TAB/CHAD Voice ID: [id number] Report ID: [id number]
--- NOTE | 2019-09-13 01:06 | OP ---
Date of Procedure: 09/12/2019 Surgeon: Marcos Arevalo MD Preoperative Diagnosis: Left heel necrotic decubitus ulcer. Postoperative Diagnosis: Left heel necrotic decubitus ulcer. Anesthesia: General plus local. Indications: This is the case of a lady comes to us with a necrotic left heel ulcer with hematoma pr esent and it was infected too. So, benefits and risks of excisional debridement were fully explained to the patient and the family, which included but are not limited, to infection, bleeding, damage to adjacent structures, anesthesia complication, recurrence, MA, and even . She also understands this may not relieve any of her symptoms. She might need more than one surgical intervention. The f norah fully understands the importance of appropriate nutrition and off-loading. They signed a conse nt. They also understand she will require dressing change at the end. Description Of Operation: Patient was brought to the operating room, placed in supine position. Ane sthesia was given without complication. A time-out was called. Left heel was prepped and draped in a sterile fashion. Using a sharp knife, we proceeded to remove the necrotic tissue over the area. C ultures were sent. The area was debrided and down to healthy tissue. Irrigation was done and after that was packed with wet-to-dry dressing. Patient tolerated the procedure well. Patient was sent to Recovery in stable condition. TAB/CHAD Voice ID: [id number] Report ID: [id number]
== END 2019-09-12 15:15 | disposition home or self-care (01) ==
LOC: OR 09:13
PROVIDERS: ATTEND Surgery
PROC: 0HBNXZZ Excision of Left Foot Skin, External Approach (ICD-10-PCS; principal; 2019-09-12 14:00)
DX: I96 Gangrene, not elsewhere classified (principal); L89.624 Pressure ulcer of left heel, stage 4; I25.10 Atherosclerotic heart disease of native coronary artery without angina pectoris; G30.9 Alzheimer's disease, unspecified; F02.80 Dementia in other diseases classified elsewhere, unspecified severity, without behavioral disturbance, psychotic disturbance, mood disturbance, and anxiety; K21.9 Gastro-esophageal reflux disease without esophagitis; Z79.02 Long term (current) use of antithrombotics/antiplatelets; Z88.0 Allergy status to penicillin; Z95.5 Presence of coronary angioplasty implant and graft; Z90.11 Acquired absence of right breast and nipple; Z80.3 Family history of malignant neoplasm of breast; Z80.0 Family history of malignant neoplasm of digestive organs; Z83.3 Family history of diabetes mellitus; Z82.49 Family history of ischemic heart disease and other diseases of the circulatory system
CPT/HCPCS: 93005; 87070; 85025; 80048; 36415; 87205; 87075; 71045; 97597; 97598 ×2; J2704; J2370; J3010; J7120; J2405; J0744

== ENCOUNTER 2019-11-08 12:22 | Inpatient (IN) | payer OTHER ==
[2019-11-08 12:37] LABS: Absolute Lymphocytes (CBC) 0.6 K/uL (0.7-4.9); Basophils % 0.3 % (0-1.3); Lymphocytes % 4.6 % (15.3-44.8); MPV 7.8 fL (7.6-11.3); RBC Red Blood Cell Count 3.18 M/uL (3.86-4.86)
[2019-11-08 12:47] LABS: Protime INR 1.2
--- OUTSIDE RECORDS SUMMARY | 2019-11-08 12:47 | XMS REPORT ---
:1930 Author Organization [facility] Address [address] [place] [address] Dr. Owens [address] [place] [id number] Care Team Providers Name Role Phone Unavailable Unavailable Unavailable Problems This patient has no known problems. Allergies, Adverse Reactions, Alerts This patient has no known allergies or adverse reactions. Medications This patient has no known medications.
[2019-11-08 12:57] LABS: ALT/SGPT 11 U/L (12-78); AST/SGOT 12 U/L (15-37); Alkaline Phosphatase 67 U/L (45-117); Amylase Level 26 U/L (25-115); BUN Blood Urea Nitrogen 14 mg/dL (7-18); Bicarbonate 29 mmol/L (21-32); Bilirubin Direct 0.4 mg/dL (0-0.2); Bilirubin Total 0.7 mg/dL (0.2-1.0); CKMB Creatine Kinase MB < 1.0 ng/mL (0.3-3.6); Creatine Phosphokinase 22 U/L (26-192); Glucose Level 94 mg/dL (74-106); Lipase 34 U/L (73-393); Potassium 4.1 mmol/L (3.5-5.1); Protein, Total 6.1 g/dL (6.4-8.2); Sodium Level 139 mmol/L (136-145); Troponin (Emerg Dept Use Only) < 0.02 ng/mL (0.0-0.045)
--- NOTE | 2019-11-08 13:01 | RAD REPORT ---
EXAM DESCRIPTION: CT - Head Brain Wo Cont - 11/08/2019 12:44 pm CLINICAL HISTORY: unresponsive COMPARISON: Head Brain Wo Cont dated 02/26/2019 TECHNIQUE: Axial 5 mm thick images of the head were obtained without IV contrast. All CT scans are performed using dose optimization technique as appropriate and may include automated exposure control or mA/KV adjustment according to patient size. FINDINGS: No intracranial hemorrhage, mass, edema or shift of mid-line structures. No acute cortical based infarction. No cortical edema or sulcal effacement. Prominent atrophy changes are present. Terry tricles are in proportion to the volume loss. No abnormal extra-axial fluid collections. Chronic isch emic changes are present. Asymmetry is created by significant head tilt. Intracranial findings are no t substantially different from comparison. Patient has non pneumatized for underpneumatized mastoid air cells. No middle ear opacification. Wax is seen in each external auditory canal. Paranasal sinuses are clear. No acute bony findings. IMPRESSION: Prominent atrophy and chronic ischemic changes similar to February 2019. No acute intracra nial finding.
[2019-11-08] MEDS ORDERED: NA CHLORIDE 0.9% 1,000 ML ONE ×2 (13:08→14:35)
--- NOTE | 2019-11-08 13:27 | RAD REPORT ---
EXAM DESCRIPTION: RAD - Chest Single View - 11/08/2019 12:51 pm CLINICAL HISTORY: md lawrence, unresponsive, code sepsis, hypotensive COMPARISON: Portable September 12 TECHNIQUE: AP portable chest image was obtained 11/08/2019 12:51 pm . FINDINGS: Lung volumes are low compared to the prior study. No peripheral mass or consolidation. Min imal edema or infiltrate in either lung base could be mass to the low lung volume. No significant diamond lure or volume overload. Heart size is normal and stable. Pulmonary vasculature within normal limits. Aortic dilatation match es comparison. No measurable pleural effusion and no pneumothorax. No acute bony abnormality seen. IMPRESSION: No acute cardiopulmonary process. Low lung volumes could potentially mask minimal edema or infiltrate. Aortic dilatation matches the comparison.
--- NOTE | 2019-11-08 13:34 | EDPHYS ---
Physician Documentation [facility] Name: Nela Ennis Age: 89 yrs Sex: Female : 1930 Arrival Date: 11/08/2019 Time: 12:23 Bed 3 Private MD: ED Physician Tan Hester HPI: 11/07 13:21 This 89 yrs old Female presents to ER via Stretcher with complaints of keegan Unresponsive. 13:21 The patient presents with cellulitis of the buttocks and left leg. Description: The keegan affected area is moderate sized, draining, right buttock/sacral decubitus, to bone, left heel decub as well. Onset: The symptoms/episode began/occurred 5 day(s) ago. Possible cause(s): unknown, pressure, long standing , worse , sent from wound care by dr mendez, admit, npo after midnight, surgery in am. Associated signs and symptoms: The patient has no apparent associated signs or symptoms. The patient presents with confusion, decreased mental status, decreased responsiveness, trouble concentrating. Possible causes: CVA or TIA, sepsis, decubitus. Associated signs and symptoms: Pertinent positives: nausea, weakness. Historical: - Allergies: 12:32 PENICILLINS; jl7 - PMHx: 12:32 ADD/ADHD; Alzheimers; CAD; Dementia; High Cholesterol; jl7 - Immunization history:: Adult Immunizations unknown. - Social history:: Smoking status: unknown. ROS: 13:24 Eyes: Negative for injury, pain, redness, and discharge, ENT: Negative for injury, keegan pain, and discharge, Neck: Negative for injury, pain, and swelling, Cardiovascular: Negative for chest pain, palpitations, and edema, Respiratory: Negative for shortness of breath, cough, wheezing, and pleuritic chest pain, Abdomen/GI: Negative for abdominal pain, nausea, vomiting, diarrhea, and constipation, : Negative for injury, bleeding, discharge, and swelling, Psych: Negative for depression, anxiety, suicide ideation, homicidal ideation, and hallucinations, Allergy/Immunology: Negative for hives, rash, and allergies, Endocrine: Negative for neck swelling, polydipsia, polyuria, polyphagia, and marked weight changes, Hematologic/Lymphatic: Negative for swollen nodes, abnormal bleeding, and unusual bruising. 13:24 Back: Positive for decreased range of motion, pain at rest, pain with movement. 13:24 MS/extremity: Positive for erythema, pain, swelling, tenderness, of the heel of left foot, decub dressed. 13:24 Skin: Positive for erythema, swelling, right buttock , sacral area, foul smelling. Exam: 13:24 Head/Face: Normocephalic, atraumatic. Eyes: Pupils equal round and reactive to light, keegan extra-ocular motions intact. Lids and lashes normal. Conjunctiva and sclera are non-icteric and not injected. Cornea within normal limits. Periorbital areas with no swelling, redness, or edema. ENT: Nares patent. No nasal discharge, no septal abnormalities noted. Tympanic membranes are normal and external auditory canals are clear. Oropharynx with no redness, swelling, or masses, exudates, or evidence of obstruction, uvula midline. Mucous membranes moist. Neck: Trachea midline, no thyromegaly or masses palpated, and no cervical lymphadenopathy. Supple, full range of motion without nuchal rigidity, or vertebral point tenderness. No Meningismus. Chest/axilla: Normal chest wall appearance and motion. Nontender with no deformity. No lesions are appreciated. Abdomen/GI: Soft, non-tender, with normal bowel sounds. No distension or tympany. No guarding or rebound. No evidence of tenderness throughout. Female : Normal external genitalia. 13:24 Constitutional: The patient appears in obvious distress, mildly distressed, moderately distressed. 13:24 Cardiovascular: Rate: tachycardic, Rhythm: regular, Pulses: Pulses are 4+ in bilateral radial, brachial, femoral, popliteal, posterior tibial and and dorsalis pedis arteries.. Heart sounds: normal, Edema: is not appreciated, JVD: is not appreciated. 13:24 Back: pain, ROM is painful, normal spinal alignment noted, CVA tenderness, is absent, vertebral tenderness, is not appreciated. 13:24 Musculoskeletal/extremity: ROM: limited active range of motion due to pain, limited passive range of motion due to pain, Circulation is intact in all extremities. decreased sensation, Compartment Syndrome exam of affected extremity: is normal. DVT Exam: negative Homans' sign noted on exam, no appreciated bluish discoloration, pain, swelling, tenderness, erythema, increased warmth, that is mild, of the right leg, of the left leg, of the buttocks and left foot. 13:34 ECG was reviewed by the Attending Physician. [facility] Vital Signs: 12:26 BP 98 / 46; Pulse 92; Resp 21 S; Temp 99.6(R); Pulse Ox 96% on R/A; Weight 38.56 kg; jl7 13:08 BP 165 / 60; Pulse 100; Resp 16 S; Pulse Ox 96% on R/A; jl7 13:45 BP 163 / 63; Pulse 97; Resp 16 S; Pulse Ox 97% on R/A; jl7 14:30 BP 134 / 87; Pulse 97; Resp 17 S; Pulse Ox 100% on R/A; jl7 MDM: 12:38 Patient medically screened. [facility] 13:27 Data reviewed: vital signs, nurses notes, lab test result(s), EKG, radiologic studies, [facility] CT scan, plain films. 13:34 Differential diagnosis: abscess, cellulitis. Differential Diagnosis sepsis. ED course: [facility] pt worked up, dr mendez notified, dr capps notified to admit, npo after midnight was expressed to him, pt stable andd awaiting a bed. 11/07 12:23 Order name: Amylase, Serum; Complete Time: 13: 11/07 12:23 Order name: Basic Metabolic Panel; Complete Time: 13:28 [facility] 11/07 12:23 Order name: Blood Culture Adult (2) 11/07 12:23 Order name: CBC with Diff; Complete Time: 13:28 11/07 12:23 Order name: Ckmb; Complete Time: 13:28 11/07 12:23 Order name: CPK; Complete Time: 13:28 11/07 12:23 Order name: Lactate; Complete Time: 13:28 11/07 12:23 Order name: LFT's; Complete Time: 13:28 [facility] 11/07 12:23 Order name: Lipase; Complete Time: 13:28 11/07 12:23 Order name: Procalcitonin; Complete Time: 13:28 11/07 12:23 Order name: Protime (+inr); Complete Time: 13:28 11/07 12:23 Order name: Ptt, Activated; Complete Time: 13:28 11/07 12:23 Order name: Troponin (emerg Dept Use Only); Complete Time: 13:28 [facility] 11/07 12:23 Order name: Urine Microscopic Only [facility] 11/07 12:23 Order name: Chest Single View XRAY [facility] 11/07 12:23 Order name: Accucheck; Complete Time: 12:24 [facility] 11/07 12:23 Order name: Cardiac monitoring; Complete Time: 12:24 [facility] 11/07 12:23 Order name: EKG - Nurse/Tech; Complete Time: 14:49 [facility] 11/07 12:24 Order name: CT Head Brain wo Cont; Complete Time: 13:28 [facility] 11/07 12:26 Order name: glucometer results - FOR PT WITH NO ID [facility] 11/07 13:20 Order name: Urine Culture keegan 11/07 13:20 Order name: Sed Rate keegan 11/07 13:59 Order name: EKG Electrocardiogram EDMS 11/07 13:59 Order name: EKG Electrocardiogram EDMS 11/07 15:22 Order name: Urine Dipstick--Ancillary (enter results) 11/07 12:23 Order name: IV Saline Lock - Large Bore; Complete Time: 12:24 [facility] 11/07 12:23 Order name: Labs collected and sent; Complete Time: 12:24 [facility] 11/07 12:23 Order name: O2 Per Protocol; Complete Time: 12:24 [facility] 11/07 12:23 Order name: O2 Sat Monitoring; Complete Time: 12:24 [facility] 11/07 12:23 Order name: Urine Dipstick-Ancillary (obtain specimen); Complete Time: 15:37 [facility] 11/07 13:34 Order name: Labs - recollect needed: recollect c7; Complete Time: 14:30 bd EC:34 Rate is 88 beats/min. Rhythm is regular. QRS [place] is Normal. ME interval is normal. QRS keegan interval is normal. QT interval is normal. No Q waves. T waves are Normal. No ST changes noted. Administered Medications: 12:40 Drug: NS 0.9% (30 ml/kg) 30 ml/kg Route: IV; Rate: bolus; Site: right forearm; [facility] 13:45 Follow up: Response: No adverse reaction; IV Status: Completed infusion; IV Intake: [facility] 1200ml 14:20 Drug: Meropenem 1 grams Route: IV; Rate: per protocol; Site: left forearm; jl7 15:15 Follow up: Response: No adverse reaction; IV Status: Completed infusion 14:20 Drug: NS 0.9% 1000 ml Route: IV; Rate: 100 ml/hr; Site: left forearm; 7 16:09 Follow up: Response: No adverse reaction; IV Status: Infusion continued upon admission jl7 14:30 Drug: Tylenol Suppository 500 mg Route: ME; jl7 15:16 Follow up: Response: No adverse reaction 7 15:15 Drug: vancoMYCIN 20 mg/kg Route: IVPB; Site: left forearm; jl7 16:10 Follow up: Response: No adverse reaction; IV Status: Infusion continued upon admission 7 Disposition: 11/08/19 13:33 Hospitalization ordered by Prince Tyler for Inpatient Admission. 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 - Bed requested for Telemetry/MedSurg (Inpatient). - Status is Inpatient Admission. [facility] - Condition is Fair. - Problem is new. - Symptoms have improved. Signatures: Dispatcher [employer] EDMS Chika Carter Diana, RN RN dw Anderson, Corey, MD MD cha Leal, Jahala, RN RN jl7 Corrections: (The following items were deleted from the chart) 15:29 13:33 Hospitalization Ordered by Prince Tyler HERNANDEZ for Inpatient Admission. 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 Bed requested for Telemetry/MedSurg (Inpatient). Status is Inpatient Admission. Condition is Fair. Problem is new. Symptoms have improved. [facility] 16:10 15:29 11/08/2019 13:33 Hospitalization Ordered by Prince Tyler HERNANDEZ for Inpatient 7 Admission. 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 Bed requested for Telemetry/MedSurg (Inpatient). Status is Inpatient Admission. Condition is Fair. Problem is new. Symptoms have improved.
--- NOTE | 2019-11-08 13:34 | ER ---
Nurse's Notes [facility] Name: Nela Ennis Age: 89 yrs Sex: Female : 1930 Arrival Date: 11/08/2019 Time: 12:23 Bed 3 Private MD: Diagnosis: Dementia in other diseases classified elsewhere;Weakness;Pressure ulcer of buttock-sacrum infected stage 4;Pressure ulcer-left heel;Anemia, unspecified Presentation: 11/07 12:26 Chief complaint: Brigitte from wound care reports pt's daughter dropped her off for wound jl7 care and pt was in her wheelchair, daughter reported "She's sleeping." Pt only responds to painful stimuli. Coronavirus screen: Patient denies a cough. Patient denies shortness of breath or difficulty breathing. Patient denies measured and/or subjective temperature greater than 100.4F prior to today's visit. Patient denies travel on a cruise ship or to a country the [facility] currently lists as an affected area. Patient denies contact with known and/or suspected case of COVID-19. Ebola Screen: No symptoms or risks identified at this time. Initial Sepsis Screen: Does the patient meet any 2 criteria? RR > 20 per min. Altered Mental Status. Does the patient have a suspected source of infection? Yes: Skin breakdown/wound. Risk Assessment: Do you want to hurt yourself or someone else? Patient reports no desire to harm self or others. Onset of symptoms is unknown. 12:26 Method Of Arrival: Stretcher jl7 12:26 Acuity: BUFFY 2 jl7 12:35 Note Pt's daughter states "she woke up this morning and I gave medicines and on our way aa5 to the wound care center she started doozing off". Pt's daughter reports giving tramadol and gabapentin this morning. Triage Assessment: 12:30 General: Appears distressed, uncomfortable, slender, Behavior is unresponsive. Pain: jl7 Unable to use pain scale. Patient is unresponsive. withdraws from painful stimuli. Neuro: Level of Consciousness is unresponsive. Cardiovascular: Heart tones present Patient's skin is warm and dry. Respiratory: Airway is patent Respiratory effort is even, unlabored, Respiratory pattern is symmetrical, tachypnea. Derm: Skin is pink, warm \\T\\ dry. Historical: - Allergies: 12:32 PENICILLINS; jl7 - PMHx: 12:32 ADD/ADHD; Alzheimers; CAD; Dementia; High Cholesterol; jl7 - Immunization history:: Adult Immunizations unknown. - Social history:: Smoking status: unknown. Screenin:08 Abuse screen: unable to assess. Nutritional screening: unable to assess. Tuberculosis jl7 screening: No symptoms or risk factors identified. Fall Risk No fall in past 12 months (0 pts). Secondary diagnosis (15 points) Alzheimer's, dementia, IV access (20 points). Ambulatory Aid- None/Bed Rest/Nurse Assist (0 pts). Gait- Weak (10 pts.). Mental Status- Overestimates/Forgets Limitations (15 pts.). Total Nice Fall Scale indicates High Risk Score (45 or more points). Fall prevention measures have been instituted. Side Rails Up X 2 Placed Close to Nursing Station Frequent Obs/Assessments Occuring Family Present and informed to notify staff if the need to leave the bedside As available patient and family educated on Fall Prevention Program and Strategies. Assessment: 12:30 General: See triage assessment. jl7 13:06 Reassessment: Daughter at bedside, states "I always give her tramadol and gabapentin jl7 before wound care and she always sleeps real heavy like this.". 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 14:30 Reassessment: Pt spontaneously opening her eyes. Pt's daughter reports she is at jl7 baseline. Vital Signs: 12:26 BP 98 / 46; Pulse 92; Resp 21 S; Temp 99.6(R); Pulse Ox 96% on R/A; Weight 38.56 kg; jl7 13:08 BP 165 / 60; Pulse 100; Resp 16 S; Pulse Ox 96% on R/A; jl7 13:45 BP 163 / 63; Pulse 97; Resp 16 S; Pulse Ox 97% on R/A; jl7 14:30 BP 134 / 87; Pulse 97; Resp 17 S; Pulse Ox 100% on R/A; jl7 ED Course: 12:20 Inserted saline lock: 20 gauge in right forearm, using aseptic technique. Blood jl7 collected. 12:20 Initial lab(s) drawn, by ut, sent to lab. First set of blood cultures drawn by me. jl7 12:23 Patient arrived in ED. jl7 12:25 David Grewal, RUTH is Primary Nurse. jl7 12:25 Inserted saline lock: 20 gauge in left forearm, using aseptic technique. Blood aa5 collected. 12:25 Second set of blood cultures drawn by me. aa5 12:31 Triage completed. jl7 12:32 Arm band placed on right wrist. jl7 12:38 Tan Hester MD is Attending Physician. keegan 12:44 CT Head Brain wo Cont In Process Unspecified. EDMS 12:50 Chest Single View XRAY In Process Unspecified. EDMS 13:08 Patient has correct armband on for positive identification. Placed in gown. Bed in low jl7 position. Call light in reach. Side rails up X2. Adult w/ patient. well flow operator on. Pulse ox on. NIBP on. Warm blanket given. 13:29 Prince Scott MD is Hospitalizing Provider. keegan 14:53 Lab(s) recollected, by me, sent to lab. Urine collected: Leone catheter specimen, clear.jl7 16:08 No provider procedures requiring assistance completed. Patient admitted, IV remains in jl7 place. intact, No redness/swelling at site. Administered Medications: 12:40 Drug: NS 0.9% (30 ml/kg) 30 ml/kg Route: IV; Rate: bolus; Site: right forearm; jl7 13:45 Follow up: Response: No adverse reaction; IV Status: Completed infusion; IV Intake: jl7 1200ml 14:20 Drug: Meropenem 1 grams Route: IV; Rate: per protocol; Site: left forearm; jl7 15:15 Follow up: Response: No adverse reaction; IV Status: Completed infusion jl7 14:20 Drug: NS 0.9% 1000 ml Route: IV; Rate: 100 ml/hr; Site: left forearm; jl7 16:09 Follow up: Response: No adverse reaction; IV Status: Infusion continued upon admission jl7 14:30 Drug: Tylenol Suppository 500 mg Route: UT; jl7 15:16 Follow up: Response: No adverse reaction jl7 15:15 Drug: vancoMYCIN 20 mg/kg Route: IVPB; Site: left forearm; jl7 16:10 Follow up: Response: No adverse reaction; IV Status: Infusion continued upon admission jl7 Intake: 13:45 IV: 1200ml; Total: 1200ml. jl7 Outcome: 13:33 Decision to Hospitalize by Provider. keegan 16:08 Admitted to Med/surg accompanied by tech, family with patient, via stretcher, room 208, jl7 with chart, Report called to RUTH Mccray 16:08 Condition: stable 16:08 Discharge instructions given to patient, family, Instructed on the need for admit, Demonstrated understanding of instructions. 16:10 Patient left the ED. [email or web address] Signatures: Dispatcher [employer] Tan Mota MD MD cha Calderon, Audri, RN RN aa5 David Grewal, RN RN jl7
[2019-11-08] MEDS ORDERED: ACETAMINOPHEN 650MG/RECT SUPP PR ONE (14:34)
[2019-11-08] MEDS ORDERED: VANCOMYCIN 750 MG in NA CHLORIDE 0.9% 150 ML IVPB ONE (15:00)
[2019-11-08] MEDS ORDERED: TRAMADOL HCL 50 MG TAB PO PRN (16:13)
[2019-11-08] MEDS ORDERED: CODEINE 30MG/APAP 300MG TAB PO PRN (16:13)
[2019-11-08] MEDS ORDERED: TIZANIDINE HCL 2 MG PO PRN (16:13)
[2019-11-08] MEDS ORDERED: LACTULOSE 20 GM/30 ML UCUP PO PRN (16:13)
[2019-11-08] MEDS ORDERED: HYDROMORPHONE HCL 1 MG/ML INJ IV PRN (16:15)
[2019-11-08] MEDS ORDERED: ACETAMINOPHEN 500 MG TAB PO PRN (16:15)
[2019-11-08] MEDS ORDERED: VANCOMYCIN/NS 1 gm 1 GM/250 ML BAG IVPB SCH (16:15)
[2019-11-08] MEDS ORDERED: ONDANSETRON 4 MG/2 ML VIAL IV PRN (16:15)
--- NOTE | 2019-11-08 16:21 | P.HP ---
Certification for Inpatient With expected LOS: >2 Midnights Patient will require the following post-hospital care: Home Health Services Practitioner: I am a practitioner with admitting privileges, knowledge of patient current condition, hospital course, and medical plan of care. Services: Services provided to patient in accordance with Admission requirements found in Title 42 Section 412.3 of the Code of Federal Regulations Patient History Date of Service: 11/08/19 Reason for admission: Decubitus wound, foul-smelling History of Present Illness: Paulette is a 89-year-old female with unknown past medical history of dementia, coronary disease status post stent in 2014, lumbar spine fracture decubitus ulcer after she became bed bound. She has undergone debridement a few months ago by Dr. Arevalo from surgery and subsequent followed up with wound care. She is brought in today by daughter due to worsening decubitus wound, which has become more purulent and foul-smelling over the past few days. Patient herself is a poor historian due to dementia. She is pending evaluation by surgery for possible debridement tomorrow. Allergies Penicillins Allergy (Severe, Verified 08/24/19 23:06) Shortness of breath Home medications list reviewed: Yes Home Medications: Atorvastatin Calcium [Lipitor*] 20 mg PO DAILY 08/25/19 Clopidogrel Bisulfate [Plavix*] 75 mg PO DAILY 08/25/19 Exemestane [Aromasin] 25 mg PO DAILY 08/25/19 Gabapentin [Neurontin*] 100 mg PO TID 08/25/19 Memantine HCl 10 mg PO BID 08/25/19 Mupirocin 1 juan alberto TL Q12HR 08/25/19 OLANZapine [Zyprexa*] 10 mg PO BEDTIME 08/25/19 Pantoprazole [Protonix Tab*] 40 mg PO DAILY 08/25/19 Sennosides/Docusate Sodium [Cvs Senna Plus Tablet] 2 tab PO BEDTIME 08/25/19 Tizanidine HCl [Zanaflex] 2 mg PO Q6H PRN 08/25/19 Tramadol HCl [Ultram] 1 tab PO Q6H PRN 08/25/19 Lactulose [Cephulac*] 30 ml PO QID PRN #30 ucup 08/26/19 Codeine/APAP [Tylenol W/Codeine #3 tab] 1 tab PO Q4HP PRN #15 tab 09/12/19 Collagenase [Santyl Ointment] 15 gm TP DAILY #1 tube 09/12/19 - Past Medical/Surgical History Diabetic: No -: dementia -: alzheimers -: CAD -: BLACK KNEE REPLACEMENT -: HEART STENTS -: RIGHT FEMUR SX - Family History Father -: Hypertension Sister -: Cancer - Social History Alcohol use: No CD- Drugs: No Caffeine use: Yes Review of Systems Unable to obtain ROS due to dementia Physical Examination - Physical Exam General: Cachectic, Mild distress, Confused HEENT: Atraumatic, Normocephalic Respiratory: Clear to auscultation bilaterally, Normal air movement Cardiovascular: No edema, Normal pulses, Regular rate/rhythm, Normal S1 S2 Gastrointestinal: Normal bowel sounds, Soft and benign, Non-distended Musculoskeletal: Other (Sacral decubitus ulcer, 1 inch round, of foul-smelling and packed with gauze. Serosanguineous drainage.) Integumentary: Skin breakdown Neurological: Dementia - Studies Laboratory Data (last 24 hrs) 11/08/19 12:21: PT 14.1 H, INR 1.20, APTT 28.2 11/08/19 12:21: WBC 13.6 H, Hgb 9.0 L, Hct 28.0 L, Plt Count 286 11/08/19 12:21: Sodium 139, Potassium 4.1, BUN 14, Creatinine 0.60, Glucose 94, Total Bilirubin 0.7, AST 12 L, ALT 11 L, Alkaline Phosphatase 67, Amylase 26, Lipase 34 L Assessment and Plan - Problems (Diagnosis) (1) Sacral decubitus ulcer, stage III Current Visit: No Status: Acute (2) Stage III pressure ulcer of left heel Current Visit: No Status: Acute (3) Weakness Onset Date: 04/12/18 Current Visit: No Status: Acute (4) Osteomyelitis Current Visit: Yes Status: Acute (5) Osteomyelitis Current Visit: Yes Status: Acute - Advance Directives Does patient have a Living Will: No Does patient have a Durable POA for Healthcare: Yes Physician Review Additional Text: Assessment Patient is a 89-year-old female with unknown past medical history of dementia, coronary disease and bed bound status complicated by decubitus ulcer. She present to the ER accompanied by daughter due to worsening wound infection and her sacral area. Site concerning osteomyelitis. Patient is staying in the hospital for surgical evaluation for possible debridement Osteomyelitis Stage 4 decubitus ulcer Coronary disease status post stent Dementia PLAN ADMIT TO THE HOSPITAL with TELEMETRY Continue vancomycin IV Consult surgery for debridement Multimodal pain regimen and bowel regimen Anti-emetics IV fluid infusion Resume all medication
[2019-11-08] MEDS ORDERED: TIZANIDINE 4 MG TABLET PO PRN (16:34)
[2019-11-08 16:36] VITALS: BMI 16.8
[2019-11-08] MEDS: D5 0.45 NS 1,000 ML IV SCH (17:11)
--- NOTE | 2019-11-08 17:24 | RAD REPORT ---
EXAM DESCRIPTION: CT - Abdomen Pelvis W Contrast - 11/08/2019 4:52 pm CLINICAL HISTORY: osteomyelitis COMPARISON: [facility] Protocol dated 08/12/2019; Head Brain Wo Cont dated 11/08/2019 TECHNIQUE: Biphasic, helical CT imaging of the abdomen and pelvis was performed following 100 ml non -ionic IV contrast. No oral contrast administered. All CT scans are performed using dose optimization technique as appropriate and may include automated exposure control or mA/KV adjustment according to patient size. FINDINGS: No suspicious findings in the lung bases. The liver, spleen, and pancreas show no suspicious findings. A 3.5 centimeter cyst midline left lobe liver and 1.5 centimeter cyst posterior right lobe liver not clearly different from earlier study. No suspicious characteristics. Portal vein enhances normally. Spleen and pancreas show no suspicious findings. There is pancreatic atrophy. Cholecystectomy clips are present. Intrahepatic and extrahepatic biliary tree dilatation are present. No mass or duct stone seen. Duct stones can be occult. The degree of dilatation is not clearly diffe rent from July. The biliary tree is much better visualized on the current study. This is probably reservoir effect that can develop after a cholecystectomy. Correlation is needed with any biliary obs tructive clinical or laboratory findings. Symmetric renal function is seen with no hydronephrosis or suspicious renal mass. No pyelonephritis o r acute parenchymal process. A 3.5 centimeter posterior mid left renal cyst present. A small 12 jayashree meter cyst is present in the lower right kidney. No adrenal abnormalities. Urinary bladder is fully c ontracted around a Leone catheter. No gastric dilatation or wall thickening. Moderate stool volume is present throughout the colon. No d ilated large or small bowel loops present. Diverticulosis is present. Active GI process is not seen. No free air, pneumatosis, free fluid or inflammatory stranding within the peritoneal or retroperitone al spaces. No hernia, mass or bulky lymphadenopathy. Advanced bony degenerative changes are present. Moderately large sacral wound is present right of mid line. Soft tissue loss extends down to the bone. Early bone erosive changes are present. This is cons istent with the osteomyelitis history. To the left of midline in the soft tissues near the inferior m ost sacral ala air densities are present in the soft tissues. No abscess or drainable fluid collectio n present. IMPRESSION: Decubitus ulceration to the right of midline at the sacrum with early erosive or bone lo ss changes identifiable. Several small air densities are present in the deep soft tissues inferior margin of the left sacral a la. No abscess or drainable fluid collection. Additional findings detailed in the report do not appear to be acute.
[2019-11-08 20:47] LABS: Urine Blood 1+ (NEG); Urine Glucose NEGATIVE (NEG); Urine Protein NEGATIVE (NEG); Urine Specific Gravity 1.025 (1.005-1.030)
[2019-11-08] MEDS: DOCUSATE NA/SENNA CONC 1 TAB PO SCH (21:00)
[2019-11-08] MEDS: OLANZapine 10 MG TABLET PO SCH (21:00)
[2019-11-08] MEDS: MEMANTINE HCL 10 MG TABLET PO SCH (21:00)
[2019-11-08] MEDS ORDERED: MUPIROCIN TL SCH (21:00)
[2019-11-09] MEDS: D5 0.45 NS 1,000 ML IV SCH ×3 (02:15→22:15)
[2019-11-09 04:39] LABS: Absolute Lymphocytes (CBC) 0.7 K/uL (0.7-4.9); Basophils % 0.5 % (0-1.3); Lymphocytes % 11.1 % (15.3-44.8); MPV 8.1 fL (7.6-11.3); RBC Red Blood Cell Count 2.47 M/uL (3.86-4.86)
[2019-11-09 04:50] LABS: BUN Blood Urea Nitrogen 12 mg/dL (7-18); Bicarbonate 28 mmol/L (21-32); Glucose Level 130 mg/dL (74-106); Potassium 3.3 mmol/L (3.5-5.1); Sodium Level 140 mmol/L (136-145)
[2019-11-09 06:03] LABS: Absolute Lymphocytes (CBC) 0.9 K/uL (0.7-4.9); Basophils % 0.6 % (0-1.3); Hematocrit 23.4 % (36.0-45.0); Lymphocytes % 12.3 % (15.3-44.8); MPV 8.2 fL (7.6-11.3); RBC Red Blood Cell Count 2.63 M/uL (3.86-4.86)
--- NOTE | 2019-11-09 07:56 | EKG ---
Test Date: 2019-11-08 Test Time: 12:33:28 Redrying Machine Operator: MOMO MEASUREMENT RESULTS: Intervals: Rate: 89 NM: 158 QRSD: 70 QT: 338 QTc: 411 [place]: P: 60 NM: 158 QRS: 38 T: 74 INTERPRETIVE STATEMENTS: Normal sinus rhythm Normal ECG Compared to ECG 09/12/2019 09:40:15 No significant changes Electronically Signed On 11-09-19 07:55:53 CDT by Raul Brown
--- NOTE | 2019-11-09 07:56 | EKG ---
Test Date: 2019-11-08 Test Time: 12:33:58 Technical Applications Specialist: MOMO MEASUREMENT RESULTS: Intervals: Rate: 88 MD: 160 QRSD: 68 QT: 346 QTc: 418 [place]: P: 58 MD: 160 QRS: 39 T: 71 INTERPRETIVE STATEMENTS: Normal sinus rhythm Normal ECG Compared to ECG 11/08/2019 12:33:28 No significant changes Electronically Signed On 11-09-19 07:55:52 CDT by Raul Brown
[2019-11-09] MEDS ORDERED: POTASSIUM CL 40 MEQ in NA CHLORIDE 0.9% 500 ML IV SCH (08:00)
[2019-11-09 08:13] LABS: Anisocytosis 2+; Blood Morphology Comment NOTED (NOT SEEN); Platelet Estimate ADEQ; Poikilocytosis 1+; Urine White Blood Cell Casts OK
[2019-11-09] MEDS: COLLAGENASE TP SCH (09:00)
[2019-11-09] MEDS: EXEMESTANE 25 MG PO SCH (09:00)
[2019-11-09] MEDS: MEMANTINE HCL 10 MG TABLET PO SCH ×2 (09:00→20:54)
--- NOTE | 2019-11-09 09:06 | P.PN ---
Subjective Date of Service: 11/09/19 Chief Complaint: Decubitus wound, foul-smelling Subjective: No new changes (Unable to obtain ROS due to patient's dementia) Physical Examination - Vital Signs Temperature: 96.9 F Blood Pressure: 95/47 Pulse: 49 Respirations: 9 Pulse Ox (%): 98 - Physical Exam General: Cachectic, Demented HEENT: Atraumatic, Normocephalic Respiratory: Clear to auscultation bilaterally, Normal air movement Cardiovascular: Normal pulses, Regular rate/rhythm, Normal S1 S2 Gastrointestinal: Normal bowel sounds, Soft and benign, Non-distended Integumentary: Other (Ecchymotic right upper extremity) Neurological: Dementia Urinary: Leone catheter - Studies Laboratory Data (last 24 hrs) 11/08/19 12:21: PT 14.1 H, INR 1.20, APTT 28.2 11/08/19 12:21: WBC 13.6 H, Hgb 9.0 L, Hct 28.0 L, Plt Count 286 11/08/19 12:21: Sodium 139, Potassium 4.1, BUN 14, Creatinine 0.60, Glucose 94, Total Bilirubin 0.7, AST 12 L, ALT 11 L, Alkaline Phosphatase 67, Amylase 26, Lipase 34 L Assessment & Plan - Problems (Diagnosis) (1) Sacral decubitus ulcer, stage III Current Visit: No Status: Acute (2) Stage III pressure ulcer of left heel Current Visit: No Status: Acute (3) Weakness Onset Date: 04/12/18 Current Visit: No Status: Acute (4) Osteomyelitis Current Visit: Yes Status: Acute (5) Osteomyelitis Current Visit: Yes Status: Acute Physician Review Additional Text: Assessment Patient is a 89-year-old female with unknown past medical history of dementia, coronary disease and bed bound status complicated by decubitus ulcer. She present to the ER accompanied by daughter due to worsening wound infection and her sacral area. Site concerning osteomyelitis. Blood cultures yielded gram negative rods Osteomyelitis Stage 4 decubitus ulcer Gram negative bacteremia Coronary disease status post stent Dementia PLAN Add meropenem today Continue vancomycin IV Called Surgery for debridement Multimodal pain regimen and bowel regimen Anti-emetics IV fluid infusion
[2019-11-09] MEDS: Meropenem 1,000 MG in NA CHLORIDE 0.9% 100 ML IV SCH ×2 (09:49→17:08)
[2019-11-09] MEDS ORDERED: NA CHLORIDE 0.9% 1,000 ML ONE (10:17)
[2019-11-09] MEDS ORDERED: FENTANYL CITR 100 MCG/2 ML ONE (11:16)
[2019-11-09] MEDS ORDERED: propofoL 200 MG/20 ML VIAL IV ONE (11:17)
--- NOTE | 2019-11-09 12:38 | P.BOP ---
Preoperative diagnosis: infected/necrotic stage 4 sacral, left heel ulcers, foul smelling Postoperative diagnosis: same Primary procedure: 1. Excisional debridement of stage 4 sacral infected/necrotic [id number] Secondary procedure: 2. Excisional debridement of stage 4 L heel infec robyn/necrotic 4x4x0.3cm Other procedure(s): 3. Pulse jet lavage sacral and decubitus ulcer Estimated blood loss: <10cc Specimen: necrotic tissue, culture Findings: see dictation Anesthesia: MAC Complications: None Transferred to: Recovery Room Condition: Good
--- NOTE | 2019-11-09 13:03 | ECHO ---
HEIGHT: 5 ft 1 in WEIGHT: 89 lb 0 oz DATE OF STUDY: 11/09/[address]: Raul Brown MD 2-DIMENSIONAL: YES M.MODE: YES DOPPLER: YES COLOR FLOW: YES TDS: NO PORTABLE: NO DEFINITY: NO BUBBLE STUDY: NO DIAGNOSIS: CORONARY ARTERY DIEASE, CLEARANCE CARDIAC HISTORY: CATHERIZATION: NO SURGERY: NO PROSTHETIC VALVE: NO PACEMAKER: NO MEASUREMENTS (cm) DIASTOLIC (NORMALS) SYSTOLIC (NORMALS) IVSd 0.9 (0.6-1.2) LA Diam 2.7 (1.9-4.0) LVEF 70% LVIDd 3.8 (3.5-5.7) LVIDs 2.3 (2.0-3.5) %FS 39% LVPWd 0.9 (0.6-1.2) Ao Diam 2.2 (2.0-3.7) 2 DIMENSIONAL ASSESSMENT: RIGHT ATRIUM: NORMAL LEFT ATRIUM: NORMAL RIGHT VENTRICLE: NORMAL LEFT VENTRICLE: NORMAL TRICUSPID VALVE: NORMAL MITRAL VALVE: NORMAL PULMONIC VALVE: NORMAL AORTIC VALVE: NORMAL PERICARDIAL EFFUSION: NONE AORTIC ROOT: NORMAL LEFT VENTRICULAR WALL MOTION: NORMAL DOPPLER/COLOR FLOW: NORMAL COMMENTS: NORMAL LEFT VENTRICULAR SIZE AND FUNCTION. MITRAL ANNULAR CALCIFICATION. AORTIC SCLEROSIS WITH NO STENOSIS. TECHNOLOGIST: Nimo PURI
--- NOTE | 2019-11-09 13:52 | CON ---
Date of Consultation: 11/08/2019 History Of Present Illness: This is the case of an 89-year-old patient [facility] due to the cubitus ulcers, weakness, dementia. The patient is living in a facility, found to lua ve foul-smelling sacral decubitus ulcer, so patient was [facility] and it shows foul smelling sacral and left heel decubitus ulcers. The family also stated that they noticed some changes with necrotic tissue present. They had some pictures and we also evaluated her and fou nd out she has infected ulcers with possible sepsis, so she was sent to the ER after discussing this with her primary doctor. Most of the information is obtained from the patient's power of assistant district attorney si randall I was with them on the phone, since they cannot come to the [facility] due to the natio nal emergency with coronavirus. Allergies: PENICILLIN. Medications: Reviewed including Plavix. Past Medical History: Dementia, alzheimer, coronary artery disease. Past Surgical History: Include knee replacement bilaterally and femur surgery. Family History: Noncontributory. She does not smoke. She does not drink alcohol. Review of Systems: Unable to be obtained. We discussed with the patient's family. Physical Examination: General: Patient is awake, not much of a help from her in the sense of answering questions, but at east she is cooperative the best she can. HEENT: Pupils are anicteric. Neck: Supple. Chest: Clear. Abdomen: Soft and depressible. No guarding or rebound. Integumentary: Patient has an infected sacral decubitus ulcer stage IV, necrotic tissue present, and foul smelling and needs deep debridement. We believe this patient may be having also osteomyelitis. Over the left heel patient also has an infected decubitus ulcer, not as bad as the sacrum, still ne eds debridement too. Laboratory Data: Blood work; WBC count 13.6. Hemoglobin 9.0. Platelets of 286. Assessment: This is 89-year-old patient with infected ulcers, foul-smelling, necrotic tissue present , unable to be done here at the [facility]. We discussed the case with the primary doctor since we believe this patient is getting septic from the infected ulcers. We note she is weak, she h as some comorbidities. We discussed with the patient and family since she was in the hospice and the family wanted the debridement to be done. I discussed the case with Dr. Byrd, we referred the patie nt into the emergency room since patient apparently is going to be admitted to the hospitalist. A se ptic workup will be done. We asked for the clearance from the medical doctors we need to clean this wound, it will be better to be done in a surgical setting where we have all the instruments that she needs include and pulse lavage. The benefits, alternatives, and risks of debridement of those 2 ulce rs were fully explained to the power of assistant district attorney, daughter, which include, but not limited to infecti on, bleeding, damage to adjacent structures, anesthesia complication, nonhealing wound, ND, and even . She also understands this may not relieve any symptoms, she might need more than one surgical intervention. Osteomyelitis workup should be done too. She may need long-term antibiotics. Offloa ding the patient is important too. TAB/CHAD Voice ID: [id number] Report ID: [id number]
[2019-11-09] MEDS ORDERED: GABAPENTIN 100 MG CAP PO SCH (14:00)
[2019-11-09] MEDS ORDERED: NA CHLORIDE 0.9% 250 ML ONE ×2 (15:34→16:23)
[2019-11-09 15:39] LABS: Urine Appearance CLEAR; Urine Bilirubin NEGATIVE (NEG); Urine Blood NEGATIVE (NEG); Urine Color DK YELLOW; Urine Glucose NEGATIVE (NEG); Urine Protein TRACE (NEG); Urine Specific Gravity >=1.030 (1.005-1.030)
[2019-11-09 16:25] LABS: Urine Amorphous Sediment 4+ /HPF (NONE SEEN); Urine Bacteria <20 /HPF (<20); Urine Culture Reflex Order NOT NEEDED; Urine Mucus 3+ /HPF (NONE SEEN); Urine RBC <5 /HPF (NONE SEEN)
[2019-11-09] MEDS ORDERED: Meropenem 1000 MG/VIAL IV SCH (17:00)
[2019-11-09] MEDS: VANCOMYCIN 750 MG in NA CHLORIDE 0.9% 150 ML IVPB SCH (17:10)
--- NOTE | 2019-11-09 20:31 | CON ---
Date of Consultation: 11/09/[address] Scott on 11/08/2019. I saw the patient on 11/09/2019. Reason For Consultation: Cardiac clearance for decubitus ulcer surgery by Dr. Arevalo. History Of Present Illness: Ms. Ennis is 89, has a history of dementia, Alzheimer's, coronary artery disease, dyslipidemia, attention deficit disorder. Was admitted with weakness, dementia, and found to have decubitus ulcers. There is a possible plan for surgery. I was asked to clear her. She does not have any cardiac symptoms. Denies shortness of breath, chest pain, nausea, vomiting, diaphoresi s. Denied PND, orthopnea, pedal edema, palpitation, or syncope. Past Medical History: As stated above. Allergies: PENICILLIN. Medications: At home include Lipitor, Plavix, Protonix, and Neurontin. Review of Systems: Negative. Social History: Negative. Family History: Noncontributory. Physical Examination: General: Ms. Ennis was alert, oriented to name and place. Vital Signs: Stable. She was in a sinus rhythm. HEENT: Negative. Neck: Supple. No bruit. Chest: Clear. Cardiac: Revealed a regular rhythm and rate with S4 gallops and aortic sclerosis murmur. Abdomen: Benign. Extremities: Revealed no clubbing, cyanosis, or edema. Diagnostic Data: Chest x-ray was normal. EKG was normal. CT of her head shows chronic ischemic keegan nges. Potassium was 3.3. Hemoglobin was 7.5. Impression And Plan: 1.This is a patient who is 89, has a history of coronary artery disease that is stable. She is on P lavix and Lipitor. She has no cardiac symptoms, no physical evidence of congestive heart failure or coronary artery disease at this point by examination. She has a normal EKG and normal chest x-ray. Echocardiogram is recommended. The patient is clear for surgery. 2.Dyslipidemia, well controlled. 3.Alzheimer's and dementia. 4.Attention deficit disorder. 5.Anemia. 6.Hypokalemia that is being supplemented. I will continue to follow Ms. Ennis. WINIFRED/CHAD Voice ID: [id number] Report ID: [id number]
[2019-11-09] MEDS: DOCUSATE NA/SENNA CONC 1 TAB PO SCH (20:53)
[2019-11-09] MEDS: JUVEN PACKET PO SCH (20:54)
[2019-11-09] MEDS: OLANZapine 10 MG TABLET PO SCH (20:54)
[2019-11-09] MEDS: ENSURE ENLIVE 237 ML CAN PO SCH (20:54)
[2019-11-09] MEDS ORDERED: ATORVASTATIN 20 MG TAB PO SCH (21:00)
--- NOTE | 2019-11-09 21:13 | OP ---
Date of Procedure: 11/09/2019 Surgeon: Marcos Arevalo MD Preoperative Diagnosis: Infected necrotic stage IV sacral decubitus ulcer and left heel decubitus ul cer foul smelling with sepsis. Postoperative Diagnosis: Infected necrotic stage IV sacral decubitus ulcer and left heel decubitus u lcer foul smelling with sepsis. Procedures: 1.Excisional debridement of stage IV sacral infected, necrotic decubitus ulcer, 13 x 10 x 1.8 cm. 2.Excisional debridement of stage IV left heel infected, necrotic ulcer, 4 x 4 x 0.3 cm. 3.Pulse jet lavage of the sacral and decubitus ulcers. Specimen: Necrotic tissue and culture. Indications For Procedure: This is the case of an 89-year-old patient, admitted to the hospital with working diagnosis of sepsis with infected necrotic ulcer of the sacral and left heel. They are foul smelling, need to be cleaned. She has multiple medical issues. She was admitted for optimization. Gave the clearance to remove this necrotic tissue from the area since it is affecting her quality of life and her treatment. The patient's family and patient fully explained the benefits, alternatives , and risks of excisional debridement of those 2 ulcers, which include, but not limited to, infection , bleeding, damage to adjacent structures as complication, nonhealing wound, ND, and even . She also understand that this might not relieve any symptoms. She might need more than 1 surgical inter vention. She needs off-loading and she needs good nutrition. She signed a consent. Description Of Procedure: Patient was brought to the operating room, placed in supine position. Ane sthesia was done without complication. Patient was placed in lateral decubitus position with proper protection after anesthesia was induced. Area was prepped and draped in sterile fashion. Time-out w as called. Local anesthesia was applied to both places and then we proceeded to use excisional debri ezequiel with a sharp knife of the sacrum. Necrotic tissue was removed. Bone was exposed. Bone was p alpable in the sacrum. Then, we also proceeded to clean the left heel area. After that, we used at least 4 L of pulse lavage and pulse jet lavage of those areas until clean. The patient tolerated pro cedure well. The area was packed with wet-to-dry dressing after hemostasis. Patient was sent to [facility] in stable condition. This patient will require osteomyelitis workup, probably long-term antibi otics, may even suggest calling Infectious Disease and possibly also long-term antibiotics on an LTAC unit. TAB/CHAD Voice ID: [id number] Report ID: [id number]
[2019-11-10] MEDS: Meropenem 1,000 MG in NA CHLORIDE 0.9% 100 ML IV SCH ×3 (02:15→16:00)
[2019-11-10] MEDS ORDERED: VANCOMYCIN 750 MG in NA CHLORIDE 0.9% 150 ML IVPB SCH (03:00)
[2019-11-10 04:14] LABS: Absolute Lymphocytes (CBC) 0.5 K/uL (0.7-4.9); Basophils % 0.8 % (0-1.3); Hematocrit 30.7 % (36.0-45.0); Lymphocytes % 7.5 % (15.3-44.8); MPV 8.4 fL (7.6-11.3); RBC Red Blood Cell Count 3.51 M/uL (3.86-4.86)
[2019-11-10] MEDS: EXEMESTANE 25 MG PO SCH (07:02)
[2019-11-10] MEDS: JUVEN PACKET PO SCH ×2 (07:24→21:42)
[2019-11-10] MEDS: ENSURE ENLIVE 237 ML CAN PO SCH ×2 (07:24→21:42)
[2019-11-10] MEDS: MEMANTINE HCL 10 MG TABLET PO SCH ×2 (07:24→21:39)
[2019-11-10] MEDS: D5 0.45 NS 1,000 ML IV SCH ×3 (08:15→16:41)
[2019-11-10] MEDS ORDERED: PANTOPRAZOLE 40MG TABLET PO SCH (09:00)
[2019-11-10] MEDS: COLLAGENASE TP SCH (09:00)
--- NOTE | 2019-11-10 09:14 | PN ---
Date of Progress Note: 11/10/2019 Ms. Ennis was seen for cardiac clearance because of history of coronary artery disease. Echocardiogr am showed normal ejection fraction, mitral annular calcification, aortic sclerosis without any stenos is. Ms. Ennis also has a history of Alzheimer's. Yesterday, she was taken by Dr. Arevalo and had a n excisional debridement of her sacral and left heel necrotic ulcers. She tolerated the procedure we ll. Today, she is asymptomatic, afebrile. She is in sinus rhythm. Blood pressure is 133/63. Her w jordyn count of 7.2, hemoglobin 9.8. We will sign off her case. I will be available for questions, if the need arises. WINIFRED/CHAD Voice ID: [id number] Report ID: [id number]
[2019-11-10] MEDS: COLLAGENASE 30 GM OINTMENT TOP SCH (11:22)
--- NOTE | 2019-11-10 11:22 | P.PN ---
Subjective Date of Service: 11/10/19 Chief Complaint: Decubitus wound, foul-smelling Subjective: Improving (Patient is more alert and awake daily and she is interacting verbally and responding appropriately to questions. POD#1. Status post excisional debridement of stage IV sacral ulcer and left heel pressure ulcer. Pain is controlled), Other Physical Examination - Vital Signs Temperature: 97.2 F Blood Pressure: 140/65 Pulse: 68 Respirations: 15 Pulse Ox (%): 92 - Physical Exam General: Alert, Cooperative, Cachectic, Other (More alert, less frail) HEENT: Atraumatic, Normocephalic Neck: Supple Respiratory: Clear to auscultation bilaterally, Normal air movement Cardiovascular: No edema, Normal pulses, Regular rate/rhythm Gastrointestinal: Normal bowel sounds, Soft and benign, Non-distended Musculoskeletal: No clubbing, No swelling, No contractures Integumentary: Pressure ulcer, Other (Sacral decubitus ulcer packed with gauze. Gauze partially soaked with serosanguinous fluid) Neurological: Normal speech, Sensation intact, Normal affect Urinary: Leone catheter - Studies Microbiology Data (last 24 hrs): E. coli UTI Assessment & Plan - Problems (Diagnosis) (1) Sacral decubitus ulcer, stage III Current Visit: No Status: Acute (2) Stage III pressure ulcer of left heel Current Visit: No Status: Acute (3) Weakness Onset Date: 04/12/18 Current Visit: No Status: Acute (4) Osteomyelitis Current Visit: Yes Status: Acute (5) Osteomyelitis Current Visit: Yes Status: Acute (6) E. coli UTI (urinary tract infection) Current Visit: Yes Status: Acute (7) Decubitus ulcer, stage IV Current Visit: Yes Status: Acute Physician Review Additional Text: Assessment Patient is a 89-year-old female with known past medical history of dementia, coronary disease and bed bound status after a traumatic fall with injection and decubitus ulcer. She presented to the ER accompanied by daughter due to worsening wound infection in her sacral area. A CT A/P revealed osteomyelitis. She underwent excisional debriment of her sacral ulcer (stage IV) and left heel pressure ulcer on 11/09/2019. She is doing well on vancomycin. Meropenem was added as her blood cultures yielded gram negative rods. She has UTI secondary to E. coli. Osteomyelitis Stage 4 decubitus ulcer Gram negative bacteremia Coronary disease status post stent Dementia MDR E. coli PLAN Continue with meropenem and IV vancomycin Follow up wound cultures, sacral and heel pressure ulcer Will consult ID for long-term antibiotic recommendations Follow up recommendation from Surgery Multimodal pain regimen and bowel regimen Anti-emetics IV fluid infusion
--- NOTE | 2019-11-10 14:00 | PN ---
Date of Progress Note: 11/10/2019 Diagnosis: Infected sacral decubitus ulcer stage IV and also left heel ulcer. Subjective: Patient has debridement yesterday. Patient is doing well, comfortable. No distress. I ntact surgical site. Review of Systems: Shows no shortness of breath. Plan: When we did the sacral decubitus ulcer, we were palpating the bone that is clinically osteomye litis right there with a necrotic and infection over the area. I know it is difficult to get an MRI on her due to the history of dementia and unable to understand fully the instructions, but I believe then this patient should be evaluated by the Infectious Disease doctor and then consider long-term an tibiotics in an LTAC. In the meantime, we are going to do a wet-to-dry dressing with Santyl and offl oading and nutrition evaluation. TAB/CHAD Voice ID: [id number] Report ID: [id number]
[2019-11-10] MEDS: VANCOMYCIN 750 MG in NA CHLORIDE 0.9% 150 ML IVPB SCH (15:00)
--- NOTE | 2019-11-10 16:38 | P.CNS ---
Date of Consult: 11/10/19 Subjective: Patient is an 89 year old female who was brought to the hospital by her daughter for worsening sacral decubitus ulcer. Past medical history dementia, coronary artery disease status post stent in 2014, lumbar spine fracture, Alzheimer's, bilateral knee replacement, and right femur surgery. Per report, patient and is bed bound after a lumbar spine fracture and this is how she obtained the decubitus ulcer. Patient is a poor historian due to dementia. History obtained from medical record. PMH: Dementia, coronary artery disease, lumbar spine fracture, dementia, Alzheimer's Surgical history: Coronary stent in 2014, bilateral knee replacement, right femur surgery Medications: Atorvastatin Calcium [Lipitor*] 20 mg PO BEDTIME 08/25/19 Clopidogrel Bisulfate [Plavix*] 75 mg PO DAILY 08/25/19 Exemestane [Aromasin] 25 mg PO DAILY 08/25/19 Gabapentin [Neurontin*] 100 mg PO TID 08/25/19 Memantine HCl 10 mg PO BID 08/25/19 OLANZapine [Zyprexa*] 10 mg PO BEDTIME 08/25/19 Pantoprazole [Protonix Tab*] 40 mg PO DAILY 08/25/19 Sennosides/Docusate Sodium [Cvs Senna Plus Tablet] 2 tab PO BEDTIME 08/25/19 Tizanidine HCl [Zanaflex] 2 mg PO Q6H PRN 08/25/19 Tramadol HCl [Ultram] 1 tab PO Q6H PRN 08/25/19 Lactulose [Cephulac*] 30 ml PO QID PRN #30 ucup 08/26/19 Codeine/APAP [Tylenol W/Codeine #3 tab] 1 tab PO Q4HP PRN #15 tab 09/12/19 Allergies: PCN Family history: Father with HTN. Sister with cancer, unknown what type Social history: No tobacco or alcohol use reported Physical Examination: Vitals: T 98.1, Pulse 77, Respirations 15, BP 150/72, O2 93% Labs: WBC 7.2, NA 140, K 4.3, Procal 0.81, Albumin 2.0 ROS: General: Awake, Confused, unable to state name or where she is CV: S1,S2 RESP: Clear to auscultation ABD: Soft, flat, nontender : Leone catheter in place, clear urine Extremities: No edema, 2+ pedal and radial pulses Skin: Left foot rapped in kerlix s/p debridement today, no warmth, erythema or drainage noted. Sacrum with dressing CDI s/p debridement today, small amount of serosanguinous drainage, jorge area with no erythema. 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 Assessment and plan: Patient is an 89-year-old female with past medical history of dementia, Coronary artery disease, lumbar spine fracture, and Alzheimer's. Patient was brought to the hospital by her daughter for worsening sacral decubitus ulcer. Patient had leukocytosis on admission that has since resolved. CT abd/pelvis showed Decubitus ulceration to the right of midline at the sacrum with early erosive or bone loss changes identifiable. Wound culture positive for 2+ gram negative rods. Blood cultures preliminary report positive, awaiting final report and sensitivity. Urine cultures positive for e.coli. Patient is currently being treated with IV Vancomycin and IV merrem, continue antibiotics. Patient underwent debridement of sacral and left heel ulcer today 11/09. Will continue to monitor for signs of infection. Thank you for consult. Patient discussed with Dr. Bhatia.
[2019-11-10] MEDS: DOCUSATE NA/SENNA CONC 1 TAB PO SCH (21:39)
[2019-11-10] MEDS: OLANZapine 10 MG TABLET PO SCH (21:40)
[2019-11-11] MEDS: D5 0.45 NS 1,000 ML IV SCH ×4 (01:50→23:09)
[2019-11-11] MEDS: Meropenem 1,000 MG in NA CHLORIDE 0.9% 100 ML IV SCH ×3 (01:52→17:21)
[2019-11-11] MEDS: ENSURE ENLIVE 237 ML CAN PO SCH ×3 (09:00→21:00)
[2019-11-11] MEDS: MEMANTINE HCL 10 MG TABLET PO SCH ×3 (09:00→21:37)
[2019-11-11] MEDS ORDERED: VANCOMYCIN 750 MG in NA CHLORIDE 0.9% 150 ML IVPB SCH (09:00)
[2019-11-11] MEDS: EXEMESTANE 25 MG PO SCH (09:00)
[2019-11-11] MEDS: JUVEN PACKET PO SCH ×3 (09:00→21:00)
--- NOTE | 2019-11-11 10:01 | P.PN ---
Date of Service: 11/11/19 Subjective: Patient is an 89-year-old female was brought to hospital prior heard heart are for worsening sacral decubitus ulcer. Past medical history dementia, coronary artery disease status post stent in 2014, lumbar spine fracture, and Alzheimer's. Patient has an unstageable sacral decubitis ulcer and unstageable left heel ulcer. Per report, patient is bed bound after a lumbar spine fracture and that is how she obtained the decubitus ulcer. Patient underwent debridement of sacral and left heel ulcer yesterday 11/11/2019. Patient is a poor historian due to dementia. Per nurse, patient has not eating, denies diarrhea and fevers. Physical Examination: Vitals: T 97.5, Pulse 69, Respirations 16, BP 111/41, O2 98% Labs: K 3.3, procal 0.81, WBC 7.2, Hgb 9.8, Hct 30.7, ESR >140 ROS: General: Fatigued, Unable to state name or where she is CV: S1,S2 RESP: clear to auscultation ABD: Soft, flat, nontender : Leone catheter Extremities: No edema, 2+ pedal and radial pulses Skin: Sacral ulcer with granulation tissue and slough, jorge area with erythema and maceration, moderate amount of serosanguinous drainage. Left heel ulcer with granulation tissue and slough, jorge area with erythema. Assessment and plan: Sacral unstageable decubitis ulcer, continue santyl daily. Left heel unstageable pressure ulcer, continue santyl daily. Wound, urine and blood cultures positive for e.coli, continue current antibiotics for total of 6 weeks. Consider [facility] acute care for hyperbaric and wound management. Leukocytosis resolved Will continue to monitor for signs of infection. Patient discussed with Dr. Bhatia.
[2019-11-11] MEDS: COLLAGENASE 30 GM OINTMENT TOP SCH (10:50)
[2019-11-11 17:32] LABS: BUN Blood Urea Nitrogen 7 mg/dL (7-18); Bicarbonate 27 mmol/L (21-32); Glucose Level 106 mg/dL (74-106); Potassium 3.6 mmol/L (3.5-5.1); Sodium Level 145 mmol/L (136-145)
[2019-11-11 17:40] LABS: Absolute Lymphocytes (CBC) 1.9 K/uL (0.7-4.9); Basophils % 0.9 % (0-1.3); Hematocrit 31.4 % (36.0-45.0); Lymphocytes % 21.1 % (15.3-44.8); MPV 9.2 fL (7.6-11.3); RBC Red Blood Cell Count 3.65 M/uL (3.86-4.86)
--- NOTE | 2019-11-11 18:46 | P.PN ---
Subjective Date of Service: 11/11/19 Chief Complaint: Decubitus wound, foul-smelling Subjective: No new changes (No acute events overnight. Patient is afebrile. Does not usually interactive verbally. She can follow instructions and react appropriately) Physical Examination - Vital Signs Temperature: 97.1 F Blood Pressure: 102/44 Pulse: 70 Respirations: 16 Pulse Ox (%): 98 - Physical Exam General: Cachectic, Confused, Other (Frail and lethargic) HEENT: Atraumatic, Normocephalic Neck: Supple Respiratory: Clear to auscultation bilaterally, Normal air movement Cardiovascular: No edema, Regular rate/rhythm, Normal S1 S2 Gastrointestinal: Normal bowel sounds, Soft and benign, Non-distended Musculoskeletal: Other (Stage IV decubitus ulcer with packing. No foul-smelling odor. No bleeding) Neurological: Sensation intact, Normal affect - Studies Microbiology Data (last 24 hrs): 11/08/19 12:21 Blood - Blood Aerobic Blood Culture - Final Escherichia Coli 11/08/19 12:21 Blood - Blood Blood Culture Gram Stain - Final 11/08/19 12:21 Blood - Blood Anaerobic Blood Culture - Final Escherichia Coli 11/08/19 12:21 Blood - Blood Gram Stain - Final Assessment & Plan - Problems (Diagnosis) (1) Sacral decubitus ulcer, stage III Current Visit: No Status: Acute (2) Stage III pressure ulcer of left heel Current Visit: No Status: Acute (3) Weakness Onset Date: 04/12/18 Current Visit: No Status: Acute (4) Osteomyelitis Current Visit: Yes Status: Acute (5) Osteomyelitis Current Visit: Yes Status: Acute (6) E. coli UTI (urinary tract infection) Current Visit: Yes Status: Acute (7) Decubitus ulcer, stage IV Current Visit: Yes Status: Acute Physician Review Additional Text: Assessment Patient is a 89-year-old female with known past medical history of dementia, coronary disease and bed bound status after a traumatic fall with injection and decubitus ulcer. She presented to the ER accompanied by daughter due to worsening wound infection in her sacral area. A CT A/P revealed osteomyelitis. She underwent excisional debriment of her sacral ulcer (stage IV) and left heel pressure ulcer on 11/09/2019. She is doing well on vancomycin. Meropenem was added as her blood cultures yielded gram negative rods. She has UTI secondary to E. coli. Osteomyelitis Stage 4 decubitus ulcer s/p debridement with wound cx showing MDR E. coli MDR E. coli UTI MDR E. coli bacteremia Coronary disease status post stent Dementia PLAN Continue with meropenem Discontinue vancomycin Continue santyl application to decubitus and heel wounds Patient will need a total of 6 weeks of IV antibiotics ID is recommending [facility] for IV antibiotics and wound care Multimodal pain regimen and bowel regimen Anti-emetics IV fluid infusion
[2019-11-11 19:22] LABS: Blood Morphology Comment NOT SEEN (NOT SEEN); Platelet Estimate ADEQ; Urine White Blood Cell Casts OK
[2019-11-11] MEDS: DOCUSATE NA/SENNA CONC 1 TAB PO SCH (21:37)
[2019-11-11] MEDS: OLANZapine 10 MG TABLET PO SCH (21:37)
[2019-11-12] MEDS: Meropenem 1,000 MG in NA CHLORIDE 0.9% 100 ML IV SCH ×3 (00:08→17:00)
[2019-11-12] MEDS: D5 0.45 NS 1,000 ML IV SCH ×2 (04:19→20:15)
[2019-11-12] MEDS: JUVEN PACKET PO SCH ×2 (09:00→21:00)
[2019-11-12] MEDS: COLLAGENASE 30 GM OINTMENT TOP SCH (09:00)
[2019-11-12] MEDS: ENSURE ENLIVE 237 ML CAN PO SCH ×2 (09:00→21:00)
[2019-11-12] MEDS: EXEMESTANE 25 MG PO SCH (09:00)
[2019-11-12] MEDS: MEMANTINE HCL 10 MG TABLET PO SCH ×2 (09:13→22:50)
--- NOTE | 2019-11-12 18:12 | P.PN ---
Subjective Date of Service: 11/12/19 Chief Complaint: Decubitus wound, foul-smelling Subjective: No new changes Physical Examination - Vital Signs Temperature: 97 F Blood Pressure: 105/45 Pulse: 70 Respirations: 20 Pulse Ox (%): 100 - Physical Exam General: In no apparent distress, Cachectic, Confused, Other (lethargic, awake. Occasionally responding to questions. ) HEENT: Atraumatic, Normocephalic Neck: Supple Respiratory: Clear to auscultation bilaterally, Normal air movement Cardiovascular: Normal pulses, Regular rate/rhythm, Normal S1 S2, No murmurs Gastrointestinal: Normal bowel sounds, Soft and benign, Non-distended Integumentary: Pressure ulcer, Other (poor range of motion) Neurological: Dementia Assessment & Plan - Problems (Diagnosis) (1) Sacral decubitus ulcer, stage III Current Visit: No Status: Acute (2) Stage III pressure ulcer of left heel Current Visit: No Status: Acute (3) Weakness Onset Date: 04/12/18 Current Visit: No Status: Acute (4) Osteomyelitis Current Visit: Yes Status: Acute (5) Osteomyelitis Current Visit: Yes Status: Acute (6) E. coli UTI (urinary tract infection) Current Visit: Yes Status: Acute (7) Decubitus ulcer, stage IV Current Visit: Yes Status: Acute Physician Review Additional Text: Assessment Patient is a 89-year-old female with known past medical history of dementia, coronary disease and bed bound status after a traumatic fall with injection and decubitus ulcer. She presented to the ER accompanied by daughter due to worsening wound infection in her sacral area. A CT A/P revealed osteomyelitis. She underwent excisional debriment of her sacral ulcer (stage IV) and left heel pressure ulcer on 11/09/2019. She is doing well on vancomycin. Meropenem was added as her blood cultures yielded gram negative rods. She has UTI secondary to E. coli. Osteomyelitis Stage 4 decubitus ulcer s/p debridement with wound cx showing MDR E. coli MDR E. coli UTI MDR E. coli bacteremia Coronary disease status post stent Dementia PLAN Continue with meropenem Continue santyl application to decubitus and heel wounds Patient will need a total of 6 weeks of IV antibiotics ID is recommending [facility] for IV antibiotics and wound care Multimodal pain regimen and bowel regimen Anti-emetics IV fluid infusion
[2019-11-12] MEDS: DOCUSATE NA/SENNA CONC 1 TAB PO SCH (22:50)
[2019-11-12] MEDS: OLANZapine 10 MG TABLET PO SCH (22:51)
[2019-11-13] MEDS: Meropenem 1,000 MG in NA CHLORIDE 0.9% 100 ML IV SCH ×3 (01:48→16:10)
[2019-11-13] MEDS: D5 0.45 NS 1,000 ML IV SCH ×3 (01:51→13:52)
[2019-11-13] MEDS: COLLAGENASE 30 GM OINTMENT TOP SCH (09:00)
[2019-11-13] MEDS: JUVEN PACKET PO SCH ×2 (09:00→23:19)
[2019-11-13] MEDS: EXEMESTANE 25 MG PO SCH (09:00)
[2019-11-13] MEDS: ENSURE ENLIVE 237 ML CAN PO SCH ×2 (09:00→21:00)
[2019-11-13] MEDS: MEMANTINE HCL 10 MG TABLET PO SCH ×2 (10:01→23:18)
--- NOTE | 2019-11-13 17:45 | P.PN ---
Subjective Date of Service: 11/13/19 Chief Complaint: Decubitus wound, foul-smelling Subjective: No new changes (Patient asked how she was doing, responds " so far so good". Not very interacctive verbally) Physical Examination - Vital Signs Temperature: 97.6 F Blood Pressure: 113/56 Pulse: 67 Respirations: 20 Pulse Ox (%): 99 - Physical Exam General: In no apparent distress, Confused HEENT: Atraumatic, Normocephalic Neck: Supple Respiratory: Clear to auscultation bilaterally, Normal air movement Cardiovascular: No edema, Normal pulses, Regular rate/rhythm, Normal S1 S2 Gastrointestinal: Normal bowel sounds, Soft and benign, Non-distended Integumentary: Pressure ulcer, Other (stage IV sacral ulcer, packed with gauze - clean and dry. ) - Studies Microbiology Data (last 24 hrs): 11/08/19 12:25 Blood - Blood Aerobic Blood Culture - Final No growth in 5 days. Assessment & Plan - Problems (Diagnosis) (1) Sacral decubitus ulcer, stage III Current Visit: No Status: Acute (2) Stage III pressure ulcer of left heel Current Visit: No Status: Acute (3) Weakness Onset Date: 04/12/18 Current Visit: No Status: Acute (4) Osteomyelitis Current Visit: Yes Status: Acute (5) Osteomyelitis Current Visit: Yes Status: Acute (6) E. coli UTI (urinary tract infection) Current Visit: Yes Status: Acute (7) Decubitus ulcer, stage IV Current Visit: Yes Status: Acute Physician Review Additional Text: Assessment Patient is a 89-year-old female with known past medical history of dementia, coronary disease and bed bound status after a traumatic fall with injection and decubitus ulcer. She presented to the ER accompanied by daughter due to worsening wound infection in her sacral area. A CT A/P revealed osteomyelitis. She underwent excisional debriment of her sacral ulcer (stage IV) and left heel pressure ulcer on 11/09/2019. She is doing well on vancomycin. Meropenem was added as her blood cultures yielded gram negative rods. She has UTI secondary to E. coli. Osteomyelitis Stage 4 decubitus ulcer s/p debridement with wound cx showing MDR E. coli MDR E. coli UTI MDR E. coli bacteremia Coronary disease status post stent Dementia PLAN Continue with meropenem Patient will need a total of 6 weeks of IV antibiotics ID is recommending [facility] [place] for IV antibiotics and wound care Nutrition consulted today Follow up CBC, BMP Continue santyl application to decubitus and heel wounds Multimodal pain regimen and bowel regimen Anti-emetics IV fluid infusion
[2019-11-13 20:50] LABS: Absolute Lymphocytes (CBC) 1.2 K/uL (0.7-4.9); Basophils % 0.8 % (0-1.3); Hematocrit 31.9 % (36.0-45.0); Lymphocytes % 17.6 % (15.3-44.8); MPV 8.7 fL (7.6-11.3); RBC Red Blood Cell Count 3.66 M/uL (3.86-4.86)
[2019-11-13 20:54] LABS: BUN Blood Urea Nitrogen 4 mg/dL (7-18); Bicarbonate 28 mmol/L (21-32); Glucose Level 99 mg/dL (74-106); Potassium 3.1 mmol/L (3.5-5.1); Sodium Level 146 mmol/L (136-145)
[2019-11-13] MEDS: OLANZapine 10 MG TABLET PO SCH (23:18)
[2019-11-13] MEDS: DOCUSATE NA/SENNA CONC 1 TAB PO SCH (23:18)
[2019-11-14] MEDS: Meropenem 1,000 MG in NA CHLORIDE 0.9% 100 ML IV SCH ×3 (00:41→17:12)
[2019-11-14] MEDS: D5 0.45 NS 1,000 ML IV SCH ×2 (00:43→12:59)
[2019-11-14 05:34] LABS: BUN Blood Urea Nitrogen 4 mg/dL (7-18); Bicarbonate 27 mmol/L (21-32); Glucose Level 109 mg/dL (74-106); Magnesium 1.9 mg/dL (1.8-2.4); Phosphorus 1.6 mg/dL (2.5-4.9); Sodium Level 143 mmol/L (136-145)
[2019-11-14 05:39] LABS: Potassium 2.7 mmol/L (3.5-5.1)
[2019-11-14] MEDS: KCL 20 MEQ/100 mL IVPB 20 MEQ/100 ML BAG IV SCH ×5 (08:00→19:48)
[2019-11-14] MEDS: MEMANTINE HCL 10 MG TABLET PO SCH ×3 (09:00→20:33)
[2019-11-14] MEDS: JUVEN PACKET PO SCH ×2 (09:00→20:37)
[2019-11-14] MEDS: EXEMESTANE 25 MG PO SCH (09:00)
[2019-11-14] MEDS: ENSURE ENLIVE 237 ML CAN PO SCH ×2 (09:59→20:37)
[2019-11-14] MEDS: COLLAGENASE 30 GM OINTMENT TOP SCH (10:01)
--- NOTE | 2019-11-14 15:01 | P.PN ---
Subjective Date of Service: 11/14/19 Chief Complaint: Decubitus wound, foul-smelling Subjective: Improving Physical Examination - Vital Signs Temperature: 97.2 F Blood Pressure: 140/51 Pulse: 62 Respirations: 16 Pulse Ox (%): 99 - Physical Exam General: Alert, Other (Patient alert speak Albanian. Patient cooperative and Albanian.) HEENT: Atraumatic Neck: Supple Respiratory: Clear to auscultation bilaterally Cardiovascular: Normal pulses, Regular rate/rhythm Gastrointestinal: Normal bowel sounds, Soft and benign, Non-distended - Studies Microbiology Data (last 24 hrs): 11/08/19 12:25 Blood - Blood Aerobic Blood Culture - Final No growth in 5 days. Medications List Reviewed: Yes Assessment & Plan Discharge Plan: LTAC Plan to discharge in: 24 Hours Physician Review Additional Text: Impression: Stage IV decubitus ulcer with osteomyelitis status post debridement with wound culture showing E coli complicated with bacteremia and UTI showing E coli CAD with prior stent Dementia Plan: Stage IV decubitus ulcer with osteomyelitis status post debridement with wound culture showing E coli complicated with bacteremia and UTI showing E coli: Spoke at length with daughter. Infectious Disease is recommending long-term acute care facility placement for IV antibiotic therapy and wound care. Patient will need a total of 6 weeks of IV antibiotic therapy-[facility]. Social work to work on transfer process. CAD with prior stent: Continue medication Dementia: Overall stable. Time Spent Managing Pts Care (In Minutes): 55
--- NOTE | 2019-11-14 15:42 | P.PN ---
Date of Service: 11/14/19 Subjective: Patient is an 89-year-old female was brought to hospital by her daughter for worsening sacral decubitus ulcer. Past medical history dementia, coronary artery disease status post stent in 2014, lumbar spine fracture, and Alzheimer's. Patient has an unstageable sacral decubitis ulcer and unstageable left heel ulcer. Per report, patient is bed bound after a lumbar spine fracture and that is how she obtained the decubitus ulcer. Patient underwent debridement of sacral and left heel ulcer on 11/11/2019. Patient is a poor historian due to dementia. Per nurse, patient has no been taking oral nutrition. Physical Examination: Vitals: T 97.2, Pulse 62, Respirations 16, BP 140/51, O2 99% Labs: K 2.7, procal 0.81, WBC 7.21, ESR >140, NS 143, Phos 1.6 ROS: General: Fatigued, withdraws to painful stimuli CV: S1,S2 RESP: clear to auscultation ABD: Soft, flat, nontender : Leone catheter Extremities: No edema, 2+ pedal and radial pulses Skin: Sacral ulcer with granulation tissue and small amount of slough, jorge area with erythema and maceration, moderate amount of serosanguinous drainage. Left heel ulcer with granulation tissue and slough, jorge area with erythema. Assessment and plan: Sacral unstageable decubitis ulcer, continue santyl daily. Left heel unstageable pressure ulcer, continue santyl daily. Wound, urine and blood cultures positive for e.coli, continue current antibiotics for total of 6 weeks. Consider [facility] for hyper[facility]ic and wound management. Leukocytosis resolved Poor oral intake, recommend other means of nutrition such as parenteral or enteral Patient discussed with Dr. Bhatia.
[2019-11-14] MEDS: ENOXAPARIN 30 MG/0.3 ML SQ SCH (17:13)
[2019-11-14] MEDS: DOCUSATE NA/SENNA CONC 1 TAB PO SCH (20:33)
[2019-11-14] MEDS: OLANZapine 10 MG TABLET PO SCH (20:33)
[2019-11-15 00:43] LABS: BUN Blood Urea Nitrogen 5 mg/dL (7-18); Bicarbonate 30 mmol/L (21-32); Glucose Level 104 mg/dL (74-106); Potassium 3.4 mmol/L (3.5-5.1); Sodium Level 144 mmol/L (136-145)
[2019-11-15] MEDS: Meropenem 1,000 MG in NA CHLORIDE 0.9% 100 ML IV SCH ×3 (00:55→17:17)
[2019-11-15 06:38] LABS: BUN Blood Urea Nitrogen 5 mg/dL (7-18); Bicarbonate 28 mmol/L (21-32); Glucose Level 76 mg/dL (74-106); Phosphorus 1.8 mg/dL (2.5-4.9); Potassium 3.8 mmol/L (3.5-5.1); Sodium Level 145 mmol/L (136-145)
[2019-11-15 07:48] LABS: Absolute Lymphocytes (CBC) 2.2 K/uL (0.7-4.9); Basophils % 0.8 % (0-1.3); Hematocrit 31.2 % (36.0-45.0); Lymphocytes % 18.2 % (15.3-44.8); MPV 9.4 fL (7.6-11.3); RBC Red Blood Cell Count 3.58 M/uL (3.86-4.86)
[2019-11-15 08:37] LABS: Blood Morphology Comment NOT SEEN (NOT SEEN); Platelet Estimate ADEQ
[2019-11-15] MEDS: MEMANTINE HCL 10 MG TABLET PO SCH ×2 (08:46→21:13)
[2019-11-15] MEDS: JUVEN PACKET PO SCH ×2 (08:47→21:11)
[2019-11-15] MEDS: EXEMESTANE 25 MG PO SCH (08:47)
[2019-11-15] MEDS: CLOPIDOGREL 75 MG TABLET PO SCH (08:47)
[2019-11-15] MEDS: ENSURE ENLIVE 237 ML CAN PO SCH ×2 (08:47→21:11)
[2019-11-15] MEDS: COLLAGENASE 30 GM OINTMENT TOP SCH (08:48)
[2019-11-15] MEDS ORDERED: KCL 20 MEQ/100 mL IVPB 20 MEQ/100 ML BAG IV SCH (09:00)
--- NOTE | 2019-11-15 11:15 | P.DS ---
Admission Date: 11/08/19 Discharge Date: 11/15/19 Primary Care Provider: unknown [facility] Discharge Condition: GOOD Reason for Admission: Decubitus wound, foul-smelling Consultations: Surgery-Dr. Arevalo ID-Dr. Bhatia Procedures: CT Scan: FINDINGS: No suspicious findings in the lung bases. The liver, spleen, and pancreas show no suspicious findings. A 3.5 centimeter cyst midline left lobe liver and 1.5 centimeter cyst posterior right lobe liver not clearly different from earlier study. No suspicious characteristics. Portal vein enhances normally. Spleen and pancreas show no suspicious findings. There is pancreatic atrophy. Cholecystectomy clips are present. Intrahepatic and extrahepatic biliary tree dilatation are present. No mass or duct stone seen. Duct stones can be occult. The degree of dilatation is not clearly different from July. The biliary tree is much better visualized on the current study. This is probably reservoir effect that can develop after a cholecystectomy. Correlation is needed with any biliary obstructive clinical or laboratory findings. Symmetric renal function is seen with no hydronephrosis or suspicious renal mass. No pyelonephritis or acute parenchymal process. A 3.5 centimeter posterior mid left renal cyst present. A small 12 millimeter cyst is present in the lower right kidney. No adrenal abnormalities. Urinary bladder is fully contracted around a Leone catheter. No gastric dilatation or wall thickening. Moderate stool volume is present throughout the colon. No dilated large or small bowel loops present. Diverticulosis is present. Active GI process is not seen. No free air, pneumatosis, free fluid or inflammatory stranding within the peritoneal or retroperitoneal spaces. No hernia, mass or bulky lymphadenopathy. Advanced bony degenerative changes are present. Moderately large sacral wound is present right of midline. Soft tissue loss extends down to the bone. Early bone erosive changes are present. This is consistent with the osteomyelitis history. To the left of midline in the soft tissues near the inferior most sacral ala air densities are present in the soft tissues. No abscess or drainable fluid collection present. IMPRESSION: Decubitus ulceration to the right of midline at the sacrum with early erosive or bone loss changes identifiable. Several small air densities are present in the deep soft tissues inferior margin of the left sacral ala. No abscess or drainable fluid collection. Additional findings detailed in the report do not appear to be acute. Surgery: Date of Procedure: 11/09/2019 Surgeon: Marcos Arevalo MD Preoperative Diagnosis: Infected necrotic stage IV sacral decubitus ulcer and left heel decubitus ulcer foul smelling with sepsis. Postoperative Diagnosis: Infected necrotic stage IV sacral decubitus ulcer and left heel decubitus ulcer foul smelling with sepsis. Procedures: 1. Excisional debridement of stage IV sacral infected, necrotic decubitus ulcer, 13 x 10 x 1.8 cm. 2. Excisional debridement of stage IV left heel infected, necrotic ulcer, 4 x 4 x 0.3 cm. 3. Pulse jet lavage of the sacral and decubitus ulcers. Specimen: Necrotic tissue and culture. Medical problem list: Stage IV infected necrotic decubitus sacral ulcer and left heel decubitus ulcer with osteomyelitis status post debridement with wound culture showing E coli complicated with sepsis/bacteremia complicated with UTI, urine culture positive for E coli CAD with prior stent Dementia Brief History of Present Illness: 81-year-old female with history of severe dementia and CAD. Patient has had multiple wounds with debridements to the sacrum. Patient brought in due to necrotic sacral ulcer and left heel ulcer. Patient admitted for further evaluation and treatment. Hospital Course: Patient presented with stage IV infected necrotic decubitus sacral ulcer and left heel decubitus ulcer. Patient was further evaluated by surgery and infectious disease during the course of her stay. Patient found to have osteomyelitis. Patient required surgical debridement with wound culture showing in E coli. This was further complicated with sepsis/bacteremia and UTI. Urine culture was positive for E coli. Due to her wounds and current condition infectious disease recommended long-term acute care facility placement for IV antibiotic therapy and aggressive wound care. Patient would also require hyperbaric treatment. Infectious Disease recommends to continue IV antibiotic therapy-meropenem for total of 6 weeks. Patient to be transferred to long-term acute care facility to continue her current care and current regimen. Plan of care discussed with daughter who agrees with plan of care. Advanced directives also addressed. Patient is do not resuscitate. Patient with un derlying CAD with prior stent and severe dementia. Will need to consider in the future if her condition does not improve then patient may benefit with hospice. This can be further addressed with family. Vital Signs/Physical Exam: Temp Pulse Resp BP Pulse Ox 97.0 F 77 15 148/67 H 91 11/15/19 08:00 11/15/19 08:00 11/15/19 08:00 11/15/19 08:00 11/15/19 08:00 General: Demented (Severe. But able to answer questions.) HEENT: Atraumatic Neck: Supple Respiratory: Clear to auscultation bilaterally, Normal air movement Cardiovascular: Normal pulses, Regular rate/rhythm Neurological: Dementia Laboratory Data at Discharge: WBC 12.1 K/uL (4.3-10.9) H D 11/15/19 06:57 Hgb 10.1 g/dL (12.0-15.0) L 11/15/19 06:57 Hct 31.2 % (36.0-45.0) L 11/15/19 06:57 Plt Count 293 K/uL (152-406) 11/15/19 06:57 PT 14.1 SECONDS (9.5-12.5) H 11/08/19 12:21 INR 1.20 11/08/19 12:21 APTT 29.2 SECONDS (24.3-36.9) 11/09/19 04:16 Sodium 145 mmol/L (136-145) 11/15/19 06:03 Potassium 3.8 mmol/L (3.5-5.1) 11/15/19 06:03 BUN 5 mg/dL (7-18) L 11/15/19 06:03 Creatinine 0.40 mg/dL (0.55-1.3) L 11/15/19 06:03 Glucose 76 mg/dL (74-106) 11/15/19 06:03 Phosphorus 1.8 mg/dL (2.5-4.9) L 11/15/19 06:03 Magnesium 2.0 mg/dL (1.8-2.4) 11/15/19 06:03 Total Bilirubin 0.7 mg/dL (0.2-1.0) 11/08/19 12:21 AST 12 U/L (15-37) L 11/08/19 12:21 ALT 11 U/L (12-78) L 11/08/19 12:21 Alkaline Phosphatase 67 U/L (45-117) 11/08/19 12:21 Amylase 26 U/L (25-115) 11/08/19 12:21 Lipase 34 U/L (73-393) L 11/08/19 12:21 Home Medications: Atorvastatin Calcium [Lipitor*] 20 mg PO BEDTIME 08/25/19 Clopidogrel Bisulfate [Plavix*] 75 mg PO DAILY 08/25/19 Exemestane [Aromasin] 25 mg PO DAILY 08/25/19 Gabapentin [Neurontin*] 100 mg PO TID 08/25/19 Memantine HCl 10 mg PO BID 08/25/19 OLANZapine [Zyprexa*] 10 mg PO BEDTIME 08/25/19 Pantoprazole [Protonix Tab*] 40 mg PO DAILY 08/25/19 Sennosides/Docusate Sodium [[facility]vs Senna Plus Tablet] 2 tab PO BEDTIME 08/25/19 Tramadol HCl [Ultram] 1 tab PO Q6H PRN 08/25/19 Lactulose [Cephulac*] 30 ml PO QID PRN #30 ucup 08/26/19 Codeine/APAP [Tylenol #3*] 1 tab PO Q4HP PRN #15 tab 09/12/19 Patient Discharge Instructions: 1. Patient to be transferred to long-term acute care facility to continue current IV antibiotic therapy, wound care and hyperbaric treatment. Continue current medication including IV meropenem for 6 weeks. 2. Patient presented with stage IV infected necrotic decubitus sacral ulcer and left heel decubitus ulcer. Patient was further evaluated by surgery and infectious disease during the course of her stay. Patient found to have osteomyelitis. Patient required surgical debridement with wound culture showing in E coli. This was further complicated with sepsis/bacteremia and UTI. Urine culture was positive for E coli. Due to her wounds and current condition infectious disease recommended long-term acute care facility placement for IV antibiotic therapy and aggressive wound care. Patient would also require hyperbaric treatment. Infectious Disease recommends to continue IV antibiotic therapy-meropenem for total of 6 weeks. Patient to be transferred to long-term acute care facility to continue her current care and current regimen. Patient will require PICC line to continue IV antibiotic therapy. 3. Plan of care discussed with daughter who agrees with plan of care. Advanced directives also addressed. Patient is do not resuscitate. Patient with underlying CAD with prior stent and severe dementia. Will need to consider in the future if her condition does not improve then patient may benefit with hospice. This can be further addressed with family. Diet: Continue current diet-mechanical ground Activity: Fall precautions Time spent managing pt's care (in minutes): 55
[2019-11-15] MEDS: ENOXAPARIN 30 MG/0.3 ML SQ SCH (17:14)
--- NOTE | 2019-11-15 17:19 | P.PN ---
Date of Service: 11/15/19 Subjective: Patient is an 89-year-old female was brought to hospital by her daughter for worsening sacral decubitus ulcer. Past medical history dementia, coronary artery disease status post stent in 2014, lumbar spine fracture, and Alzheimer's. Patient has an unstageable sacral decubitis ulcer and unstageable left heel ulcer. Per report, patient is bed bound after a lumbar spine fracture and that is how she obtained the decubitus ulcer. Patient underwent debridement of sacral and left heel ulcer on 11/11/2019. Patient is a poor historian due to dementia. Per nurse, patient ate good breakfast and lunch and is more alert. Physical Examination: Vitals: T 96.6, Pulse 74, Respirations 17, BP 126/51, O2 97% RA Labs: K 3.8, procal 0.81, WBC 12.1, ESR >140, Na 145, Phos 1.8 ROS: General: lethargic, eating dinner with assistance from ENGINEER CHIEF, does not open eyes CV: S1,S2 RESP: clear to auscultation ABD: Soft, flat, nontender : Leone catheter Extremities: No edema, 2+ pedal and radial pulses Skin: Sacral ulcer with granulation tissue and small amount of slough, jorge area with no erythema, mild amount of serous drainage. Left heel ulcer with granulation tissue and slough, jorge area with dry skin Assessment and plan: Sacral unstageable decubitis ulcer, continue santyl daily. Left heel unstageable pressure ulcer, continue santyl daily. Wound, urine and blood cultures positive for e.coli, continue current antibiotics for total of 6 weeks. Leukocytosis, patient to be [facility]fered [facility] for continued care, IV antibiotics and wound management. Poor appetite, improved, patient tolerating oral intake Patient discussed with Dr. Bhatia.
[2019-11-15] MEDS: OLANZapine 10 MG TABLET PO SCH (21:13)
[2019-11-15] MEDS: DOCUSATE NA/SENNA CONC 1 TAB PO SCH (21:13)
[2019-11-16] MEDS: Meropenem 1,000 MG in NA CHLORIDE 0.9% 100 ML IV SCH ×3 (01:11→17:49)
[2019-11-16 06:00] LABS: BUN Blood Urea Nitrogen 9 mg/dL (7-18); Bicarbonate 30 mmol/L (21-32); Glucose Level 90 mg/dL (74-106); Phosphorus 2.1 mg/dL (2.5-4.9); Potassium 3.8 mmol/L (3.5-5.1); Sodium Level 143 mmol/L (136-145)
[2019-11-16 06:04] LABS: Absolute Lymphocytes (CBC) 1.3 K/uL (0.7-4.9); Basophils % 0.7 % (0-1.3); Hematocrit 30.6 % (36.0-45.0); Lymphocytes % 21.4 % (15.3-44.8); MPV 8.9 fL (7.6-11.3)
[2019-11-16] MEDS: MEMANTINE HCL 10 MG TABLET PO SCH ×2 (07:52→21:00)
[2019-11-16] MEDS: CLOPIDOGREL 75 MG TABLET PO SCH (07:52)
[2019-11-16] MEDS: JUVEN PACKET PO SCH ×2 (07:53→21:05)
[2019-11-16] MEDS: ENSURE ENLIVE 237 ML CAN PO SCH ×2 (07:53→21:05)
[2019-11-16] MEDS: COLLAGENASE 30 GM OINTMENT TOP SCH (07:54)
[2019-11-16] MEDS: EXEMESTANE 25 MG PO SCH (07:54)
[2019-11-16] MEDS ORDERED: POTASSIUM 25 MEQ EFFERV TAB PO ONE (09:00)
--- NOTE | 2019-11-16 10:21 | P.PN ---
Date of Service: 11/16/19 Subjective: Patient is an 89-year-old female was brought to hospital by her daughter for worsening sacral decubitus ulcer. Patient has an unstageable sacral decubitis ulcer and unstageable left heel ulcer. Patient underwent debridement of sacral and left heel ulcer on 11/11/2019. Patient is a poor historian due to dementia. Patient examined at bedside. Per nurse patient eating about 50% of meals with assistance, no Diarrhea or fevers. Physical Examination: Temp Pulse Resp BP Pulse Ox 97.8 F 81 18 159/65 H 98 11/16/19 08:00 11/16/19 08:00 11/16/19 08:00 11/16/19 08:00 11/16/19 08:00 Labs: Na 143, K 3.8, WBC 5.9. Hgb 9.9, Hct 30.6 ROS: General: lethargic, eating breakfast with assistance from SHOES HAND SEWER, opens eyes to voice, following simple commands RESP: clear to auscultation ABD: Soft, flat, nontender : Leone catheter Extremities: No edema, 2+ pedal and radial pulses Skin: Sacral ulcer with granulation tissue and small amount of slough, jorge area with no erythema, mild amount of serous drainage. Left heel ulcer with granulation tissue and slough, jorge area with dry skin Assessment and plan: Sacral unstageable decubitis ulcer, continue santyl daily. Left heel unstageable pressure ulcer, continue santyl daily. Wound, urine and blood cultures positive for e.coli, continue current antibiotics for total of 6 weeks. Leukocytosis, [facility] for continued care, IV antibiotics and wound management. Poor appetite, improved, patient tolerating oral intake Patient discussed with Dr. Bhatia.
--- NOTE | 2019-11-16 13:40 | RAD REPORT ---
EXAM DESCRIPTION: RAD - Chest Single View - 11/16/2019 1:30 pm CLINICAL HISTORY: Device placement PICC line placement IMPRESSION: PICC line with its tip in the distal superior vena cava
[2019-11-16] MEDS: ENOXAPARIN 30 MG/0.3 ML SQ SCH (17:49)
[2019-11-16] MEDS: DOCUSATE NA/SENNA CONC 1 TAB PO SCH (21:00)
[2019-11-16] MEDS: OLANZapine 10 MG TABLET PO SCH (21:01)
[2019-11-17] MEDS: Meropenem 1,000 MG in NA CHLORIDE 0.9% 100 ML IV SCH ×3 (00:42→17:33)
[2019-11-17 04:51] LABS: Absolute Lymphocytes (CBC) 1.3 K/uL (0.7-4.9); Basophils % 0.8 % (0-1.3); Hematocrit 28.8 % (36.0-45.0); Lymphocytes % 24.9 % (15.3-44.8); MPV 8.5 fL (7.6-11.3); RBC Red Blood Cell Count 3.26 M/uL (3.86-4.86)
[2019-11-17 05:10] LABS: BUN Blood Urea Nitrogen 15 mg/dL (7-18); Bicarbonate 33 mmol/L (21-32); Glucose Level 81 mg/dL (74-106); Phosphorus 2.2 mg/dL (2.5-4.9); Sodium Level 142 mmol/L (136-145)
[2019-11-17] MEDS: ENSURE ENLIVE 237 ML CAN PO SCH ×2 (08:14→20:59)
[2019-11-17] MEDS: JUVEN PACKET PO SCH ×2 (08:15→20:59)
[2019-11-17] MEDS: EXEMESTANE 25 MG PO SCH (08:17)
[2019-11-17] MEDS: MEMANTINE HCL 10 MG TABLET PO SCH ×2 (08:18→20:56)
[2019-11-17] MEDS: CLOPIDOGREL 75 MG TABLET PO SCH (08:18)
--- NOTE | 2019-11-17 08:40 | P.PN ---
Date of Service: 11/17/19 Subjective: Patient is an 89-year-old female was brought to hospital by her daughter for worsening sacral decubitus ulcer. Patient has an unstageable sacral decubitis ulcer and unstageable left heel ulcer. Patient underwent debridement of sacral and left heel ulcer on 11/11/2019. Patient is a poor historian due to dementia. Patient examined at bedside. Per nurse patient eating about 50% of meals with assistance, more alert, no Diarrhea or fevers. Physical Examination: Temp Pulse Resp BP Pulse Ox 97.2 F 72 14 128/58 L 98 11/17/19 04:00 11/17/19 04:00 11/17/19 04:00 11/17/19 04:00 11/17/19 04:00 Labs: Na 142, K 4.0, WBC 5.2. Hgb 9.5, Hct 28.8, Phos 2.2 ROS: General: lethargic, opens eyes to voice, following simple commands RESP: clear to auscultation ABD: Soft, flat, nontender : Leone catheter Extremities: No edema, 2+ pedal and radial pulses Skin: Sacral ulcer with granulation tissue and small amount of slough and moderate amount of serous drainage. Left heel ulcer with granulation tissue and slough, jorge area soft and erythematous Assessment and plan: Sacral unstageable decubitis ulcer, continue santyl daily. Left heel unstageable pressure ulcer, continue santyl daily. Wound, urine and blood cultures positive for e.coli, continue current antibiotics for total of 6 weeks. Leukocytosis resolved [facility] for continued care, IV antibiotics and wound management. Poor appetite, improved, patient tolerating oral intake with assistance from staff Patient discussed with Dr. Bhatia.
--- NOTE | 2019-11-17 09:08 | P.PN ---
Subjective Date of Service: 11/17/19 Primary Care Provider: unknown Chief Complaint: Decubitus wound, foul-smelling Subjective: Doing well, Demented Physical Examination - Vital Signs Temperature: 97.6 F Blood Pressure: 121/68 Pulse: 71 Respirations: 16 Pulse Ox (%): 95 - Physical Exam General: Alert HEENT: Atraumatic Neck: Supple Respiratory: Clear to auscultation bilaterally, Normal air movement Cardiovascular: Normal pulses, Regular rate/rhythm Gastrointestinal: Normal bowel sounds, Soft and benign, Non-distended Integumentary: Other (unstageable ulcer to sacral) - Studies Medications List Reviewed: Yes Assessment & Plan Discharge Plan: LTAC Plan to discharge in: 24 Hours Physician Review Additional Text: Impression: Stage IV decubitus ulcer with osteomyelitis status post debridement with wound culture showing E coli complicated with bacteremia and UTI showing E coli CAD with prior stent Dementia Plan: Stage IV decubitus ulcer with osteomyelitis status post debridement with wound culture showing E coli complicated with bacteremia and UTI showing E coli: Insurance denied LTAC. I will do a Peer to Peer to try to approve it. Spoke with daughter at length about this. Patient would benefit with long-term acute care facility placement with IV antibiotic therapy, aggressive wound care and hyperbaric this. If this is still not approved other option would include skilled placement with IV antibiotic therapy or hospice with comfort measures only. Daughter understands this. Await discussion with insurance. CAD with prior stent: Continue medication Dementia: Overall stable. Time Spent Managing Pts Care (In Minutes): 55
[2019-11-17] MEDS: COLLAGENASE 30 GM OINTMENT TOP SCH (09:51)
[2019-11-17] MEDS: ENOXAPARIN 30 MG/0.3 ML SQ SCH (17:34)
[2019-11-17] MEDS: OLANZapine 10 MG TABLET PO SCH (20:56)
[2019-11-17] MEDS: DOCUSATE NA/SENNA CONC 1 TAB PO SCH (20:56)
[2019-11-18] MEDS: Meropenem 1,000 MG in NA CHLORIDE 0.9% 100 ML IV SCH ×3 (00:26→17:21)
[2019-11-18] MEDS: EXEMESTANE 25 MG PO SCH (09:00)
[2019-11-18] MEDS: ENSURE ENLIVE 237 ML CAN PO SCH ×2 (09:00→20:03)
[2019-11-18] MEDS: JUVEN PACKET PO SCH ×2 (09:00→20:03)
--- NOTE | 2019-11-18 09:33 | P.PN ---
Subjective Date of Service: 11/18/19 Primary Care Provider: unknown Chief Complaint: Decubitus wound, foul-smelling Subjective: No new changes <Jerrod Denny - Last Filed: 11/18/19 09:30> Date of Service: 11/18/19 <Isaak Hadley - Last Filed: 11/18/19 16:51> Review of Systems General: Unremarkable Eyes: Unremarkable ENT: Unremarkable Respiratory: Unremarkable Cardiovascular: Unremarkable Gastrointestinal: Unremarkable Genitourinary: Unremarkable Musculoskeletal: Unremarkable Integumentary: As per HPI Neurological: Unremarkable <Jerrod Denny - Last Filed: 11/18/19 09:30> Physical Examination - Vital Signs Temperature: 96.9 F Blood Pressure: 126/56 Pulse: 63 Respirations: 12 Pulse Ox (%): 93 - Physical Exam General: Alert, In no apparent distress HEENT: Atraumatic, Normocephalic Neck: Supple Respiratory: Clear to auscultation bilaterally Gastrointestinal: Normal bowel sounds - Studies Microbiology Data (last 24 hrs): 11/08/19 12:25 Blood - Blood Aerobic Blood Culture - Final No growth in 5 days. 11/08/19 12:25 Blood - Blood Anaerobic Blood Culture - Final 11/08/19 12:25 Blood - Blood Gram Stain - Final Medications List Reviewed: Yes <Jerrod Denny - Last Filed: 11/18/19 09:30> Assessment & Plan Discharge Plan: LTAC Plan to discharge in: 24 Hours Physician Review Additional Text: Impression: Stage IV decubitus ulcer with osteomyelitis status post debridement with wound culture showing E coli complicated with bacteremia and UTI showing E coli CAD with prior stent Dementia Plan: Stage IV decubitus ulcer with osteomyelitis status post debridement with wound culture showing E coli complicated with bacteremia and UTI showing E coli: Insurance denied LTAC. I will do a Peer to Peer to try to approve it. Patient would benefit with long-term acute care facility placement with IV antibiotic therapy, aggressive wound care and hyperbaric therapy. Attempted to contact the insurance company for peer to peer multiple times yesterday, was instructed that they have up to 24 hr to reach out for a peer to peer, still awaiting to hear back from insurance company. If this is still not approved other option would include skilled placement with IV antibiotic therapy or hospice with comfort measures only. Daughter understands this. Await discussion with insurance. CAD with prior stent: Continue medication Dementia: Overall stable. Time Spent Managing Pts Care (In Minutes): 55 <Jerrod Denny - Last Filed: 11/18/19 09:30> Physician Review Additional Text: Agree with plan of care. Spoke with medical transcriber with insurance. Patient will be accepted to long-term acute care facility if no skilled placement available with hyper barics <Isaak Hadley - Last Filed: 11/18/19 16:51>
[2019-11-18] MEDS: MEMANTINE HCL 10 MG TABLET PO SCH ×2 (10:13→20:04)
[2019-11-18] MEDS: CLOPIDOGREL 75 MG TABLET PO SCH (10:13)
[2019-11-18] MEDS: COLLAGENASE 30 GM OINTMENT TOP SCH (13:50)
--- NOTE | 2019-11-18 14:42 | P.PN ---
Date of Service: 11/18/19 Subjective: Patient is an 89-year-old female was brought to hospital by her daughter for worsening sacral decubitus ulcer. Patient has an unstageable sacral decubitis ulcer and unstageable left heel ulcer. Patient underwent debridement of sacral and left heel ulcer on 11/11/2019. Patient is a poor historian due to dementia. Patient examined at bedside. Per nurse patient not eating well today. No Diarrhea or fevers. Physical Examination: Temp Pulse Resp BP Pulse Ox 97.8 F 84 16 107/54 L 95 11/18/19 12:00 11/18/19 12:00 11/18/19 12:00 11/18/19 12:00 11/18/19 12:00 Labs: No new labs available ROS: General: lethargic, opens eyes to voice, following simple commands RESP: clear to auscultation ABD: Soft, flat, nontender : Leone catheter Extremities: No edema, 2+ pedal and radial pulses Skin: Sacral ulcer with granulation tissue and small amount of slough and moderate amount of serous drainage. Left heel ulcer with dressing changed today, CDI, jorge area with no erythema or warmth. Assessment and plan: Sacral unstageable decubitis ulcer, continue santyl daily. Left heel unstageable pressure ulcer, continue santyl daily. Wound, urine and blood cultures positive for e.coli, continue current antibiotics for total of 6 weeks. Leukocytosis resolved Patient to transfer to termite control service representative acute care for continued care, IV antibiotics and wound management. Patient discussed with Dr. Bhatia.
[2019-11-18] MEDS: ENOXAPARIN 30 MG/0.3 ML SQ SCH (16:04)
[2019-11-18] MEDS: DOCUSATE NA/SENNA CONC 1 TAB PO SCH (20:03)
[2019-11-18] MEDS: OLANZapine 10 MG TABLET PO SCH (20:03)
[2019-11-19] MEDS: Meropenem 1,000 MG in NA CHLORIDE 0.9% 100 ML IV SCH ×3 (00:06→18:24)
[2019-11-19] MEDS: ENSURE ENLIVE 237 ML CAN PO SCH ×2 (09:00→20:21)
[2019-11-19] MEDS: JUVEN PACKET PO SCH ×2 (09:00→20:19)
[2019-11-19] MEDS: EXEMESTANE 25 MG PO SCH (09:00)
[2019-11-19] MEDS: CLOPIDOGREL 75 MG TABLET PO SCH (09:00)
[2019-11-19] MEDS: MEMANTINE HCL 10 MG TABLET PO SCH ×3 (09:00→20:34)
[2019-11-19] MEDS: COLLAGENASE 30 GM OINTMENT TOP SCH (09:00)
--- NOTE | 2019-11-19 09:58 | P.PN ---
Subjective Date of Service: 11/19/19 Primary Care Provider: unknown Chief Complaint: Decubitus wound, foul-smelling Subjective: Other (Overall stable) Physical Examination - Vital Signs Temperature: 97.5 F Blood Pressure: 122/54 Pulse: 72 Respirations: 16 Pulse Ox (%): 100 - Physical Exam General: Alert, Demented HEENT: Atraumatic Neck: Supple Respiratory: Clear to auscultation bilaterally Cardiovascular: Normal pulses, Regular rate/rhythm Other Physical/Emotional Findings: Overall stable. Wounds not observed today. Patient with unstageable sacral decubitus. - Studies Medications List Reviewed: Yes Assessment & Plan Discharge Plan: LTAC Plan to discharge in: 24 Hours Physician Review Additional Text: Impression: Stage IV unstageable decubitus ulcer with osteomyelitis status post debridement with wound culture showing E coli complicated with bacteremia and UTI showing E coli CAD with prior stent Dementia Anemia of chronic disease Plan: Stage IV unstageable decubitus ulcer with osteomyelitis status post debridement with wound culture showing E coli complicated with bacteremia and UTI showing E coli: Continue IV antibiotic therapy as recommended by infectious disease. Infectious Disease also recommends aggressive wound care with hyperbaric treatment. Case discussed with medical director/head team physician for insurance. Patient was denied long-term acute care facility placement. The medical director/head team physician says that if no available local skilled facility with hyperbarics is available then he will approve long-term acute care facility placement. During none in the area as per social welfare administrator. I left messages with the director yesterday to see if the patient can continue to pursue long-term acute care facility placement with treatment. Await approval by insurance. Continue current medications. CAD with prior stent: Continue medication Dementia: Overall stable. Anemia of chronic disease: Overall stable. Will monitor closely. Time Spent Managing Pts Care (In Minutes): 55
[2019-11-19] MEDS: ENOXAPARIN 30 MG/0.3 ML SQ SCH (18:23)
[2019-11-19] MEDS: OLANZapine 10 MG TABLET PO SCH ×2 (20:19→20:37)
[2019-11-19] MEDS: DOCUSATE NA/SENNA CONC 1 TAB PO SCH ×2 (20:19→20:37)
[2019-11-20] MEDS: Meropenem 1,000 MG in NA CHLORIDE 0.9% 100 ML IV SCH ×3 (00:10→17:22)
[2019-11-20] MEDS: JUVEN PACKET PO SCH ×2 (09:00→21:37)
[2019-11-20] MEDS: EXEMESTANE 25 MG PO SCH (09:00)
[2019-11-20] MEDS: ENSURE ENLIVE 237 ML CAN PO SCH ×2 (09:00→21:37)
[2019-11-20] MEDS: CLOPIDOGREL 75 MG TABLET PO SCH (09:00)
[2019-11-20] MEDS: MEMANTINE HCL 10 MG TABLET PO SCH ×2 (09:00→21:37)
--- NOTE | 2019-11-20 14:23 | P.PN ---
Subjective Date of Service: 11/20/19 Primary Care Provider: unknown Chief Complaint: Decubitus wound, foul-smelling Subjective: Other (Poor oral intake. Increased fatigue) Physical Examination - Vital Signs Temperature: 97.2 F Blood Pressure: 123/40 Pulse: 67 Respirations: 16 Pulse Ox (%): 100 - Physical Exam General: Demented HEENT: Atraumatic Cardiovascular: Normal pulses, Regular rate/rhythm Gastrointestinal: Normal bowel sounds, Soft and benign Neurological: Other (Increased fatigue. Poor oral intake) Other Physical/Emotional Findings: Overall stable. Wounds not observed today. Patient with unstageable sacral decubitus. - Studies Medications List Reviewed: Yes Assessment & Plan Discharge Plan: Other (Home with hospice) Plan to discharge in: 24 Hours Physician Review Additional Text: Impression: Stage IV unstageable decubitus ulcer with osteomyelitis status post debridement with wound culture showing E coli complicated with bacteremia and UTI showing E coli CAD with prior stent Dementia Anemia of chronic disease Severe protein malnutrition Plan: Stage IV unstageable decubitus ulcer with osteomyelitis status post debridement with wound culture showing E coli complicated with bacteremia and UTI showing E coli: I have yet to receive any further information from medical services assistant. Patient with poor oral intake. Doubt patient will be approved for long-term acute care facility placement. Family does not want skilled placement. Plan of care was discussed with family in detail. They understand her current situation and likelihood for further decline. Especially with her poor nutrition. Therefore family has agreed to place the patient back on hospice. Will arrange for hospice at home. Likely plan for discharge tomorrow with hospice in place. Will continue with comfort measures after that time. CAD with prior stent: Continue medication Dementia: Overall stable. Anemia of chronic disease: Overall stable. Will monitor closely. Severe protein malnutrition: Poor oral intake noted with above recommendation. Time Spent Managing Pts Care (In Minutes): 55
[2019-11-20] MEDS: COLLAGENASE 30 GM OINTMENT TOP SCH (17:15)
[2019-11-20] MEDS: ENOXAPARIN 30 MG/0.3 ML SQ SCH (17:23)
[2019-11-20] MEDS: DOCUSATE NA/SENNA CONC 1 TAB PO SCH (21:36)
[2019-11-20] MEDS: OLANZapine 10 MG TABLET PO SCH (21:37)
[2019-11-21] MEDS: Meropenem 1,000 MG in NA CHLORIDE 0.9% 100 ML IV SCH ×2 (00:05→08:00)
[2019-11-21] MEDS: EXEMESTANE 25 MG PO SCH (07:14)
[2019-11-21] MEDS: ENSURE ENLIVE 237 ML CAN PO SCH (08:13)
[2019-11-21] MEDS: JUVEN PACKET PO SCH (08:13)
[2019-11-21] MEDS: MEMANTINE HCL 10 MG TABLET PO SCH (08:14)
[2019-11-21] MEDS: CLOPIDOGREL 75 MG TABLET PO SCH (08:14)
[2019-11-21] MEDS: COLLAGENASE 30 GM OINTMENT TOP SCH (08:15)
[2019-11-21 08:24] VITALS: O2SAT 95
[2019-11-21 10:17] VITALS: BP 123/51; TEMP 97.2
--- NOTE | 2019-11-21 11:52 | P.DS ---
Admission Date: 11/08/19 Discharge Date: 11/21/19 Primary Care Provider: unknown Disposition: HOSPICE-HOME Discharge Condition: GOOD Reason for Admission: Decubitus wound, foul-smelling Consultations: ID-Dr. Bhatia Surgery-Dr. Arevalo Cardiology-Dr. Brown Procedures: Surgery: Date of Procedure: 11/09/2019 Surgeon: Marcos Arevalo MD Preoperative Diagnosis: Infected necrotic stage IV sacral decubitus ulcer and left heel decubitus ulcer foul smelling with sepsis. Postoperative Diagnosis: Infected necrotic stage IV sacral decubitus ulcer and left heel decubitus ulcer foul smelling with sepsis. Procedures: 1. Excisional debridement of stage IV sacral infected, necrotic decubitus ulcer, 13 x 10 x 1.8 cm. 2. Excisional debridement of stage IV left heel infected, necrotic ulcer, 4 x 4 x 0.3 cm. 3. Pulse jet lavage of the sacral and decubitus ulcers. Specimen: Necrotic tissue and culture. ECHO: Ejection fraction 70% LEFT VENTRICULAR WALL MOTION: NORMAL DOPPLER/COLOR FLOW: NORMAL COMMENTS: NORMAL LEFT VENTRICULAR SIZE AND FUNCTION. MITRAL ANNULAR CALCIFICATION. AORTIC SCLEROSIS WITH NO STENOSIS CT scan: FINDINGS: No suspicious findings in the lung bases. The liver, spleen, and pancreas show no suspicious findings. A 3.5 centimeter cyst midline left lobe liver and 1.5 centimeter cyst posterior right lobe liver not clearly different from earlier study. No suspicious characteristics. Portal vein enhances normally. Spleen and pancreas show no suspicious findings. There is pancreatic atrophy. Cholecystectomy clips are present. Intrahepatic and extrahepatic biliary tree dilatation are present. No mass or duct stone seen. Duct stones can be occult. The degree of dilatation is not clearly different from July. The biliary tree is much better visualized on the current study. This is probably reservoir effect that can develop after a cholecystectomy. Correlation is needed with any biliary obstructive clinical or laboratory findings. Symmetric renal function is seen with no hydronephrosis or suspicious renal mass. No pyelonephritis or acute parenchymal process. A 3.5 centimeter posterior mid left renal cyst present. A small 12 millimeter cyst is present in the lower right kidney. No adrenal abnormalities. Urinary bladder is fully contracted around a Leone catheter. No gastric dilatation or wall thickening. Moderate stool volume is present throughout the colon. No dilated large or small bowel loops present. Diverticulosis is present. Active GI process is not seen. No free air, pneumatosis, free fluid or inflammatory stranding within the peritoneal or retroperitoneal spaces. No hernia, mass or bulky lymphadenopathy. Advanced bony degenerative changes are present. Moderately large sacral wound is present right of midline. Soft tissue loss extends down to the bone. Early bone erosive changes are present. This is consistent with the osteomyelitis history. To the left of midline in the soft tissues near the inferior most sacral ala air densities are present in the soft tissues. No abscess or drainable fluid collection present. IMPRESSION: Decubitus ulceration to the right of midline at the sacrum with early erosive or bone loss changes identifiable. Several small air densities are present in the deep soft tissues inferior margin of the left sacral ala. No abscess or drainable fluid collection. Additional findings detailed in the report do not appear to be acute. Medical Problem List: Stage IV unstageable decubitus ulcer with osteomyelitis status post debridement with wound culture showing E coli complicated with bacteremia and UTI showing E coli CAD with prior stent Dementia Anemia of chronic disease Severe protein malnutrition Brief History of Present Illness: 81-year-old female with history of severe dementia and CAD. Patient has had multiple wounds with debridements to the sacrum. Patient brought in due to necrotic sacral ulcer and left heel ulcer. Patient admitted for further evaluation and treatment. Hospital Course: Patient presented with stage IV infected necrotic decubitus sacral ulcer and left heel decubitus ulcer. Patient was further evaluated by surgery and infectious disease during the course of her stay. Patient found to have osteomyelitis. Patient required surgical debridement with wound culture showing in E coli. This was further complicated with sepsis/bacteremia and UTI. Urine culture was positive for E coli. Due to her wounds and current condition infectious disease recommended long-term acute care facility placement for IV antibiotic therapy and aggressive wound care. Patient would also require hyperbaric treatment. Infectious Disease recommends to continue IV antibiotic therapy-meropenem for total of 6 weeks. Unfortunately insurance denied long- term acute care facility placement. Plan of care was further discussed with the daughter. Patient previously with hospice. Considering the patient's current state of health and poor oral intake, daughter has decided to take the patient home on hospice with comfort measures. At discharge patient will go home with hospice to continue comfort measures. Patient is do not resuscitate. Patient with underlying CAD with prior stent, severe dementia, and severe protein malnutrition. Vital Signs/Physical Exam: Temp Pulse Resp BP Pulse Ox 97.2 F 65 18 123/51 L 97 04/27/20 08:00 11/21/19 08:00 11/21/19 08:00 11/21/19 08:00 11/21/19 08:00 General: Demented, Other (Increased fatigue severe dementia) Neck: Supple Respiratory: Clear to auscultation bilaterally, Normal air movement Cardiovascular: Normal pulses, Regular rate/rhythm Neurological: Dementia Other Physical/Emotional Findings: Overall stable. Wounds not observed today. Patient with unstageable sacral decubitus. Muscle wasting to the upper lower extremities. Laboratory Data at Discharge: WBC 5.2 K/uL (4.3-10.9) 11/17/19 04:20 Hgb 9.5 g/dL (12.0-15.0) L 11/17/19 04:20 Hct 28.8 % (36.0-45.0) L 11/17/19 04:20 Plt Count 258 K/uL (152-406) 11/17/19 04:20 PT 14.1 SECONDS (9.5-12.5) H 11/08/19 12:21 INR 1.20 11/08/19 12:21 APTT 29.2 SECONDS (24.3-36.9) 11/09/19 04:16 Sodium 142 mmol/L (136-145) 11/17/19 04:20 Potassium 4.0 mmol/L (3.5-5.1) 11/17/19 04:20 BUN 15 mg/dL (7-18) 11/17/19 04:20 Creatinine 0.31 mg/dL (0.55-1.3) L 11/17/19 04:20 Glucose 81 mg/dL (74-106) 11/17/19 04:20 Phosphorus 2.3 mg/dL (2.5-4.9) L 11/18/19 05:45 Magnesium 2.0 mg/dL (1.8-2.4) 11/16/19 05:26 Total Bilirubin 0.7 mg/dL (0.2-1.0) 11/08/19 12:21 AST 12 U/L (15-37) L 11/08/19 12:21 ALT 11 U/L (12-78) L 11/08/19 12:21 Alkaline Phosphatase 67 U/L (45-117) 11/08/19 12:21 Amylase 26 U/L (25-115) 11/08/19 12:21 Lipase 34 U/L (73-393) L 11/08/19 12:21 Home Medications: Atorvastatin Calcium [Lipitor*] 20 mg PO BEDTIME 08/25/19 Clopidogrel Bisulfate [Plavix*] 75 mg PO DAILY 08/25/19 Exemestane [Aromasin] 25 mg PO DAILY 08/25/19 Gabapentin [Neurontin*] 100 mg PO TID 08/25/19 Memantine HCl 10 mg PO BID 08/25/19 OLANZapine [Zyprexa*] 10 mg PO BEDTIME 08/25/19 Pantoprazole [Protonix Tab*] 40 mg PO DAILY 08/25/19 Sennosides/Docusate Sodium [Cvs Senna Plus Tablet] 2 tab PO BEDTIME 08/25/19 Tramadol HCl [Ultram] 1 tab PO Q6H PRN 08/25/19 Lactulose [Cephulac*] 30 ml PO QID PRN #30 ucup 08/26/19 Codeine/APAP [Tylenol #3*] 1 tab PO Q4HP PRN #15 tab 09/12/19 Patient Discharge Instructions: 1. Patient will be discharged home with hospice. Continue comfort measures only. Further medications/recommendations will come from hospice. Diet: Continue current diet-mechanical ground Activity: Fall precautions Time spent managing pt's care (in minutes): 55
--- NOTE | 2019-11-21 13:45 | P.PN ---
Subjective Date of Service: 11/21/19 Primary Care Provider: unknown Chief Complaint: Decubitus wound, foul-smelling Subjective: No new changes (drowsy) Physical Examination - Vital Signs Temperature: 97.2 F Blood Pressure: 123/51 Pulse: 65 Respirations: 18 Pulse Ox (%): 97 - Physical Exam General: Delirious, Other (drowsy) HEENT: Atraumatic, Normocephalic Neck: Supple, 2+ carotid pulse no bruit Respiratory: Diminished Cardiovascular: Regular rate/rhythm, Normal S1 S2 Gastrointestinal: Normal bowel sounds, Soft and benign, Non-distended Musculoskeletal: Other (dsg over left heel ) Neurological: Other (drowsy+, ) Other Physical/Emotional Findings: Overall stable. Wounds not observed today. Patient with unstageable sacral decubitus. Muscle wasting to the upper lower extremities. - Studies Laboratory Last Values WBC 13.6 K/uL (4.3-10.9) H 11/08/19 12:21 RBC 3.18 M/uL (3.86-4.86) L 11/08/19 12:21 Hgb 9.0 g/dL (12.0-15.0) L 11/08/19 12:21 Hct 28.0 % (36.0-45.0) L 11/08/19 12:21 MCV 88.1 fL (80-100) D 11/08/19 12:21 MCH 28.1 pg (27.0-35.0) 11/08/19 12:21 MCHC 31.9 g/dL (32.0-36.0) L 11/08/19 12:21 RDW 14.9 % (12.1-15.2) 11/08/19 12:21 Plt Count 286 K/uL (152-406) 11/08/19 12:21 MPV 7.8 fL (7.6-11.3) 11/08/19 12:21 Neutrophils % 89.2 % (41.7-73.7) H 11/08/19 12:21 Lymphocytes % 4.6 % (15.3-44.8) L 11/08/19 12:21 Monocytes % 5.9 % (3.3-12.3) 11/08/19 12:21 Eosinophils % 0.0 % (0-4.4) 11/08/19 12:21 Basophils % 0.3 % (0-1.3) 11/08/19 12:21 Absolute Neutrophils 12.1 K/uL (1.8-8.0) H 11/08/19 12:21 Absolute Lymphocytes 0.6 K/uL (0.7-4.9) L 11/08/19 12:21 Absolute Monocytes 0.8 K/uL (0.1-1.3) 11/08/19 12: Absolute Eosinophils 0.0 K/uL (0-0.5) 11/08/19 12: Absolute Basophils 0.0 K/uL (0-0.5) 11/08/19 12:21 ESR Westergren > 140 mm/HR (0-30) H 11/08/19 13:20 PT 14.1 SECONDS (9.5-12.5) H 11/08/19 12:21 INR 1.20 11/08/19 12:21 APTT 28.2 SECONDS (24.3-36.9) 11/08/19 12:21 Sodium 139 mmol/L (136-145) 11/08/19 12:21 Potassium 4.1 mmol/L (3.5-5.1) 11/08/19 12: Chloride 104 mmol/L (98-107) 11/08/19 12:21 Carbon Dioxide 29 mmol/L (21-32) 11/08/19 12:21 BUN 14 mg/dL (7-18) 11/08/19 12:21 Creatinine 0.60 mg/dL (0.55-1.3) 11/08/19 12:21 Estimated GFR > 90 mL/min (=/>90) 11/08/19 12:21 Glucose 94 mg/dL (74-106) 11/08/19 12:21 POC Glucose 87 mg/dl (65-120) 11/08/19 12:26 Lactic Acid 1.0 mmol/L (0.4-2.0) 11/08/19 12: Calcium 8.6 mg/dL (8.5-10.1) 11/08/19 12:21 Total Bilirubin 0.7 mg/dL (0.2-1.0) 11/08/19 12:21 Direct Bilirubin 0.4 mg/dL (0-0.2) H 04/14/20 12:21 AST 12 U/L (15-37) L 11/08/19 12:21 ALT 11 U/L (12-78) L 11/08/19 12:21 Alkaline Phosphatase 67 U/L (45-117) 11/08/19 12:21 Creatine Kinase 22 U/L (26-192) L 11/08/19 12:21 CK-MB (CK-2) < 1.0 ng/mL (0.3-3.6) 11/08/19 12:21 Rapid Troponin I < 0.02 ng/mL (0.0-0.045) 11/08/19 12:21 Serum Total Protein 6.1 g/dL (6.4-8.2) L 11/08/19 12:21 Albumin 2.0 g/dL (3.4-5.0) L 11/08/19 12:21 Globulin 4.1 g/dL (2.3-3.5) H 11/08/19 12:21 Albumin/Globulin Ratio 0.5 (1.1-1.8) L 11/08/19 12:21 Amylase 26 U/L (25-115) 11/08/19 12:21 Lipase 34 U/L (73-393) L 11/08/19 12:21 Procalcitonin 0.81 ng/mL (<0.50) H 11/08/19 12:21 Medications List Reviewed: Yes Assessment And Plan Physician Review Additional Text: Impression: Stage IV unstageable decubitus ulcer with osteomyelitis status post debridement with wound culture showing E coli complicated with bacteremia and UTI showing E coli CAD with prior stent Dementia Anemia of chronic disease Severe protein malnutrition Plan: Stage IV unstageable decubitus ulcer with osteomyelitis status post debridement with wound culture showing E coli complicated with bacteremia and UTI showing E coli: follow plan for hospice CAD with prior stent: Continue medication Dementia: Overall stable. Anemia of chronic disease: Overall stable. Will monitor closely. Severe protein malnutrition: Poor oral intake noted with above recommendation.
[2019-11-21] MEDS: ENOXAPARIN 30 MG/0.3 ML SQ SCH (16:02)
== END 2019-11-21 16:29 | disposition hospice, home (50) | DRG 853 ==
LOC: ER 12:22 → 2ND 13:33
PROVIDERS: ADMIT Internal Medicine; ATTEND Family Medicine
PROC: 0YBN0ZZ Excision of Left Foot, Open Approach (ICD-10-PCS; 2019-11-09)
PROC: 30233N1 Transfusion of Nonautologous Red Blood Cells into Peripheral Vein, Percutaneous Approach (ICD-10-PCS; 2019-11-09)
PROC: 0QB10ZZ Excision of Sacrum, Open Approach (ICD-10-PCS; principal; 2019-11-09 10:15)
PROC: 02HV33Z Insertion of Infusion Device into Superior Vena Cava, Percutaneous Approach (ICD-10-PCS; 2019-11-16)
DX: A41.9 Sepsis, unspecified organism (principal); L89.154 Pressure ulcer of sacral region, stage 4; L89.624 Pressure ulcer of left heel, stage 4; G92 Toxic encephalopathy; E43 Unspecified severe protein-calorie malnutrition; M86.9 Osteomyelitis, unspecified; N39.0 Urinary tract infection, site not specified; Z68.1 Body mass index [BMI] 19.9 or less, adult; Z66 Do not resuscitate; B96.20 Unspecified Escherichia coli [E. coli] as the cause of diseases classified elsewhere; I25.10 Atherosclerotic heart disease of native coronary artery without angina pectoris; D63.8 Anemia in other chronic diseases classified elsewhere; Z79.899 Other long term (current) drug therapy; Z95.5 Presence of coronary angioplasty implant and graft; Z79.02 Long term (current) use of antithrombotics/antiplatelets; Z79.891 Long term (current) use of opiate analgesic; Z88.0 Allergy status to penicillin; Z96.653 Presence of artificial knee joint, bilateral; E78.5 Hyperlipidemia, unspecified; G30.9 Alzheimer's disease, unspecified; F02.80 Dementia in other diseases classified elsewhere, unspecified severity, without behavioral disturbance, psychotic disturbance, mood disturbance, and anxiety; F98.8 Other specified behavioral and emotional disorders with onset usually occurring in childhood and adolescence; E87.6 Hypokalemia
CPT/HCPCS: 36415; 36430; 36569; 70450; 71045; 74177; 80048; 80076; 80202; 81001; 81003; 82150; 82274; 82550; 82553; 82947; 83605; 83690; 83735; 84100; 84132; 84145; 84484; 85025; 85610; 85652; 85730; 86850; 86900; 86901; 86922; 87040; 87070; 87075; 87077; 87086; 87088; 87186; 87205; 88304; 93005; 93306; 96361; 96365; 96367; 99214; 99285; J1650; J2704; J3010; J3590; J7030; J7040; J7799; P9016; Q9967

== ENCOUNTER 2019-11-24 00:34 | Inpatient (IN) | payer OTHER ==
--- OUTSIDE RECORDS SUMMARY | 2019-11-24 00:37 | XMS REPORT ---
:1930 Author Organization [facility] t Address [address] [place] [address] [place] [id number] Care Team Providers Name Role Phone Unavailable Unavailable Unavailable Problems This patient has no known problems. Allergies, Adverse Reactions, Alerts This patient has no known allergies or adverse reactions. Medications This patient has no known medications.
[2019-11-24] MEDS ORDERED: NA CHLORIDE 0.9% 2,000 ML ONE (01:27)
[2019-11-24 01:52] LABS: Absolute Lymphocytes (CBC) 1.1 K/uL (0.7-4.9); Basophils % 0.4 % (0-1.3); Hematocrit 33.2 % (36.0-45.0); Lymphocytes % 12.6 % (15.3-44.8); MPV 8.9 fL (7.6-11.3); RBC Red Blood Cell Count 3.76 M/uL (3.86-4.86)
[2019-11-24 01:55] LABS: Protime INR 1.08
[2019-11-24] MEDS ORDERED: ACETAMINOPHEN 650MG/RECT SUPP PR ONE (02:01)
--- NOTE | 2019-11-24 02:31 | ER ---
Nurse's Notes [facility] Name: Nela Ennis Age: 89 yrs Sex: Female : 1930 Arrival Date: 11/24/2019 Time: 00:36 Bed 3 Private MD: Diagnosis: Pneumonia, unspecified organism;Fever, unspecified Presentation: 11/23 00:38 Ebola Screen: No symptoms or risks identified at this time. ea 00:38 Chief complaint: EMS states: Reports pt was short of breath, was discharged from the [facility] two weeks ago and was placed on hospice. EMS reports temp of 100.7 axillary. EMS reported O2 was at 72% RA, pt was placed on non rebreather and O2 sats increased to 95 %. Coronavirus screen: Proceed with normal triage. Initial Sepsis Screen: Does the patient meet any 2 criteria? HR > 90 bpm. Does the patient have a suspected source of infection? Yes: Skin breakdown/wound. Risk Assessment: Do you want to hurt yourself or someone else? Patient reports no desire to harm self or others. Onset of symptoms was November 24, 2019. 00:38 Method Of Arrival: EMS: [facility] ea 00:38 Acuity: BFUFY 3 ea Historical: - Allergies: 01:49 PENICILLINS; ea - PMHx: 01:49 High Cholesterol; Dementia; CAD; Alzheimers; ADD/ADHD; ea - Immunization history:: Adult Immunizations unknown. - Social history:: Smoking status: unknown. Screenin:38 Abuse screen: Denies threats or abuse. ea 00:46 Nutritional screening: No deficits noted. Tuberculosis screening: No symptoms or risk ea factors identified. Fall Risk None identified. Assessment: 00:40 General: Appears in no apparent distress. Behavior is responds to verbal stimulus. ea Pain: Unable to use pain scale. FLACC scale score is 0 out of 10. Neuro: Level of Consciousness is responds to painful stimulus. Oriented to none. Cardiovascular: Patient's skin is warm and dry. Respiratory: Airway is patent Respiratory effort is even, unlabored, Respiratory pattern is regular, symmetrical. Derm: Skin is fragile, Skin is dry, Decubitus located on sacrum is stage IV is draining small amount malodorous, green. 01:30 Reassessment: Pt resting with eyes closed, respirations even and unlabored, chest ea expansions even and symmetrical. No s/s of pain or discomfort noted at this time. Pt placed on an air waffle. 03:38 Reassessment: Dr. Hdz notified about blood pressure 62/40, no new orders at this ea time. Physician requested power of refrigeration insulator number Kiera De La Cruz ([phone]). 04:05 Reassessment: Dr. Hdz reports POA requested comfort measures only. Pt resting with ea eyes closed, respirations even and unlabored, chest expansions even and symmetrical. Pt responds to painful stimulus only. House to BSD, IV patent with fluid. 06:53 Reassessment: Report given to Receiving nurse on fourth floor. ea 07:35 Reassessment: Patient appears in no apparent distress at this time. Pt asleep w/ equal ph and unlabored respirations, COVID -19 swab resulted negative so pt will be admitted to 2nd floor rather than 4th, awaiting room assignment. Vital Signs: 00:39 BP 121 / 48; Pulse 111; Resp 12; Pulse Ox 95% on Non-rebreather mask; Weight 45.36 kg; ea Height 5 ft. 3 in. (160.02 cm); 01:38 Temp 101.1(R); ea 02:33 BP 96 / 65; Pulse 72; Resp 16; Pulse Ox 95% on NC; ea 03:02 BP 86 / 46; Pulse 65; Resp 18; Pulse Ox 100% on 4 lpm NC; ea 03:35 Temp 97.5(R); ea 04:11 BP 74 / 43; Pulse 60; Resp 18; Pulse Ox 98% on 4 lpm NC; ea 06:53 BP 88 / 47; Pulse 55; Pulse Ox 99% on 4 lpm NC; ea 07:56 BP 87 / 43; Pulse 57; Resp 16; Temp 97.1(TE); Pulse Ox 99% on 4 lpm NC; ph 00:39 Body Mass Index 17.71 (45.36 kg, 160.02 cm) ea ED Course: 00:36 Patient arrived in ED. jb4 00:38 Gaye Hazel, RN is Primary Nurse. ea 00:38 Patient has correct armband on for positive identification. Bed in low position. Call ea light in reach. Side rails up X2. 00:39 Patient placed in an exam room, on a stretcher, on oxygen, on pulse oximetry. ea 00:46 Triage completed. ea 00:51 Carlos Torres MD is Attending Physician. tw4 00:55 Pt arrived with house in place to BSD. ea 01:01 Inserted saline lock: 20 gauge in left antecubital area, using aseptic technique. Blood ea collected. 02:02 Chest Single View XRAY In Process Unspecified. EDMS 02:30 Jean Paul Hdz is Hospitalizing Provider. tw4 02:46 Notified ED physician of a critical lab result(s). Amylase 210, Lactate 2.2. lp1 02:51 Notified ED physician of a critical lab result(s). Bands 15%. lp1 03:44 Patient admitted, IV remains in place. ea 04:17 No provider procedures requiring assistance completed. ea Administered Medications: 01:38 Drug: NS 0.9% (30 ml/kg) 30 ml/kg Route: IV; Rate: bolus; Site: left antecubital; ea 03:35 Follow up: Response: No adverse reaction; IV Status: Completed infusion; IV Intake: ea 1300ml 02:15 Drug: Tylenol Suppository 650 mg Route: GA; ea 03:35 Follow up: Response: No adverse reaction ea 02:45 Drug: Rocephin - (cefTRIAXone) 1 grams Route: IVPB; Infused Over: 30 mins; Site: left ea antecubital; 03:00 Follow up: Response: No adverse reaction; IV Status: Completed infusion; IV Intake: 10mlea 02:50 Drug: AZITHromycin 500 mg Route: IVPB; Infused Over: 1 hrs; Site: left antecubital; ea 03:55 Follow up: Response: No adverse reaction; IV Status: Completed infusion; IV Intake: ea 250ml Intake: 03:00 IV: 10ml; Total: 10ml. ea 03:35 IV: 1300ml; Total: 1310ml. ea 03:55 IV: 250ml; Total: 1560ml. ea Outcome: 02:31 Decision to Hospitalize by Provider. tw4 02:32 Instructed on Family notified of pt's need to be admitted ea 04:17 Admitted to ER Hold. [facility]. ea 04:17 Condition: pt admitted for comfort care ea 07:57 Patient left the ED. ph Signatures: Dispatcher [employer] EDMS West, Candice, RN RN lp1 Cynthia Allison RN RN Girma López RN RN jb4 Gaye Hazel RN RN ea Wadley, Terrence, MD MD tw4 Corrections: (The following items were deleted from the chart) 04:12 03:02 BP 86 / 46; Pulse 65bpm; Resp 18bpm; Pulse Ox 100% RA; ea ea 06:54 06:53 BP 88 / 47; Pulse 55bpm; Pulse Ox 99%; ea ea
--- NOTE | 2019-11-24 02:31 | EDPHYS ---
Physician Documentation [facility] Name: Nela Ennis Age: 89 yrs Sex: Female : 1930 Arrival Date: 11/24/2019 Time: 00:36 Bed 3 Private MD: ED Physician Carlos Torres HPI: 11/23 04:50 This 89 yrs old Female presents to ER via EMS with complaints of SOB AND FEVER.tw4 04:50 The patient has shortness of breath at rest. Onset: The symptoms/episode began/occurred tw4 today. Duration: The symptoms are continuous, but are steadily getting better. The patient's shortness of breath has no apparent modifying factors. Associated signs and symptoms: The patient has no apparent associated signs or symptoms. The patient has not experienced similar symptoms in the past. Historical: - Allergies: 01:49 PENICILLINS; ea - PMHx: 01:49 High Cholesterol; Dementia; CAD; Alzheimers; ADD/ADHD; ea - Immunization history:: Adult Immunizations unknown. - Social history:: Smoking status: unknown. ROS: 04:50 Eyes: Negative for injury, pain, redness, and discharge, ENT: Negative for injury, tw4 pain, and discharge, Cardiovascular: Negative for chest pain, palpitations, and edema, Abdomen/GI: Negative for abdominal pain, nausea, vomiting, diarrhea, and constipation, Back: Negative for injury and pain, MS/Extremity: Negative for injury and deformity, Skin: Negative for injury, rash, and discoloration, Neuro: Negative for headache, weakness, numbness, tingling, and seizure. 04:50 Constitutional: Positive for fever. 04:50 Respiratory: Positive for shortness of breath. Exam: 04:50 Head/Face: Normocephalic, atraumatic. tw4 04:50 Chest/axilla: Normal chest wall appearance and motion. Nontender with no deformity. No lesions are appreciated. Cardiovascular: Regular rate and rhythm with a normal S1 and S2. No gallops, murmurs, or rubs. Normal PMI, no JVD. No pulse deficits. 04:50 MS/ Extremity: Pulses equal, no cyanosis. Neurovascular intact. Full, normal range of motion. 04:50 Constitutional: The patient appears non-diaphoretic, frail, lethargic, listless. 04:50 Respiratory: the patient does not display signs of respiratory distress, Respirations: no acute changes, Breath sounds: rhonchi, are scattered. 04:50 Skin: induration, that is moderate is noted, located on the coccyx. Vital Signs: 00:39 BP 121 / 48; Pulse 111; Resp 12; Pulse Ox 95% on Non-rebreather mask; Weight 45.36 kg; ea Height 5 ft. 3 in. (160.02 cm); 01:38 Temp 101.1(R); ea 02:33 BP 96 / 65; Pulse 72; Resp 16; Pulse Ox 95% on NC; ea 03:02 BP 86 / 46; Pulse 65; Resp 18; Pulse Ox 100% on 4 lpm NC; ea 03:35 Temp 97.5(R); ea 04:11 BP 74 / 43; Pulse 60; Resp 18; Pulse Ox 98% on 4 lpm NC; ea 06:53 BP 88 / 47; Pulse 55; Pulse Ox 99% on 4 lpm NC; ea 07:56 BP 87 / 43; Pulse 57; Resp 16; Temp 97.1(TE); Pulse Ox 99% on 4 lpm NC; ph 00:39 Body Mass Index 17.71 (45.36 kg, 160.02 cm) ea MDM: 00:51 Patient medically screened. tw4 04:50 Differential diagnosis: Anemia reactive airway disease. Antibiotic administration: Not tw4 indicated. Data reviewed: vital signs, nurses notes. Data interpreted: Pulse oximetry: Interpretation: normal. Counseling: I had a detailed discussion with the patient and/or guardian regarding: the historical points, exam findings, and any diagnostic results supporting the discharge/admit diagnosis. Physician consultation: Jean Paul Hdz regarding admission, to the telemetry unit. need to come to ED to see patient, and will see patient in ED. ED course: Pt was recently on hospice and it was cancelled after patient had a recent admission to the hospital 2 weeks ago according to daughter. Pt will be made DNR after discussion with daughter per Dr Hdz . 11/23 00:53 Order name: Amylase, Serum tw4 11/23 00:53 Order name: Basic Metabolic Panel tw4 11/23 00:53 Order name: Blood Culture Adult (2) tw4 11/23 00:53 Order name: CBC with Diff tw4 11/23 00:53 Order name: Ckmb 11/23 00:53 Order name: CPK 11/23 00:53 Order name: Lactate 11/23 00:53 Order name: LFT's 11/23 00:53 Order name: Lipase 11/23 00:53 Order name: Procalcitonin 11/23 00:53 Order name: Protime (+inr) 11/23 00:53 Order name: Ptt, Activated 11/23 00:53 Order name: Troponin (emerg Dept Use Only) 11/23 00:53 Order name: Urine Microscopic Only 11/23 00:53 Order name: Chest Single View XRAY 11/23 00:53 Order name: Accucheck; Complete Time: 01:50 11/23 00:53 Order name: Cardiac monitoring; Complete Time: 01:17 11/23 00:53 Order name: EKG - Nurse/Tech; Complete Time: 01:11/23 00:53 Order name: IV Saline Lock - Large Bore; Complete Time: 01:50 11/23 00:53 Order name: COVID-19 11/23 00:53 Order name: Flu 11/23 01:53 Order name: Manual Differential EDSC 11/23 02:00 Order name: Glucose, Ancillary Testing EDSC 11/23 04:29 Order name: Urine Culture EDSC 11/23 04:50 Order name: NPO EDSC 11/23 00:53 Order name: O2 Per Protocol; Complete Time: 01:17 11/23 00:53 Order name: O2 Sat Monitoring; Complete Time: 01:17 11/23 00:53 Order name: Cardiac monitoring; Complete Time: 01:16 11/23 00:53 Order name: Droplet/Contact Precautions; Complete Time: :16 11/23 00:53 Order name: EKG - Nurse/Tech; Complete Time: 01:16 11/23 00:53 Order name: Labs collected and sent; Complete Time: 02:34 11/23 00:53 Order name: O2 Per Protocol; Complete Time: 01:17 11/23 00:53 Order name: O2 Sat Monitoring; Complete Time: 01:17 11/23 00:53 Order name: Urine Dipstick-Ancillary (obtain specimen); Complete Time: 04:09 tw4 Administered Medications: 01:38 Drug: NS 0.9% (30 ml/kg) 30 ml/kg Route: IV; Rate: bolus; Site: left antecubital; ea 03:35 Follow up: Response: No adverse reaction; IV Status: Completed infusion; IV Intake: ea 1300ml 02:15 Drug: Tylenol Suppository 650 mg Route: ID; ea 03:35 Follow up: Response: No adverse reaction ea 02:45 Drug: Rocephin - (cefTRIAXone) 1 grams Route: IVPB; Infused Over: 30 mins; Site: left ea antecubital; 03:00 Follow up: Response: No adverse reaction; IV Status: Completed infusion; IV Intake: 10mlea 02:50 Drug: AZITHromycin 500 mg Route: IVPB; Infused Over: 1 hrs; Site: left antecubital; ea 03:55 Follow up: Response: No adverse reaction; IV Status: Completed infusion; IV Intake: ea 250ml Disposition: 11/24/19 02:31 Hospitalization ordered by Jean Paul Hdz for Inpatient Admission. Preliminary diagnosis are Pneumonia, unspecified organism, Fever, unspecified. - Bed requested for Telemetry/MedSurg (Inpatient). - Status is Inpatient Admission. ph - Condition is Fair. - Problem is new. - Symptoms are unchanged. Signatures: Dispatcher [employer] EDMS Christin Quezada RN RN tl1 Cynthia Allison RN Gaye Hewitt ph, RN Jovon Rosen ea, RN RN ja1 Carlos Torres MD MD tw4 Corrections: (The following items were deleted from the chart) 01:17 00:53 Leone ordered. tw4 lp1 01:18 00:53 Labs collected and sent ordered. 4 lp1 01:18 00:53 Urine Dipstick-Ancillary ordered. tw4 lp1 01:18 00:53 IV Saline Lock ordered. tw4 lp1 04:10 02:31 Hospitalization Ordered by Jean Paul Hdz for Inpatient Admission. Preliminary tl1 diagnosis is Pneumonia, unspecified organism; Fever, unspecified. Bed requested for Telemetry/MedSurg (Inpatient). Status is Inpatient Admission. Condition is Fair. Problem is new. Symptoms are unchanged. tw4 06:14 04:10 11/24/2019 02:31 Hospitalization Ordered by Jean Paul Hdz for Inpatient tl1 Admission. Preliminary diagnosis is Pneumonia, unspecified organism; Fever, unspecified. Bed requested for [facility] ER HOLD. Status is Inpatient Admission. Condition is Fair. Problem is new. Symptoms are unchanged. 1 07:23 06:14 11/24/2019 02:31 Hospitalization Ordered by Jean Paul Hdz for Inpatient ja1 Admission. Preliminary diagnosis is Pneumonia, unspecified organism; Fever, unspecified. Bed requested for Telemetry/MedSurg (Inpatient). Status is Inpatient Admission. Condition is Fair. Problem is new. Symptoms are unchanged. 1 07:28 07:23 11/24/2019 02:31 Hospitalization Ordered by Jean Paul Hdz for Inpatient ja1 Admission. Preliminary diagnosis is Pneumonia, unspecified organism; Fever, unspecified. Bed requested for Telemetry/MedSurg (Inpatient). Status is Inpatient Admission. Condition is Fair. Problem is new. Symptoms are unchanged. [facility] 07:57 07:28 11/24/2019 02:31 Hospitalization Ordered by Jean Paul Hdz for Inpatient ph Admission. Preliminary diagnosis is Pneumonia, unspecified organism; Fever, unspecified. Bed requested for Telemetry/MedSurg (Inpatient). Status is Inpatient Admission. Condition is Fair. Problem is new. Symptoms are unchanged. ja
[2019-11-24 02:44] LABS: ALT/SGPT 19 U/L (12-78); AST/SGOT 20 U/L (15-37); Alkaline Phosphatase 77 U/L (45-117); BUN Blood Urea Nitrogen 28 mg/dL (7-18); Bicarbonate 30 mmol/L (21-32); Bilirubin Direct 0.5 mg/dL (0-0.2); CKMB Creatine Kinase MB < 1.0 ng/mL (0.3-3.6); Creatine Phosphokinase 49 U/L (26-192); Glucose Level 138 mg/dL (74-106); Lipase 23 U/L (73-393); Potassium 5.4 mmol/L (3.5-5.1); Protein, Total 6.1 g/dL (6.4-8.2); Sodium Level 140 mmol/L (136-145); Troponin (Emerg Dept Use Only) 0.15 ng/mL (0.0-0.045)
[2019-11-24 02:45] LABS: Amylase Level 210 U/L (25-115)
[2019-11-24] MEDS ORDERED: NA CHLORIDE 0.9% 250 ML ONE (02:45)
[2019-11-24] MEDS ORDERED: CEFTRIAXONE/SWI 1gm 1 GM/10 ML SYR ONE (02:45)
[2019-11-24] MEDS ORDERED: AZITHROMYCIN 500 MG INJ IVPB ONE (02:47)
[2019-11-24 02:52] LABS: Blood Morphology Comment NOT SEEN (NOT SEEN); Platelet Estimate ADEQ
--- NOTE | 2019-11-24 03:35 | P.HP ---
Certification for Inpatient Patient admitted to: Inpatient With expected LOS: >2 Midnights Practitioner: I am a practitioner with admitting privileges, knowledge of patient current condition, hospital course, and medical plan of care. Services: Services provided to patient in accordance with Admission requirements found in Title 42 Section 412.3 of the Code of Federal Regulations Patient History Date of Service: 11/24/19 Reason for admission: Fever History of Present Illness: 81-year-old woman with a history of advanced dementia was brought to the emergency department due to fever and hypoxia. Patient was discharged from hospitalization 4 days ago. She has a large stage IV decubitus ulcer which was debrided. She was supposed to be admitted to hospice after discharge home but per report, hospice never got to see patient. Patient developed fever and was noted to be hypoxic with oxygen saturation 72% on room air. She was therefore brought to the ED for evaluation. Rectal temperature on arrival was 101. Chest x-ray in the ED shows bilateral infiltrates. The patient has no leukocytosis but has a significant left shift with bandemia. Her serum creatinine is elevated. Patient is unresponsive and cannot provide any complain. Allergies Penicillins Allergy (Severe, Verified 08/24/19 23:06) Shortness of breath - Past Medical/Surgical History Diabetic: No -: dementia -: alzheimers -: CAD -: BLACK KNEE REPLACEMENT -: HEART STENTS -: RIGHT FEMUR SX - Family History Father -: Hypertension Sister -: Cancer - Social History Alcohol use: No CD- Drugs: No Caffeine use: No Review of Systems is unable to be obtained (Advanced dementia) Physical Examination - Physical Exam General: In no apparent distress, Cachectic, Unresponsive, Other (Frail) HEENT: Atraumatic, Normocephalic, PERRLA, Sclerae nonicteric Neck: Supple, JVD not distended Respiratory: Clear to auscultation bilaterally, Normal air movement Cardiovascular: No edema, Regular rate/rhythm, Normal S1 S2 Capillary refill: <2 Seconds Gastrointestinal: Normal bowel sounds, Soft and benign, Non-distended, No tenderness Musculoskeletal: No swelling Integumentary: Other (Large stage IV sacral decubitus ulcer, stage IV ulcer of heels) Neurological: Other (Unresponsive) Urinary: Leone catheter - Studies Laboratory Data (last 24 hrs) 11/24/19 01:34: PT 12.7 H, INR 1.08, APTT 27.9 11/24/19 01:34: WBC 9.0 D, Hgb 10.7 L, Hct 33.2 L D, Plt Count 224 11/24/19 01:34: Sodium 140, Potassium 5.4 H, BUN 28 H, Creatinine 1.49 H D, Glucose 138 H, Total Bilirubin 1.0, AST 20, ALT 19, Alkaline Phosphatase 77, Amylase 210 H*, Lipase 23 L Microbiology Data (last 24 hrs): 11/24/19 01:11 Nasopharnyx Influenza Type A Antigen Screen - Final 11/24/19 01:11 Nasopharnyx Influenza Type B Antigen Screen - Final Assessment and Plan - Problems (Diagnosis) (1) Sepsis Status: Acute (2) Septic shock Status: Acute (3) Pneumonia Status: Acute (4) Acute respiratory failure with hypoxia Status: Acute (5) Anemia Onset Date: 04/12/18 Status: Acute (6) Decubitus ulcer, stage IV Status: Acute (7) Acute renal failure Status: Acute (8) Advanced dementia Status: Acute - Plan I spoke to the daughter who wants to pursue comfort measures only. Admit patient to the medical floor Droplet precautions Test for Covid 19 obtained. Comfort measures only. IV opiates p.r.n. Supplemental oxygen and titrate for comfort Ativan p.r.n. for agitation. Daughter hope patient can make it through the morning so she can be discharged to home to continue comfort measures. Her goal is for patient to at home. - Advance Directives Does patient have a Living Will: Yes Does patient have a Durable POA for Healthcare: Yes - Code Status/Comfort Care Code Status: Do Not Attempt Resuscitat
[2019-11-24 04:26] LABS: Urine Culture Reflex Order REFLEXED; Urine Yeast MANY (NONE SEEN); Urine Yeast with Hyphae PRESENT
[2019-11-24 04:27] LABS: Calcium Oxalate Crystals- Ur MANY (NONE SEEN); Urine Bacteria 20-50 /HPF (<20); Urine RBC <5 /HPF (NONE SEEN)
[2019-11-24] MEDS: NA CHLORIDE 0.9% 1,000 ML IV SCH ×3 (04:49→22:48)
[2019-11-24] MEDS ORDERED: GLYCOPYRROLATE 0.2 MG/ML SYR IV PRN (04:49)
[2019-11-24] MEDS ORDERED: ACETAMINOPHEN 650MG/RECT SUPP RECT PRN (04:49)
[2019-11-24] MEDS ORDERED: MORPHINE 4 MG/ML SYR IV PRN (04:49)
[2019-11-24] MEDS ORDERED: LORazepam 2 MG/ML VIAL IV PRN (04:49)
[2019-11-24] MEDS ORDERED: ONDANSETRON 4 MG/2 ML VIAL IV PRN (04:49)
[2019-11-24 05:35] VITALS: BMI 17.6
--- NOTE | 2019-11-24 07:11 | RAD REPORT ---
EXAM DESCRIPTION: Erik Single View11/24/2019 2:02 am CLINICAL HISTORY: Cough COMPARISON: October 2019 FINDINGS: [id number] bilateral pulmonary opacities. The heart is normal size IMPRESSION: [id number] bilateral pulmonary opacities may represent pneumonia or pulmonary sam ma
--- NOTE | 2019-11-24 14:42 | EKG ---
Test Date: 2019-11-24 Test Time: 01:07:55 Credit Director: OBDULIO MEASUREMENT RESULTS: Intervals: Rate: 91 MS: 144 QRSD: 80 QT: 360 QTc: 442 Malcolm: P: 62 MS: 144 QRS: 26 T: 90 INTERPRETIVE STATEMENTS: Normal sinus rhythm T wave abnormality, consider anterior ischemia Abnormal ECG Compared to ECG 11/08/2019 12:33:58 T-wave abnormality now present Possible ischemia now present Electronically Signed On 11-24-19 14:41:04 CDT by Raul Brown
[2019-11-25] MEDS: NA CHLORIDE 0.9% 1,000 ML IV SCH ×2 (13:04→20:49)
[2019-11-25 22:23] VITALS: O2SAT 93
[2019-11-26] MEDS: NA CHLORIDE 0.9% 1,000 ML IV SCH (01:35)
--- NOTE | 2019-11-26 04:40 | DS ---
Discharge Diagnoses: 1. Sepsis. 2. Septic shock. 3. Pneumonia. 4. Acute respiratory failure with hypoxia. 5. Anemia. 6. Decubitus ulcer, stage IV. 7. Acute renal failure, kidney injury. 8. Advanced dementia. Hospital Course: Patient is an 89-year-old female, comes in with fever, hypoxia. Patient was recently discharged from the hospital with stage IV decubitus ulcer, which was debrided. The patient was discharged on hospice, however, was never seen per family's report and became hypoxic. Therefore, she was brought back into the hospital. Patient was found to have bilateral infiltrates, pneumonia, sepsis with septic shock. She was tested for COVID, which was negative. As patient is in hospice, she was placed on care and comfort measures only. She was given supplemental oxygen for comfort. IP hospice was consulted and the patient was switched over to IPH services. Patient to be discharged on IPH services, home O2 has been set up. Overall, very poor prognosis. Her code status is do not resuscitate. For physical exam findings, please see progress note dictated on day of discharge. Total time spent discharging patient was 45 minutes. MARIO Voice ID: [id number] Report ID: [id number] CESIA
--- NOTE | 2019-11-26 05:01 | DS ---
History: Patient is seen and examined. Chart reviewed and case discussed with RN. Patient's code rajesh tabares is do not resuscitate, awaiting hospice. Patient was on hospice previously. Medications: List reviewed. Physical Examination: Vital Signs: Temperature 97.5, heart rate 80, blood pressure 168/65 respirations 14, O2 100% on 4 L via nasal cannula. General: Asleep, arousable to sternal rub, ill-appearing elderly female, frail, cachectic. BMI 17. CV: S1, S2. Regular rate and rhythm. Peripheral pulses weak. Respiratory: Diminished breath sounds. No wheezing or stridor. Gastrointestinal: Abdomen is soft and nondistended. Positive bowel sounds. Extremities: No clubbing, cyanosis or edema. Neuro: Unable to properly assess due to patient's condition, is nonverbal. Does not follow commands . Does move upper extremities to sternal rub and minimally opens her eyes. Laboratory Data: Urine culture growing out 100,000 colony-forming units of yeast and blood cultures no growth to date. COVID testing is pending this time. Assessment: An 89-year-old female with, 1.Sepsis secondary to decubitus ulcer and possibly urinary tract infection with septic shock. Blood pressure has now improved. Patient currently in care and comfort measures only. 2.Pneumonia. 3.Acute respiratory failure with hypoxia, currently on 4 L of oxygen. 4.Anemia, normocytic normochromic likely anemia of chronic disease. 5.Stage IV decubitus ulcer. Continue with wound care and offloading. 6.Acute kidney injury. Creatinine is elevated at 3.49. 7.Patient had been investigated for coronavirus disease, the test is negative from [facility]. 8.Advanced dementia, likely Alzheimer's type. Plan: We will continue with comfort measures only. Patient is being switched over to [facility] hospice an d we will discharge once oxygen is set up and [facility] hospice is set up today back to facility. /CHAD Voice ID: [id number] Report ID: [id number]
--- NOTE | 2019-11-26 11:01 | PN ---
Date of Progress Note: 11/26/2019 Subjective: Patient seen and examined. Chart reviewed and case discussed with RN. Patient is still awaiting oxygen delivery before she can be sent back with hospice. Patient is awaiting equipment delivery from [facility] once accepting physician approves. No new events overnight. Medications: List reviewed. Physical Examination: Vital Signs: Temperature 98.2, heart rate 97, blood pressure 156/73, respirations 18, O2 99% on 4 L via nasal cannula. General: Awake, alert, oriented to self. Elderly female, frail, cachectic. BMI 17. CV: S1, S2. Respiratory: Moving air well bilaterally. No wheezing or stridor. Gastrointestinal: Abdomen is soft, nontender, nondistended. Positive bowel sounds. Extremities: No clubbing, cyanosis, edema. Neurologic: Nonfocal. Laboratory Data: No labs being done due to care and comfort measures. Assessment: Am 89-year-old female with: 1. Sepsis secondary to decubitus ulcer and urinary tract infection with septic shock, improved, currently on care and comfort measures. 2. Pneumonia. 3. Acute respiratory failure with hypoxia, currently on 4 L of oxygen, awaiting home O2 setup. 4. Normocytic, normochromic anemia, anemia of chronic disease. 5. Stage IV decubitus ulcer. Continue with wound care and offloading. 6. Acute kidney injury. 7. Patient under investigation for coronavirus disease. Testing is negative. 8. Advanced dementia, likely Alzheimer's type without behavioral disturbance. Plan: waiting for [facility] setup and oxygen delivery prior to discharge. /CHAD Voice ID: [id number] Report ID: [id number] [facility]
[2019-11-26 12:53] VITALS: BP 141/82; TEMP 97.6
== END 2019-11-26 14:09 | disposition hospice, home (50) | DRG 871 ==
LOC: ER 00:34 → ERHOLD 04:57 → 4TH 06:54 → 2ND 07:47
PROVIDERS: ADMIT Internal Medicine; ATTEND Family Medicine
DX: A41.9 Sepsis, unspecified organism (principal); L89.154 Pressure ulcer of sacral region, stage 4; L89.604 Pressure ulcer of unspecified heel, stage 4; R65.21 Severe sepsis with septic shock; J18.9 Pneumonia, unspecified organism; J96.01 Acute respiratory failure with hypoxia; N17.9 Acute kidney failure, unspecified; N39.0 Urinary tract infection, site not specified; R64 Cachexia; Z68.1 Body mass index [BMI] 19.9 or less, adult; Z96.653 Presence of artificial knee joint, bilateral; I25.10 Atherosclerotic heart disease of native coronary artery without angina pectoris; Z66 Do not resuscitate; Z95.5 Presence of coronary angioplasty implant and graft; Z88.0 Allergy status to penicillin; D63.8 Anemia in other chronic diseases classified elsewhere; G30.9 Alzheimer's disease, unspecified; F02.80 Dementia in other diseases classified elsewhere, unspecified severity, without behavioral disturbance, psychotic disturbance, mood disturbance, and anxiety; Z20.828 Contact with and (suspected) exposure to other viral communicable diseases
CPT/HCPCS: 36415; 71045; 80048; 80076; 81015; 82150; 82550; 82553; 82947; 83605; 83690; 84145; 84484; 85025; 85610; 85730; 87040; 87086; 87088; 87804; 93005; 96365; 96375; 99285; J0456; J0696; J7030